=== PATIENT | male | born 1965 | race Caucasian/White ===

== ENCOUNTER 2016-06-08 19:25 | Emergency (ER) | payer OTHER ==
[~2016-06-08] VITALS: Ht 180.3 cm; Wt 75.0 kg
[~2016-06-08 19:25] MED LIST: AMIT1TAB79 PO; FOLI1TAB4 PO; PARO20TA2 PO; PRAZ1 PO; PROT40TA PO; QUET1TAB7 PO; SERO100T PO; TRAZ50TA12 PO
[2016-06-08 19:39] VITALS: BP 154/86; PULSE 88; RESP 22; TEMP 98.9; O2SAT 99
--- NOTE | 2016-06-08 19:42 | PD ---
HPI Chief Complaint: Psychiatric Symptoms Time Seen by Provider: 19:41 Travel History International Travel<30 days: No Contact w/Intl Traveler<30days: No History of Present Illness HPI 50 year old male with history of bipolar, depression, PTSD presents to the ED under Delgado act for psychiatric evaluation. Patient endorses suicidal ideation , states that he intends to stab himself with a knife. Endorses previous history of psychiatric hospitalization and previous suicide attempt. He endorses drinking heavily, states that he feels like "the world is unsafe." He wants to be admitted to the inpatient treatment center. Denies somatic complaints on presentation. PFSH Past Medical History Blood Disorders: No Bipolar Disorder: Yes Anxiety: Yes (PANIC DISORDERS) Depression: Yes Cancer: No Cardiovascular Problems: Yes (HTN) Chest Pain: Yes Cerebrovascular Accident: Yes Diabetes: No Diminished Hearing: No Endocrine: No Gastrointestinal Disorders: Yes (hep c) GERD: Yes Genitourinary: Yes Hepatitis: Yes (HEP C) Hypertension: Yes Immune Disorder: No Implanted Vascular Access Dvce: Yes Insomnia: Yes Kidney Stones: Yes Musculoskeletal: No Neurologic: No Psychiatric: Yes (bipolar disorder) Reproductive: No Respiratory: No Integumentary: Yes Immunizations Current: Yes Migraines: Yes Radiation Therapy: No Renal Failure: No Schizophrenia: Yes Seizures: No Ulcer: Yes Past Surgical History Abdominal Surgery: No AICD: No Body Medical Devices: TITANIUM PIECE LEFT CHEEK AREA. Cardiac Surgery: No Ear Surgery: No Endocrine Surgery: No Eye Surgery: No Genitourinary Surgery: No Joint Replacement: No Neurologic Surgery: No Oral Surgery: No Pacemaker: No Thoracic Surgery: No Other Surgery: Yes (FACIAL SURGERY) Social History Alcohol Use: Yes (PT ADMITS TO DRINKING A 24 PACK BEER DAILY. 1/5 + per day. ) Tobacco Use: Yes (5 cig per day) Substance Use: Yes (LONG H/O COCAINE, DAILY ALCOHOL ABUSE) Allergies-Medications (Allergen,Severity, Reaction): Coded Allergies: Penicillin (Verified Adverse Reaction, Severe, SYNCOPE, 06/08/16) PT DENIES ANY ALLERGY Reported Meds & Prescriptions Reported Meds & Active Scripts Active Trazodone (Trazodone HCl) 50 Mg Tab 100 Mg PO HS Quetiapine (Quetiapine Fumarate) 25 Mg Tab 50 Mg PO HS Minipress (Prazosin HCl) 1 Mg Cap 1 Mg PO Q12HR Paroxetine (Paroxetine HCl) 20 Mg Tab 20 Mg PO DAILY Protonix (Pantoprazole Sodium) 40 Mg Tab 40 Mg PO DAILY Folate (Folic Acid) 1 Mg Tab 1 Mg PO DAILY Elavil (Amitriptyline HCl) 25 Mg Tab 25 Mg PO HS 30 Days Paroxetine (Paroxetine HCl) 20 Mg Tab 20 Mg PO DAILY 30 Days Reported Seroquel (Quetiapine Fumarate) 100 Mg Tab 100 Mg PO DAILY Review of Systems ROS Limitations: Intoxication Except as stated in HPI: all other systems reviewed are Neg Physical Exam Exam Limitations: Intoxication Narrative GENERAL: Well-nourished, well-developed intoxicated white male in no acute distress. SKIN: Warm and dry. HEAD: Normocephalic. EYES: No scleral icterus. No injection or drainage. NECK: Supple, trachea midline. No JVD or lymphadenopathy. CARDIOVASCULAR: Regular rate and rhythm without murmurs, gallops, or rubs. 2+ DP and radial pulses bilaterally. RESPIRATORY: Breath sounds clear and equal bilaterally. No accessory muscle use. GASTROINTESTINAL: Abdomen soft, non-tender, nondistended. active bowel sounds. MUSCULOSKELETAL: No cyanosis, or edema. Patient is ambulatory and moves extremities spontaneously. BACK: Nontender without obvious deformity. No CVA tenderness. Data Data Last Documented VS Vital Signs Date Time Temp Pulse Resp B/P Pulse Ox O2 Delivery O2 Flow Rate FiO2 06/09/16 08:03 99 20 169/102 06/08/16 19:39 98.9 99 Orders Complete Blood Count With Diff (06/08/16 19:41) Comprehensive Metabolic Panel (06/08/16 19:41) Drug Screen, Random Urine (06/08/16 19:41) Alcohol (Ethanol) (06/08/16 19:41) Psych Screen (06/08/16 19:41) Thiamine Inj (Thiamine Inj) (06/08/16 22:00) Diet Regular Basic (06/09/16 Breakfast) Lorazepam (Ativan) (06/09/16 08:22) Labs Laboratory Tests Test 06/08/16 06/08/16 20:09 20:10 White Blood Count 9.7 TH/MM3 Red Blood Count 5.14 MIL/MM3 Hemoglobin 15.8 GM/DL Hematocrit 46.5 % Mean Corpuscular Volume 90.4 FL Mean Corpuscular Hemoglobin 30.8 PG Mean Corpuscular Hemoglobin 34.1 % Concent Red Cell Distribution Width 14.7 % Platelet Count 311 TH/MM3 Mean Platelet Volume 7.6 FL Neutrophils (%) (Auto) 54.1 % Lymphocytes (%) (Auto) 31.8 % Monocytes (%) (Auto) 9.8 % Eosinophils (%) (Auto) 3.2 % Basophils (%) (Auto) 1.1 % Neutrophils # (Auto) 5.3 TH/MM3 Lymphocytes # (Auto) 3.1 TH/MM3 Monocytes # (Auto) 1.0 TH/MM3 Eosinophils # (Auto) 0.3 TH/MM3 Basophils # (Auto) 0.1 TH/MM3 CBC Comment DIFF FINAL Differential Comment Sodium Level 140 MEQ/L Potassium Level 3.5 MEQ/L Chloride Level 104 MEQ/L Carbon Dioxide Level 26.4 MEQ/L Anion Gap 10 MEQ/L Blood Urea Nitrogen 8 MG/DL Creatinine 0.85 MG/DL Estimat Glomerular Filtration 96 ML/MIN Rate Random Glucose 94 MG/DL Calcium Level 8.6 MG/DL Total Bilirubin 0.2 MG/DL Aspartate Amino Transf 62 U/L (AST/SGOT) Alanine Aminotransferase 114 U/L (ALT/SGPT) Alkaline Phosphatase 85 U/L Total Protein 8.4 GM/DL Albumin 4.1 GM/DL Ethyl Alcohol Level 301 MG/DL Urine Opiates Screen NEG Urine Barbiturates Screen NEG Urine Amphetamines Screen NEG Urine Benzodiazepines Screen NEG Urine Cocaine Screen NEG Urine Cannabinoids Screen NEG MDM Medical Decision Making Medical Screen Exam Complete: Yes Emergency Medical Condition: Yes Differential Diagnosis Adjustment disorder versus anxiety versus bipolar versus depression versus dementia versus electrolyte disorder versus malingering versus mood disorder versus ODD versus psychosis versus PTSD versus schizophrenia versus schizoaffective disorder versus substance-induced mood disorder versus other Narrative Course 50-year-old male with history of alcohol dependence, depression, anxiety, bipolar presents to the ED under Delgado act for evaluation of SI. Patient states that he wants to stab himself with a knife. States that he feels the world is unsafe. He endorses history of previous suicide attempt and previous psychiatric hospitalization. Denies somatic complaints on presentation. Reviewed. Physical exam reveals an intoxicated white male in no acute distress. Chest is clear to auscultation bilaterally. Abdomen is soft and nontender. Otherwise unremarkable. Lab work pending. Patient signed out to Dr. Rogers. Anticipate medical clearance for psychiatric evaluation. Please see their notes for disposition. Diagnosis Primary Impression: Medical clearance for psychiatric admission Additional Impression: Alcohol dependence Qualified Code: F10.20 - Uncomplicated alcohol dependence Shari Mejia Jun 08, 2016 19:42
[2016-06-08 20:37] LABS: AUTOMATED NEUTROPHIL # 5.3 TH/MM3 (1.8-7.7); BASOPHIL # 0.1 TH/MM3 (0-0.2); BASOPHIL % 1.1 % (0.0-2.0); EOSINOPHIL # 0.3 TH/MM3 (0-0.4); EOSINOPHIL % 3.2 % (0.0-4.0); HEMATOCRIT 46.5 % (39.0-51.0); HEMO FLAGS DIFF FINAL; LYMPH % 31.8 % (9.0-44.0); LYMPHOCYTE # 3.1 TH/MM3 (1.0-4.8); MEAN CELL VOLUME 90.4 FL (80.0-100.0); MEAN CORPUSCULAR HEMOGLOBIN 30.8 PG (27.0-34.0); MEAN CORPUSCULAR HGB CONC 34.1 % (32.0-36.0); MONO % 9.8 % (0.0-8.0); NEUT % 54.1 % (16.0-70.0); PLATELET COUNT 311 TH/MM3 (150-450); RED BLOOD COUNT 5.14 MIL/MM3 (4.50-5.90); RED CELL DISTRIBUTION WIDTH 14.7 % (11.6-17.2); WHITE BLOOD COUNT 9.7 TH/MM3 (4.0-11.0)
[2016-06-08 20:38] LABS: AMPHETAMINE, URINE NEG (NEG); BARBITURATES, URINE NEG (NEG); COCAINE, URINE NEG (NEG)
[2016-06-08 20:53] LABS: ANION GAP 10 MEQ/L (5-15)
[2016-06-08 20:58] LABS: ALKALINE PHOSPHATASE 85 U/L (45-117); ALT (GPT) 114 U/L (12-78); AST (GOT) 62 U/L (15-37); BICARBONATE 26.4 MEQ/L (21.0-32.0); BLOOD UREA NITROGEN 8 MG/DL (7-18); CHLORIDE 104 MEQ/L (98-107); GLOMERULAR FILTRATION RATE 96 ML/MIN (>89); POTASSIUM 3.5 MEQ/L (3.5-5.1); SODIUM (NA) 140 MEQ/L (136-145); TOTAL BILIRUBIN ADULT 0.2 MG/DL (0.2-1.0)
--- NOTE | 2016-06-08 21:55 | PD ---
Physical Exam Narrative I, Dr. Rogers, have reviewed the advance practice practitioner's documentation and am in agreement, met with the patient face to face, made the diagnosis, and the medical decision making was done by me. *My assessment and Findings: Alcohol intoxication vs. suicidal ideation in pt with psych history. 50yo M with bipolar disorder here with suicidal ideation under hall act. Admits to drinking alcohol today as a mean of suicidal ideation. Denies any falls or complaints. Pt is AAOx3 and following commands. Initially seen by midlevel provider. I ordered thiamine 100mg IV. Labs reviewed, no leukocytosis. CMP showed elevated liver enzyme, no abdominal tenderness. Blood alcohol is 301. Utox negative. Pt is currently not in withdrawal. Pt is medically clear for psych evaluation. Data Data Last Documented VS Vital Signs Date Time Temp Pulse Resp B/P Pulse Ox O2 Delivery O2 Flow Rate FiO2 06/09/16 08:03 99 20 169/102 06/08/16 19:39 98.9 99 Orders Complete Blood Count With Diff (06/08/16 19:41) Comprehensive Metabolic Panel (06/08/16 19:41) Drug Screen, Random Urine (06/08/16 19:41) Alcohol (Ethanol) (06/08/16 19:41) Psych Screen (06/08/16 19:41) Thiamine Inj (Thiamine Inj) (06/08/16 22:00) Diet Regular Basic (06/09/16 Breakfast) Lorazepam (Ativan) (06/09/16 08:22) Labs Laboratory Tests Test 06/08/16 06/08/16 20:09 20:10 White Blood Count 9.7 TH/MM3 Red Blood Count 5.14 MIL/MM3 Hemoglobin 15.8 GM/DL Hematocrit 46.5 % Mean Corpuscular Volume 90.4 FL Mean Corpuscular Hemoglobin 30.8 PG Mean Corpuscular Hemoglobin 34.1 % Concent Red Cell Distribution Width 14.7 % Platelet Count 311 TH/MM3 Mean Platelet Volume 7.6 FL Neutrophils (%) (Auto) 54.1 % Lymphocytes (%) (Auto) 31.8 % Monocytes (%) (Auto) 9.8 % Eosinophils (%) (Auto) 3.2 % Basophils (%) (Auto) 1.1 % Neutrophils # (Auto) 5.3 TH/MM3 Lymphocytes # (Auto) 3.1 TH/MM3 Monocytes # (Auto) 1.0 TH/MM3 Eosinophils # (Auto) 0.3 TH/MM3 Basophils # (Auto) 0.1 TH/MM3 CBC Comment DIFF FINAL Differential Comment Sodium Level 140 MEQ/L Potassium Level 3.5 MEQ/L Chloride Level 104 MEQ/L Carbon Dioxide Level 26.4 MEQ/L Anion Gap 10 MEQ/L Blood Urea Nitrogen 8 MG/DL Creatinine 0.85 MG/DL Estimat Glomerular Filtration 96 ML/MIN Rate Random Glucose 94 MG/DL Calcium Level 8.6 MG/DL Total Bilirubin 0.2 MG/DL Aspartate Amino Transf 62 U/L (AST/SGOT) Alanine Aminotransferase 114 U/L (ALT/SGPT) Alkaline Phosphatase 85 U/L Total Protein 8.4 GM/DL Albumin 4.1 GM/DL Ethyl Alcohol Level 301 MG/DL Urine Opiates Screen NEG Urine Barbiturates Screen NEG Urine Amphetamines Screen NEG Urine Benzodiazepines Screen NEG Urine Cocaine Screen NEG Urine Cannabinoids Screen NEG MDM Supervised Visit with ELEONORA: Yes Diagnosis Primary Impression: Medical clearance for psychiatric admission Additional Impression: Alcohol dependence Qualified Code: F10.20 - Uncomplicated alcohol dependence Tasia Rogers DO Jun 08, 2016 21:55
[2016-06-08] MEDS ORDERED: THIAMINE INJ 100 MG in SODIUM CHLORIDE 0.9% INJ 100 ML IV ONE (22:00)
[2016-06-09 08:03] VITALS: BP 169/102; PULSE 99; RESP 20
[2016-06-09] MEDS ORDERED: LORazepam 2 MG TAB PO STA (08:22)
--- NOTE | 2016-06-09 12:23 | PD.CONS ---
Provisional Diagnosis Admission Date [place]. Alcohol-induced mood disorder, alcohol use disorder History of Present Illness Service Psychiatry Consult Requested By Primary Care Physician No Primary Care Physician HPI The patient is a 50 year old white man, homeless, , unemployed, with self reported psychiatric history of PTSD, bipolar disorder, multiple psychiatric hospitalizations, multiple suicidal attempts, self cutting behavior with suicidal and will suicidal intentions, several ER visits with a very similar presentation, almost always with alcohol related problems, history of noncompliance with medication and psychiatric recommendations, who presents to the ED under Delgado act for psychiatric evaluation. Patient endorsed suicidal ideation on arrival, stated that he intend to stab himself with a knife. On psychiatric evaluation today, patient is clinically sober, he says the last night he was drunk, he has been drinking alcohol every day for the last 2 years , but just today he was abandoned by his girlfriend, felt really sad,, drank more alcohol than usual, and felt suicidal. Today he feels much better, is his still sad, but he doesn't want to kill himself, he prefers to go to detox and fight with his alcoholism. Patient denies suicidal or homicidal ideation at this moment. He denies visual and auditory hallucinations. Patient is fully oriented 3, he denies the use of illicit drug. Past Family Social History Coded Allergies: Penicillin (Verified Adverse Reaction, Severe, SYNCOPE, 06/08/16) PT DENIES ANY ALLERGY Active Scripts Trazodone 50 Mg [id number] Mg PO HS #60 TAB Prov:Yolie Chamberlain MD 05/04/16 Quetiapine 25 Mg Tab50 Mg PO HS #60 TAB Prov:Yolie Chamberlain MD 05/04/16 Prazosin (Minipress)1 Mg Cap1 Mg PO Q12HR #60 CAP Prov:Yolie Chamberlain MD 05/04/16 Paroxetine 20 Mg Tab20 Mg PO DAILY #30 TAB Prov:Yolie Chamberlain MD 05/04/16 Pantoprazole (Protonix)40 Mg Tab40 Mg PO DAILY #30 TAB Ref 0 Prov:Yovani Rashid 04/21/16 Folic Acid (Folate)1 Mg Tab1 Mg PO DAILY #5 TAB Ref 0 Prov:Yovani Rashid 04/21/16 Amitriptyline HCl (Elavil)25 Mg Tab25 Mg PO HS 30 Days Prov:Yovani Rashid 04/21/16 Paroxetine 20 Mg Tab20 Mg PO DAILY 30 Days Prov:Yovani Rashid 04/21/16 Reported Medications Quetiapine (Seroquel)100 Mg Fig641 Mg PO DAILY #30 TAB Ref 0 04/20/16 Discontinued Scripts Thiamine (Vitamin B-1)100 Mg [id number] Mg PO DAILY 5 Days Prov:Yovani Rashid 04/21/16 Physical Exam Vital Signs Vital Signs Date Time Temp Pulse Resp B/P Pulse Ox O2 Delivery O2 Flow Rate FiO2 06/09/16 08:03 99 20 169/102 06/08/16 19:39 98.9 99 Mental Status Examination Appearance man, [facility], age appearing, good hygiene, calm and cooperative Speech: Unremarkable Orientation: x3 Memory: Unremarkable Thought Process: Logical Thought Content: Unremarkable Hallucination Type: None Suicidal Ideation: No Previous Suicide Attempts: Yes Homicidal Ideation: No Previous Homicide Attempts: No Judgement: WNL Affect: Good Mood: Appropriate Motor Activity: Normal gait Assessment & Plan Problem List: (1) Alcohol abuse with alcohol-induced mood disorder Assessment & Plan: At the moment of this evaluation the patient does not present any evidence of depression, anxiety, psychosis or faustina. Patient denies suicidal and homicidal ideation. Patient denies visual and auditory hallucinations. Yesterday's suicidal statement was secondary to poor judgment and disorganized thought related with acute alcohol intoxication. Patient does not meet criteria for psychiatric admission at this moment. Is important to clarify that due to robust history of noncompliant with medication, psychiatric recommendations, personality pathology and his sustained use of alcohol, the patient carries at chronic elevated risk for impulsive behavior and suicidality. Delgado act will be lifted. Support, motivation psychoeducation provided. Referral for detox in [facility] provided. ICD Code: F10.14 Assessment & Plan Estimated LOS: Duc Parham MD Jun 09, 2016 12:22
== END 2016-06-09 10:36 | disposition home or self-care (01) ==
LOC: NEPA 19:25
DX: F10.14 Alcohol abuse with alcohol-induced mood disorder (principal); F41.9 Anxiety disorder, unspecified; I10 Essential (primary) hypertension; B19.20 Unspecified viral hepatitis C without hepatic coma; K21.9 Gastro-esophageal reflux disease without esophagitis
CPT/HCPCS: 80053; 80307; 80320; 85025; 96365; 96366; 99284; J3411

== ENCOUNTER 2016-06-15 14:06 | Emergency (ER) | payer SELFPAY ==
[~2016-06-15] VITALS: Ht 180.3 cm; Wt 80.0 kg
[2016-06-15 14:26] VITALS: BP 138/94; PULSE 115; RESP 18; TEMP 97.3; O2SAT 97
[2016-06-15] MEDS ORDERED: SODIUM CHLOR 0.9% 1000 ML INJ 1,000 ML IV ONE ×2 (14:45→17:00)
--- NOTE | 2016-06-15 14:57 | PD ---
HPI Chief Complaint: Psychiatric Symptoms Time Seen by Provider: 14:53 Travel History International Travel<30 days: No Contact w/Intl Traveler<30days: No Traveled to known affect area: No History of Present Illness HPI Patient is a 50-year-old male who was seen in the ambulance call. Patient presented to the emergency department under a Delgado act for suicidal ideations. He states that he is tired of dealing with his life, his girlfriend left him a few weeks ago and he has not been able to deal with that. He states that he said something to her while he was heavily intoxicated which upset her and she left. He reports alcohol use, cocaine, marijuana, methamphetamine. He denies any physical complaints at this time. He denies any visual/auditory hallucinations. He reports he has been taking his Abilify for the last 2 days. He reports a history of suicide attempts, he states he attempted to overdose on pills, or cut his wrists. PFSH Past Medical History Blood Disorders: No Bipolar Disorder: Yes Anxiety: Yes (PANIC DISORDERS) Depression: Yes Cancer: No Cardiovascular Problems: Yes (HTN) Chest Pain: Yes Cerebrovascular Accident: Yes Diabetes: No Diminished Hearing: No Endocrine: No Gastrointestinal Disorders: Yes (hep c) GERD: Yes Genitourinary: Yes Hepatitis: Yes (HEP C) Hypertension: Yes Immune Disorder: No Implanted Vascular Access Dvce: No Insomnia: Yes Kidney Stones: Yes Musculoskeletal: No Neurologic: No Psychiatric: Yes (bipolar disorder) Reproductive: No Respiratory: No Integumentary: Yes Immunizations Current: Yes Migraines: Yes Radiation Therapy: No Renal Failure: No Schizophrenia: Yes Seizures: No Ulcer: Yes Past Surgical History Abdominal Surgery: No AICD: No Body Medical Devices: TITANIUM PIECE LEFT CHEEK AREA. Cardiac Surgery: No Ear Surgery: No Endocrine Surgery: No Eye Surgery: No Genitourinary Surgery: No Joint Replacement: No Neurologic Surgery: No Oral Surgery: No Pacemaker: No Thoracic Surgery: No Other Surgery: Yes (FACIAL SURGERY) Social History Alcohol Use: Yes (PT ADMITS TO DRINKING A 24 PACK BEER DAILY. 1/5 + per day. ) Tobacco Use: Yes (5 cig per day) Substance Use: Yes (LONG H/O COCAINE, DAILY ALCOHOL ABUSE) Allergies-Medications (Allergen,Severity, Reaction): Coded Allergies: Penicillin (Verified Adverse Reaction, Severe, SYNCOPE, 06/08/16) PT DENIES ANY ALLERGY Reported Meds & Prescriptions Reported Meds & Active Scripts Active Trazodone (Trazodone HCl) 50 Mg Tab 100 Mg PO HS Quetiapine (Quetiapine Fumarate) 25 Mg Tab 50 Mg PO HS Minipress (Prazosin HCl) 1 Mg Cap 1 Mg PO Q12HR Paroxetine (Paroxetine HCl) 20 Mg Tab 20 Mg PO DAILY Protonix (Pantoprazole Sodium) 40 Mg Tab 40 Mg PO DAILY Folate (Folic Acid) 1 Mg Tab 1 Mg PO DAILY Elavil (Amitriptyline HCl) 25 Mg Tab 25 Mg PO HS 30 Days Paroxetine (Paroxetine HCl) 20 Mg Tab 20 Mg PO DAILY 30 Days Reported Seroquel (Quetiapine Fumarate) 100 Mg Tab 100 Mg PO DAILY Review of Systems Except as stated in HPI: all other systems reviewed are Neg Psychiatric: Positive: Depression, Suicidal Ideations, Mood Disorder, Substance Abuse Physical Exam Narrative GENERAL: Well-developed, well-nourished, alert male. Smells of alcohol SKIN: Warm and dry. HEAD: Atraumatic. Normocephalic. EYES: Pupils equal and round. No scleral icterus. No injection or drainage. ENT: No nasal bleeding or discharge. Mucous membranes pink and moist. NECK: Trachea midline. No JVD. CARDIOVASCULAR: Tachycardic. No murmur appreciated. RESPIRATORY: No accessory muscle use. Clear to auscultation. Breath sounds equal bilaterally. GASTROINTESTINAL: Abdomen soft, non-tender, nondistended. Hepatic and splenic margins not palpable. MUSCULOSKELETAL: No obvious deformities. No clubbing. No cyanosis. No edema. NEUROLOGICAL: Awake and alert. No obvious cranial nerve deficits. Motor grossly within normal limits. Normal speech. PSYCHIATRIC: Depressed mood and flat affect; insight and judgment impaired. Data Data Last Documented VS Vital Signs Date Time Temp Pulse Resp B/P Pulse Ox O2 Delivery O2 Flow Rate FiO2 06/15/16 16:58 78 18 117/72 98 Room Air 06/15/16 14:26 97.3 Orders Comprehensive Metabolic Panel (06/15/16 14:39) Iv Access Insert/Monitor (06/15/16 14:39) Ecg Monitoring (06/15/16 14:39) Alcohol (Ethanol) (06/15/16 14:39) Psych Screen (06/15/16 14:39) Sodium Chlor 0.9% 1000 Ml Inj (Ns 1000 M (06/15/16 14:45) Sodium Chlor 0.9% 1000 Ml Inj (Ns 1000 M (06/15/16 17:00) Diet Heart Healthy (06/15/16 Dinner) Alcohol Withdrawal Asmt-Ciwa [id number] (06/15/16 17:40) Flumazenil Inj (Romazicon Inj) (06/15/16 17:45) Lorazepam (Ativan) (06/15/16 17:45) Lorazepam Inj (Ativan Inj) (06/15/16 17:45) Lorazepam (Ativan) (06/15/16 17:45) Lorazepam Inj (Ativan Inj) (06/15/16 17:45) Lorazepam Inj (Ativan Inj) (06/15/16 17:45) Lorazepam Inj (Ativan Inj) (06/15/16 17:45) Thiamine (Vit B1) (Vitamin B1) (06/16/16 09:00) Folic Acid (Folate) (06/16/16 09:00) ^ Seizure Precautions (06/15/16 17:40) ^ Other Nursing Orders (06/15/16 17:40) Labs Laboratory Tests Test 06/15/16 14:50 Sodium Level 139 MEQ/L Potassium Level 3.4 MEQ/L Chloride Level 103 MEQ/L Carbon Dioxide Level 24.1 MEQ/L Anion Gap 12 MEQ/L Blood Urea Nitrogen 8 MG/DL Creatinine 1.05 MG/DL Estimat Glomerular Filtration 75 ML/MIN Rate Random Glucose 57 MG/DL Calcium Level 9.1 MG/DL Total Bilirubin 0.4 MG/DL Aspartate Amino Transf 55 U/L (AST/SGOT) Alanine Aminotransferase 72 U/L (ALT/SGPT) Alkaline Phosphatase 97 U/L Total Protein 8.9 GM/DL Albumin 4.6 GM/DL Ethyl Alcohol Level 228 MG/DL MDM Medical Decision Making Medical Screen Exam Complete: Yes Emergency Medical Condition: Yes Medical Record Reviewed: Yes Interpretation(s) Vital Signs Date Time Temp Pulse Resp B/P Pulse Ox O2 Delivery O2 Flow Rate FiO2 06/15/16 14:26 97.3 115 18 138/94 97 Differential Diagnosis Suicidal ideations versus mood disorder versus substance abuse versus psychosis versus delirium versus intoxication versus other Narrative Course Patient is a 50-year-old male who is brought in under Delgado act for suicidal ideations. Patient has been here multiple times for suicidal ideations. He reports a history of suicide attempts. He endorses alcoholism, illicit drug use. Upon initial presentation patient was noted to be tachycardic with a rate of 115. He had labs drawn on 08 June 2016. Today we repeated chemistry was ordered as well as an alcohol level. Chemistry with a potassium of 3.4, this was replaced orally. Alcohol level was elevated, patient admits to drinking alcohol this morning. After 2 L of IV fluids patient's heart rate was assessed at 78. Patient ate, and feels well. Patient is medically cleared for psychiatric evaluation at this time. Diagnosis Primary Impression: Medical clearance for psychiatric admission Condition: Stable Renetta Graham Jun 15, 2016 14:57
[2016-06-15 15:49] LABS: ALT (GPT) 72 U/L (12-78); ANION GAP 12 MEQ/L (5-15); AST (GOT) 55 U/L (15-37); BICARBONATE 24.1 MEQ/L (21.0-32.0); BLOOD UREA NITROGEN 8 MG/DL (7-18); CHLORIDE 103 MEQ/L (98-107); GLOMERULAR FILTRATION RATE 75 ML/MIN (>89); POTASSIUM 3.4 MEQ/L (3.5-5.1); SODIUM (NA) 139 MEQ/L (136-145)
[2016-06-15 15:51] LABS: ALKALINE PHOSPHATASE 97 U/L (45-117); TOTAL BILIRUBIN ADULT 0.4 MG/DL (0.2-1.0)
[2016-06-15 16:58] VITALS: BP 117/72; PULSE 78; RESP 18; O2SAT 98
[2016-06-15] MEDS ORDERED: LORazepam 2 MG/ML VIAL IM PRN ×4 (17:45)
[2016-06-15] MEDS ORDERED: LORazepam 2 MG TAB PO PRN (17:45)
[2016-06-15] MEDS ORDERED: FLUMAZENIL 1 MG/10 ML VIAL IV PUSH PRN (18:00)
[2016-06-15] MEDS ORDERED: POTASSIUM CHLORIDE 10 MEQ CONTROLLED RELEASE TAB PO ONE (18:30)
[2016-06-15 22:25] VITALS: BP 161/95; PULSE 110; RESP 19; O2SAT 98
--- NOTE | 2016-06-15 23:35 | MB ---
cc: TRISHA FLORES MD DATE OF CONSULTATION: 06/15/2016 REASON FOR CONSULTATION: Delgado Act REFERRING PHYSICIAN: Emergency department. HISTORY OF PRESENT ILLNESS Mr. Riojas is a 50-year-old male with a reported history of PTSD and a chart history of depression, alcohol induced mood disorder, as well as bipolar illness, who presents under a Delgado Act from [facility] alleging that the patient said he wanted to harm himself by finding a way to kill himself. Reviewing the electronic medical record I note that the patient was seen about a week ago in consultation by Dr. Wilkerson and discharged from the ED at that time. His most recent psychiatric admission was in April of [address] Chamberlain. The patient was seen and examined. Chart reviewed. The case discussed with nurse. On my examination today, the patient appears to be clinically sober. There is no evidence of slurring of speech or ataxia. He says that he feels like his psychiatric issues are primary and if they can be tended to his alcohol use issues will subside. I do see from Dr. Pryor's note that there is a significant personality disorder component. The patient says that he feels acutely dysphoric because he has recently from his fiance, Tonie López. He endorses suicidal ideation. In addition to low mood and suicidal ideation, he says that he experiences audiovisual hallucinations "at times." He also says that he experiences a lot of "fear and regret." No specific suicidal plan or intent are articulated to me. The remainder of the ROS is negative. PAST PSYCHIATRIC HISTORY The patient reports a prior diagnosis of post-traumatic stress disorder as the chart diagnoses as noted above. He is not currently under the care of a psychiatrist but says that he has an appointment at [facility] on Wednesday. He denies any recent psychiatric admissions since the one under Dr. Chamberlain in April. He endorses a history of multiple prior suicide attempts. FAMILY HISTORY The patient reports that his maternal grandfather and cousin both completed suicide. Chemical dependency history: The patient reports that he relapsed to alcohol use fairly recently. The patient reports he had been sober for five days prior to relapsing to alcohol use. I do note that his alcohol level was elevated at this time at 228 and was elevated a week ago under Dr. Pryor at 301. Alcohol level has been persistently elevated the last several times it was checked except in March of last year. The patient endorses history of DTs and seizures. He complains of some sweatiness now. No other withdrawal symptoms. SOCIAL HISTORY: The patient reports that he is presently homeless. He has two years of college. 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 He recently split up with his fiance, Bella López. He has three children. No reported access to guns or firearms. PAST MEDICAL HISTORY See electronic medical record:. REVIEW OF SYSTEMS No reported physical symptoms except for the withdrawal symptoms noted above. PHYSICAL EXAMINATION Physical examination was completed in the emergency room by the ER staff. The patient is not yet medically cleared at the time of my evaluation. On my examination today, the patient is mildly diaphoretic without any hand tremor or mydriasis or other signs of withdrawal. No other abnormal motor movements noted. Labs and vital signs reviewed. MENTAL STATUS EXAMINATION: The patient is casually dressed. He is somewhat desheveled. He is awake, alert and oriented x3. No evidence of delirium. No abnormal motor movements noted. Mood is depressed. Affect is restricted. Speech is within normal limits for rate, tone and volume. Language and fund of knowledge seem at least average for age. Thought process linear. No loosening of association. No evident delusions. Denies audiovisual hallucinations presently. Endorses vague suicidal ideation without specific plan or intent, articulated at this time. No homicidal ideation. Insight and judgment are unclear. ASSESSMENT AND PLAN: 1. Alcohol dependence with alcohol induced mood disorder. F10.24. This is a 50 year-old male with psychiatric history as detailed above, who presents on [facility] I[facility], alleging suicidal ideation. At the time of my evaluation the patient is clinically sober and continues to endorse some vague suicidal ideation. Apparently the acute psychosocial stressor is splitting up with his fiance. The patient is requesting inpatient psychiatric services at this time. I will leave the [employer] Act in place. Once he is medically cleared the patient may be transferred to the [facility]. I will instruct the nursing staff there to place him on the ACT wait list. I will provide him in the meantime with medications for the management of any withdrawal and place him on seizure precautions. The case was discussed with the RN in the OD. Thank you for the consultation. Trisha RHODES /5:45 PM /11:12 PM TO
[2016-06-16 02:30] VITALS: BP 119/70; PULSE 81; RESP 18; O2SAT 96
[2016-06-16] MEDS: LORazepam 1 MG TAB PO PRN ×2 (05:35→11:43)
[2016-06-16 06:00] VITALS: BP 149/103; PULSE 96; RESP 18; O2SAT 97
[2016-06-16] MEDS ORDERED: FOLIC ACID 1 MG TAB PO SCH (09:00)
[2016-06-16] MEDS ORDERED: THIAMINE HCL 100 MG TAB PO SCH (09:00)
== END 2016-06-16 17:53 ==
LOC: NEDAMB 14:06 → NEPJ 06-16 17:53
DX: F10.20 Alcohol dependence, uncomplicated (principal); F39 Unspecified mood [affective] disorder; F31.9 Bipolar disorder, unspecified; F41.8 Other specified anxiety disorders; I10 Essential (primary) hypertension; B19.20 Unspecified viral hepatitis C without hepatic coma; F20.9 Schizophrenia, unspecified; F14.10 Cocaine abuse, uncomplicated; F43.10 Post-traumatic stress disorder, unspecified; Z59.0 Homelessness; Z72.0 Tobacco use; Y90.7 Blood alcohol level of 200-239 mg/100 ml
CPT/HCPCS: 80053; 80320; 96372; 99285; J2060; J7030

== ENCOUNTER 2016-07-11 20:28 | Emergency (ER) | payer OTHER ==
[~2016-07-11] VITALS: Ht 180.3 cm; Wt 80.0 kg
--- NOTE | 2016-07-11 20:51 | PD ---
HPI Chief Complaint: Psychiatric Symptoms Time Seen by Provider: 20:44 Travel History International Travel<30 days: No Contact w/Intl Traveler<30days: No History of Present Illness HPI 50-year-old male with reported history of PTSD, depression, alcohol abuse here with complaint of suicidal ideation. Patient states that his fianc recently left him and his children will talk to him. He is feeling increasingly depressed, suicidal. He is thought about jumping in front of traffic. Patient states he has not been taking his medications as prescribed. Patient was Delgado acted by police and brought here for further evaluation. PFSH Past Medical History Blood Disorders: No Bipolar Disorder: Yes Anxiety: Yes (PANIC DISORDERS) Depression: Yes Cancer: No Cardiovascular Problems: Yes (HTN) Chest Pain: Yes Cerebrovascular Accident: Yes Diabetes: No Diminished Hearing: No Endocrine: No Gastrointestinal Disorders: Yes (hep c) GERD: Yes Genitourinary: Yes Hepatitis: Yes (HEP C) Hypertension: Yes Immune Disorder: No Implanted Vascular Access Dvce: No Insomnia: Yes Kidney Stones: Yes Musculoskeletal: No Neurologic: No Psychiatric: Yes (bipolar disorder) Reproductive: No Respiratory: No Integumentary: Yes Immunizations Current: Yes Migraines: Yes Radiation Therapy: No Renal Failure: No Schizophrenia: Yes Seizures: No Ulcer: Yes Past Surgical History Abdominal Surgery: No AICD: No Body Medical Devices: TITANIUM PIECE LEFT CHEEK AREA. Cardiac Surgery: No Ear Surgery: No Endocrine Surgery: No Eye Surgery: No Genitourinary Surgery: No Joint Replacement: No Neurologic Surgery: No Oral Surgery: No Pacemaker: No Thoracic Surgery: No Other Surgery: Yes (FACIAL SURGERY) Social History Alcohol Use: Yes (PT ADMITS TO DRINKING A 24 PACK BEER DAILY. 1/5 + per day. ) Tobacco Use: Yes (5 cig per day) Substance Use: Yes (LONG H/O COCAINE, DAILY ALCOHOL ABUSE) Allergies-Medications (Allergen,Severity, Reaction): Coded Allergies: Penicillin (Verified Adverse Reaction, Severe, SYNCOPE, 06/08/16) PT DENIES ANY ALLERGY Reported Meds & Prescriptions Reported Meds & Active Scripts Active Quetiapine (Quetiapine Fumarate) 25 Mg Tab 50 Mg PO HS Folate (Folic Acid) 1 Mg Tab 1 Mg PO DAILY Reported Vistaril (Hydroxyzine Pamoate) 50 Mg Cap 50 Mg PO QID PRN Bupropion HCl 100 Mg Tab 150 Mg PO HS Seroquel (Quetiapine Fumarate) 100 Mg Tab 100 Mg PO DAILY Review of Systems Except as stated in HPI: all other systems reviewed are Neg Physical Exam Narrative GENERAL: Middle-aged male in no acute distress SKIN: Warm and dry. HEAD: Normocephalic. EYES: No scleral icterus. No injection or drainage. ENT: Mucous membranes pink and moist. NECK: Supple CARDIOVASCULAR: Regular rate and rhythm. No murmur appreciated. RESPIRATORY: No accessory muscle use. Clear to auscultation. Breath sounds equal bilaterally. GASTROINTESTINAL: Abdomen soft, non-tender, nondistended. MUSCULOSKELETAL: Normal gait NEUROLOGICAL: Awake and alert. No clonus or rigidity. Motor grossly within normal limits. Normal speech. PSYCHIATRIC: Depressed mood and affect, intermittently tearful. Poor eye contact. Depression with suicidal ideation with questionable plan. Denies delusions, hallucinations or homicidal ideation. Data Data Last Documented VS Vital Signs Date Time Temp Pulse Resp B/P Pulse Ox O2 Delivery O2 Flow Rate FiO2 07/11/16 20:55 98.6 119 18 154/92 95 Orders Complete Blood Count With Diff (07/11/16 20:31) Comprehensive Metabolic Panel (07/11/16 20:31) Drug Screen, Random Urine (07/11/16 20:31) Alcohol (Ethanol) (07/11/16 20:31) Psych Screen (07/11/16 20:31) Labs Laboratory Tests Test 07/11/16 07/11/16 20:53 21:35 Urine Opiates Screen NEG Urine Barbiturates Screen NEG Urine Amphetamines Screen NEG Urine Benzodiazepines Screen NEG Urine Cocaine Screen NEG Urine Cannabinoids Screen NEG White Blood Count 12.8 TH/MM3 Red Blood Count 5.63 MIL/MM3 Hemoglobin 17.0 GM/DL Hematocrit 49.7 % Mean Corpuscular Volume 88.2 FL Mean Corpuscular Hemoglobin 30.2 PG Mean Corpuscular Hemoglobin 34.2 % Concent Red Cell Distribution Width 14.2 % Platelet Count 302 TH/MM3 Mean Platelet Volume 7.4 FL Neutrophils (%) (Auto) 66.7 % Lymphocytes (%) (Auto) 18.1 % Monocytes (%) (Auto) 13.9 % Eosinophils (%) (Auto) 0.5 % Basophils (%) (Auto) 0.8 % Neutrophils # (Auto) 8.5 TH/MM3 Lymphocytes # (Auto) 2.3 TH/MM3 Monocytes # (Auto) 1.8 TH/MM3 Eosinophils # (Auto) 0.1 TH/MM3 Basophils # (Auto) 0.1 TH/MM3 CBC Comment DIFF FINAL Differential Comment Sodium Level 132 MEQ/L Potassium Level 4.3 MEQ/L Chloride Level 95 MEQ/L Carbon Dioxide Level 24.9 MEQ/L Anion Gap 12 MEQ/L Blood Urea Nitrogen 12 MG/DL Creatinine 0.99 MG/DL Estimat Glomerular Filtration 81 ML/MIN Rate Random Glucose 112 MG/DL Calcium Level 9.0 MG/DL Total Bilirubin 0.4 MG/DL Aspartate Amino Transf 45 U/L (AST/SGOT) Alanine Aminotransferase 46 U/L (ALT/SGPT) Alkaline Phosphatase 98 U/L Total Protein 8.5 GM/DL Albumin 4.0 GM/DL Ethyl Alcohol Level 169 MG/DL [facility] Medical Decision Making Medical Screen Exam Complete: Yes Emergency Medical Condition: Yes Medical Record Reviewed: Yes Differential Diagnosis 50-year-old male with history of PTSD, depression and alcoholism here with complaint of suicidal ideation, depression since his fianc recently left him. Differential includes depression, adjustment reaction, bipolar disorder, personality disorder, substance induced mood disorder. Narrative Course CBC, CMP, blood alcohol level, urine drug screen obtained and notable for blood alcohol level 169. Patient medically clear for psychiatric evaluation. Leyla Byers MD Jul 11, 2016 20:51
[2016-07-11 20:55] VITALS: BP 154/92; PULSE 119; RESP 18; TEMP 98.6; O2SAT 95
[2016-07-11] MEDS ORDERED: VIST50CA PO (21:13)
[2016-07-11] MEDS ORDERED: BUPR100T4 PO (21:13)
[2016-07-11 21:22] LABS: AMPHETAMINE, URINE NEG (NEG); BARBITURATES, URINE NEG (NEG); COCAINE, URINE NEG (NEG)
[2016-07-11 21:47] LABS: AUTOMATED NEUTROPHIL # 8.5 TH/MM3 (1.8-7.7); BASOPHIL # 0.1 TH/MM3 (0-0.2); BASOPHIL % 0.8 % (0.0-2.0); EOSINOPHIL # 0.1 TH/MM3 (0-0.4); EOSINOPHIL % 0.5 % (0.0-4.0); HEMATOCRIT 49.7 % (39.0-51.0); HEMO FLAGS DIFF FINAL; LYMPH % 18.1 % (9.0-44.0); LYMPHOCYTE # 2.3 TH/MM3 (1.0-4.8); MEAN CELL VOLUME 88.2 FL (80.0-100.0); MEAN CORPUSCULAR HEMOGLOBIN 30.2 PG (27.0-34.0); MEAN CORPUSCULAR HGB CONC 34.2 % (32.0-36.0); MONO % 13.9 % (0.0-8.0); NEUT % 66.7 % (16.0-70.0); PLATELET COUNT 302 TH/MM3 (150-450); RED BLOOD COUNT 5.63 MIL/MM3 (4.50-5.90); RED CELL DISTRIBUTION WIDTH 14.2 % (11.6-17.2); WHITE BLOOD COUNT 12.8 TH/MM3 (4.0-11.0)
[2016-07-11 22:54] LABS: ALKALINE PHOSPHATASE 98 U/L (45-117); ALT (GPT) 46 U/L (12-78); ANION GAP 12 MEQ/L (5-15); AST (GOT) 45 U/L (15-37); BICARBONATE 24.9 MEQ/L (21.0-32.0); BLOOD UREA NITROGEN 12 MG/DL (7-18); CHLORIDE 95 MEQ/L (98-107); GLOMERULAR FILTRATION RATE 81 ML/MIN (>89); POTASSIUM 4.3 MEQ/L (3.5-5.1); SODIUM (NA) 132 MEQ/L (136-145); TOTAL BILIRUBIN ADULT 0.4 MG/DL (0.2-1.0)
[2016-07-11] MEDS ORDERED: LORazepam 1 MG TAB PO PRN (23:00)
[2016-07-11] MEDS ORDERED: LORazepam 2 MG/ML VIAL IV PUSH PRN ×4 (23:00)
[2016-07-11] MEDS ORDERED: FLUMAZENIL 0.5 MG/5 ML VIAL IV PUSH PRN (23:00)
[2016-07-12 04:00] VITALS: BP 135/84; PULSE 97; RESP 18; O2SAT 97
[2016-07-12] MEDS: LORazepam 2 MG TAB PO PRN ×3 (04:02→09:24)
[2016-07-12 09:18] VITALS: BP 144/97; PULSE 104; PULSE 111; RESP 20; TEMP 97.7; O2SAT 96
[2016-07-12 16:40] VITALS: BP 144/103; PULSE 102; RESP 19; O2SAT 97
[2016-07-12 17:08] VITALS: BP 130/92; PULSE 105; RESP 16; TEMP 98.2; O2SAT 95
[2016-07-12] MEDS ORDERED: QUEtiapine FUMARATE 100 MG TAB PO ONE (21:00)
[2016-07-12 22:07] VITALS: BP 131/80; PULSE 89; RESP 18; O2SAT 99
[2016-07-13 02:00] VITALS: BP 139/90; PULSE 66; RESP 19; O2SAT 99
[2016-07-13 06:35] VITALS: BP 139/70; PULSE 79; RESP 19; O2SAT 98
--- NOTE | 2016-07-13 11:14 | MB ---
cc: CAS MCKENNA MD DATE OF CONSULTATION 07/13/2016 PHYSICIAN REQUESTING CONSULTATION Emergency Department. REASON FOR CONSULTATION As Delgado Act. HISTORY OF PRESENT ILLNESS Mr. Riojas is a 50-year-old male with a history of alcohol use disorder and associated mood disorder who presents under a Delgado Act from [facility] alleging that the patient made statements about wanting to give up on life. The patient's alcohol level on presentation here was 169. Reviewing the electronic medical record, I see that his most recent psychiatric contact within our system was my psychiatric consultation with him from June 15. The patient is seen and examined, chart reviewed, case discussed with nurse in the [facility]. There has been no evidence of any suicidal or homicidal behavior despite fairly extended observation in the psychiatric emergency room. On my examination this morning, the patient does not appear at all depressed. His affect is full and reactive and he laughs and jokes appropriately. He requests discharge from the psychiatric emergency room this morning saying he has to get to work. He says that he is looking forward to starting a new job. He says that the reason that he came in the first place was because he was discharged from the [facility] [place] [facility] because they thought that he had relapsed to drinking. The patient is somewhat variable on the history in this regard saying on the one hand that he had not resumed drinking and on the other hand admitting that he had. His alcohol level would suggest that he has consumed at least some alcohol. The patient notes that he is actively seeking counseling at [facility] and feels that he is safe for discharge from the emergency room today. He denies any suicidal or homicidal ideation. He denies any audiovisual hallucinations. I can elicit no ongoing depressive or hypomanic/manic symptoms. He notes, "I am homeless and I am not getting get any less homeless" by an admission to the inpatient psychiatric unit. He also notes, "I will come back if I am getting unwrapped", by which he means he will return to the psychiatric emergency room in the case of any psychiatric emergency. PAST HISTORY I did obtain patient's past psychiatric, family, chemical dependency, and social history during my consultation on June 15 under Visit #[id number]. I have discussed these findings with the patient and they are materially unchanged today. PAST MEDICAL HISTORY See electronic medical record. REVIEW OF SYSTEMS No reported somatic complaints at this time. PHYSICAL EXAMINATION Vital Signs: Temperature is 98.2, pulse is 79, respirations 19, blood pressure 139/70, pulse oximetry 98% on room air. Physical examination completed by the ED provider. On my examination today, the patient appears to be in no acute physical distress. He is well-nourished and well-developed. No hand tremor, no diaphoresis, no mydriasis or other signs indicative of withdrawal. No signs of intoxication. LABORATORIES REVIEWED CBC is significant for a mild leukocytosis at 12.8. CMP is significant for mild hyponatremia at 132 and mild AST elevation. Toxicology negative. Alcohol level 169. MENTAL STATUS EXAM The patient is in hospital gown. He is well-groomed. He is awake, alert and oriented x 3. No signs of delirium. No motoric abnormalities noted. Speech is within normal limits for rate, tone and volume. Language and fund of knowledge seem adequate and appropriate for age. Mood is fair and affect is full and reactive. Thought process linear. No loosening of associations. No evident delusional material. Denies audiovisual hallucinations. Denies suicidal or homicidal ideation. Insight and judgment are fair. ASSESSMENT AND PLAN Alcohol dependence with alcohol-induced mood disorder, mood disorder now resolved, F10.24. This is a 50-year-old male with psychiatric history as detailed above who presents on a Delgado Act alleging vague statements about not wanting to be around anymore. The patient said these in the context of intoxication. Now that he is clinically sober, he denies any suicidal or homicidal ideation. I can detect no unstable mood, anxiety or psychotic disorder in this patient at this time. The patient does not meet Delgado Act criteria after weighing the acute, chronic, and protective factors. I have encouraged the patient to pursue chemical dependency evaluation and treatment. I have encouraged him to follow up on an outpatient basis for counseling. I have lifted the Delgado Act. The patient is psychiatrically cleared for discharge from the ED. Thank you very much for this consultation. Cas Mckenna DC/TYRON /9:45 AM 10:55 AM TO
== END 2016-07-13 10:56 | disposition home or self-care (01) ==
LOC: NEPA 20:28 → NEPJ 07-13 10:56
DX: F10.24 Alcohol dependence with alcohol-induced mood disorder (principal); Y90.6 Blood alcohol level of 120-199 mg/100 ml; I10 Essential (primary) hypertension; B19.20 Unspecified viral hepatitis C without hepatic coma; Z87.442 Personal history of urinary calculi
CPT/HCPCS: 80053; 80307; 80320; 85025; 99285

== ENCOUNTER 2016-07-16 20:51 | Emergency (ER) | payer OTHER ==
[~2016-07-16] VITALS: Ht 180.3 cm; Wt 81.8 kg
[~2016-07-16 20:51] MED LIST changes: -AMIT1TAB79 PO; +BUPR100T4 PO; -PARO20TA2 PO; -PRAZ1 PO; -PROT40TA PO; -TRAZ50TA12 PO; +VIST50CA PO
[2016-07-16 21:00] VITALS: BP 144/110; PULSE 126; RESP 18; TEMP 98.7; O2SAT 97
[2016-07-16 21:07] VITALS: BP 144/110; PULSE 126; RESP 18; TEMP 98.7; O2SAT 97
[2016-07-16 22:00] LABS: AUTOMATED NEUTROPHIL # 8.3 TH/MM3 (1.8-7.7); BASOPHIL # 0.1 TH/MM3 (0-0.2); BASOPHIL % 0.7 % (0.0-2.0); EOSINOPHIL # 0.3 TH/MM3 (0-0.4); EOSINOPHIL % 2.7 % (0.0-4.0); HEMATOCRIT 53.6 % (39.0-51.0); HEMO FLAGS DIFF FINAL; LYMPH % 22.3 % (9.0-44.0); LYMPHOCYTE # 2.7 TH/MM3 (1.0-4.8); MEAN CELL VOLUME 86.5 FL (80.0-100.0); MEAN CORPUSCULAR HEMOGLOBIN 29.7 PG (27.0-34.0); MEAN CORPUSCULAR HGB CONC 34.4 % (32.0-36.0); MONO % 5.5 % (0.0-8.0); NEUT % 68.8 % (16.0-70.0); PLATELET COUNT 318 TH/MM3 (150-450); RED CELL DISTRIBUTION WIDTH 14.3 % (11.6-17.2)
[2016-07-16 22:09] LABS: ALT (GPT) 53 U/L (12-78); ANION GAP 15 MEQ/L (5-15); AST (GOT) 49 U/L (15-37); BICARBONATE 25.5 MEQ/L (21.0-32.0); BLOOD UREA NITROGEN 11 MG/DL (7-18); CHLORIDE 98 MEQ/L (98-107); GLOMERULAR FILTRATION RATE 95 ML/MIN (>89); POTASSIUM 3.9 MEQ/L (3.5-5.1); SODIUM (NA) 138 MEQ/L (136-145)
[2016-07-16 22:11] LABS: ALKALINE PHOSPHATASE 100 U/L (45-117); TOTAL BILIRUBIN ADULT 0.5 MG/DL (0.2-1.0)
[2016-07-16 22:19] LABS: ACETAMINOPHEN LESS THAN 2.0 MCG/ML (10.0-30.0)
--- NOTE | 2016-07-16 22:22 | PD ---
HPI Chief Complaint: Psychiatric Symptoms Time Seen by Provider: 22:18 Travel History International Travel<30 days: No Contact w/Intl Traveler<30days: No Traveled to known affect area: No History of Present Illness HPI Patient comes under a Delgado act by police for making suicidal statements and alcohol intoxication. Patient admits to having thoughts of harming himself but denies any plans. Patient states he is wanting to get detox and is concerned that he might have alcohol withdrawals. Denies any homicidal ideations. Denies any chest pain, shortness of breath, nausea, vomiting, or fevers. PFSH Past Medical History Blood Disorders: No Bipolar Disorder: Yes Anxiety: Yes (PANIC DISORDERS) Depression: Yes Cancer: No Cardiovascular Problems: Yes (HTN) Chest Pain: Yes Cerebrovascular Accident: Yes Diabetes: No Diminished Hearing: No Endocrine: No Gastrointestinal Disorders: Yes (hep c) GERD: Yes Genitourinary: Yes Hepatitis: Yes (HEP C) Hypertension: Yes Immune Disorder: No Implanted Vascular Access Dvce: No Insomnia: Yes Kidney Stones: Yes Musculoskeletal: No Neurologic: No Psychiatric: Yes (bipolar disorder) Reproductive: No Respiratory: No Integumentary: Yes Immunizations Current: Yes Migraines: Yes Radiation Therapy: No Renal Failure: No Schizophrenia: Yes Seizures: No Ulcer: Yes Past Surgical History Abdominal Surgery: No AICD: No Body Medical Devices: TITANIUM PIECE LEFT CHEEK AREA. Cardiac Surgery: No Ear Surgery: No Endocrine Surgery: No Eye Surgery: No Genitourinary Surgery: No Joint Replacement: No Neurologic Surgery: No Oral Surgery: No Pacemaker: No Thoracic Surgery: No Other Surgery: Yes (FACIAL SURGERY) Social History Alcohol Use: Yes Tobacco Use: No Substance Use: No Allergies-Medications (Allergen,Severity, Reaction): Coded Allergies: Penicillin (Verified Adverse Reaction, Severe, SYNCOPE, 07/16/16) PT DENIES ANY ALLERGY Reported Meds & Prescriptions Reported Meds & Active Scripts Active Quetiapine (Quetiapine Fumarate) 25 Mg Tab 50 Mg PO HS Folate (Folic Acid) 1 Mg Tab 1 Mg PO DAILY Reported Vistaril (Hydroxyzine Pamoate) 50 Mg Cap 50 Mg PO QID PRN Bupropion HCl 100 Mg Tab 150 Mg PO HS Seroquel (Quetiapine Fumarate) 100 Mg Tab 100 Mg PO DAILY Review of Systems ROS Limitations: Intoxication Except as stated in HPI: all other systems reviewed are Neg Physical Exam Exam Limitations: Intoxication Narrative GENERAL: Well-developed, well nourished, in no acute distress, and non-ill appearing. Alcohol noted on breath. SKIN: Warm and dry. HEAD: Atraumatic. Normocephalic. EYES: Pupils equal and round. EOMI. No scleral icterus. No injection or drainage. ENT: No nasal bleeding or discharge. Mucous membranes pink and moist. NECK: Trachea midline. Supple. No nuclear rigidity. CARDIOVASCULAR: Regular rate and rhythm. No murmur appreciated. RESPIRATORY: No accessory muscle use. No respiratory distress. Clear to auscultation. Breath sounds equal bilaterally. MUSCULOSKELETAL: No obvious deformities. No clubbing. No cyanosis. No edema. Full range of motion. NEUROLOGICAL: Awake and alert. No obvious cranial nerve deficits. Motor grossly within normal limits. Normal speech. PSYCHIATRIC: Appropriate mood and affect. Data Data Last Documented VS Vital Signs Date Time Temp Pulse Resp B/P Pulse Ox O2 Delivery O2 Flow Rate FiO2 07/16/16 21:07 98.7 126 18 144/110 97 Room Air Orders Complete Blood Count With Diff (07/16/16 21:27) Comprehensive Metabolic Panel (07/16/16 21:27) Psych Screen (07/16/16 21:27) Drug Screen, Random Urine (07/16/16 21:27) Alcohol (Ethanol) (07/16/16 21:27) Tylenol (Acetaminophen) (07/16/16 21:27) Salicylates (Aspirin) (07/16/16 21:27) Labs Laboratory Tests Test 07/16/16 21:43 White Blood Count 12.0 TH/MM3 Red Blood Count 6.20 MIL/MM3 Hemoglobin 18.4 GM/DL Hematocrit 53.6 % Mean Corpuscular Volume 86.5 FL Mean Corpuscular Hemoglobin 29.7 PG Mean Corpuscular Hemoglobin 34.4 % Concent Red Cell Distribution Width 14.3 % Platelet Count 318 TH/MM3 Mean Platelet Volume 7.3 FL Neutrophils (%) (Auto) 68.8 % Lymphocytes (%) (Auto) 22.3 % Monocytes (%) (Auto) 5.5 % Eosinophils (%) (Auto) 2.7 % Basophils (%) (Auto) 0.7 % Neutrophils # (Auto) 8.3 TH/MM3 Lymphocytes # (Auto) 2.7 TH/MM3 Monocytes # (Auto) 0.7 TH/MM3 Eosinophils # (Auto) 0.3 TH/MM3 Basophils # (Auto) 0.1 TH/MM3 CBC Comment DIFF FINAL Differential Comment Sodium Level 138 MEQ/L Potassium Level 3.9 MEQ/L Chloride Level 98 MEQ/L Carbon Dioxide Level 25.5 MEQ/L Anion Gap 15 MEQ/L Blood Urea Nitrogen 11 MG/DL Creatinine 0.86 MG/DL Estimat Glomerular Filtration 95 ML/MIN Rate Random Glucose 102 MG/DL Calcium Level 8.6 MG/DL Total Bilirubin 0.5 MG/DL Aspartate Amino Transf 49 U/L (AST/SGOT) Alanine Aminotransferase 53 U/L (ALT/SGPT) Alkaline Phosphatase 100 U/L Total Protein 8.9 GM/DL Albumin 4.3 GM/DL Salicylates Level LESS THAN 1.7 MG/DL MDM Medical Decision Making Medical Screen Exam Complete: Yes Emergency Medical Condition: Yes Differential Diagnosis Homicidal, suicidal, intoxication, alcohol dependence, drug-induced mood disorder, other Narrative Course Patient was seen and examined. Labs were obtained and reviewed. Patient medically cleared for further treatment and evaluation by psych. Final disposition per psych. Diagnosis Primary Impression: Alcohol dependence Qualified Code: F10.29 - Alcohol dependence with unspecified alcohol-induced disorder Additional Impression: Suicidal ideations Condition: Stable Leon Richmond Jul 16, 2016 22:22
[2016-07-16] MEDS ORDERED: LORazepam 2 MG/ML VIAL IV PUSH PRN ×4 (22:30)
[2016-07-16] MEDS ORDERED: FLUMAZENIL 0.5 MG/5 ML VIAL IV PUSH PRN (22:30)
[2016-07-16] MEDS ORDERED: LORazepam 1 MG TAB PO PRN (22:30)
[2016-07-16] MEDS ORDERED: LORazepam 2 MG TAB PO PRN (22:30)
[2016-07-16 22:40] LABS: AMPHETAMINE, URINE NEG (NEG); BARBITURATES, URINE NEG (NEG); COCAINE, URINE NEG (NEG)
[2016-07-16 23:39] VITALS: BP 132/87; PULSE 113; RESP 18; O2SAT 96
[2016-07-17 02:09] VITALS: BP 117/55; PULSE 64; RESP 18; O2SAT 97
== END 2016-07-17 03:36 ==
LOC: NEDAMB 20:51 → NEPJ 07-17 03:36
DX: F10.20 Alcohol dependence, uncomplicated (principal); R45.851 Suicidal ideations; I10 Essential (primary) hypertension; B19.20 Unspecified viral hepatitis C without hepatic coma; Z87.442 Personal history of urinary calculi; F31.9 Bipolar disorder, unspecified
CPT/HCPCS: 80053; 80307; 80320; 85025; 96374; 99285; J2060; 80329; G0480

== ENCOUNTER 2016-07-20 14:09 | Emergency (ER) | payer SELFPAY ==
[~2016-07-20] VITALS: Ht 180.3 cm; Wt 80.0 kg
[2016-07-20 14:10] VITALS: BP 170/111; PULSE 93; RESP 14; TEMP 98.2; O2SAT 96
[2016-07-20] MEDS ORDERED: PERM5CRE TOPICAL (14:58)
[2016-07-20] MEDS ORDERED: PRED20 PO (14:58)
[2016-07-20] MEDS ORDERED: predniSONE 20 MG TAB PO ONE (15:00)
[2016-07-20] MEDS ORDERED: diphenhydrAMINE HCL 25 MG CAP PO ONE (15:00)
--- NOTE | 2016-07-20 15:04 | PD ---
HPI Chief Complaint: Skin Problem Time Seen by Provider: 14:51 Travel History International Travel<30 days: No Contact w/Intl Traveler<30days: No Traveled to known affect area: No History of Present Illness HPI 50-year-old male presents to the emergency department for evaluation of a rash for 2 days. Patient states he was recently discharged from [facility]. [facility] [place] [facility] and is new to him. He is using new detergents or lotions. He states the rash is itchy. He did take Benadryl times one without improvement. He denies any fevers. No shortness of breath or wheezing. No angioedema or difficulty swallowing. Patient does report history scabies and states similar symptoms. He denies any other complaints at this time. PFSH Past Medical History Blood Disorders: No Bipolar Disorder: Yes Anxiety: Yes (PANIC DISORDERS) Depression: Yes Cancer: No Cardiovascular Problems: Yes (HTN) Chest Pain: Yes Cerebrovascular Accident: Yes Diabetes: No Diminished Hearing: No Endocrine: No Gastrointestinal Disorders: Yes (hep c) GERD: Yes Genitourinary: Yes Hepatitis: Yes (HEP C) Hypertension: Yes Immune Disorder: No Implanted Vascular Access Dvce: No Insomnia: Yes Kidney Stones: Yes Musculoskeletal: No Neurologic: No Psychiatric: Yes (bipolar disorder) Reproductive: No Respiratory: No Integumentary: Yes Immunizations Current: Yes Migraines: Yes Radiation Therapy: No Renal Failure: No Schizophrenia: Yes Seizures: No Ulcer: Yes Tetanus Vaccination: < 5 Years Past Surgical History Abdominal Surgery: No AICD: No Body Medical Devices: TITANIUM PIECE LEFT CHEEK AREA. Cardiac Surgery: No Ear Surgery: No Endocrine Surgery: No Eye Surgery: No Genitourinary Surgery: No Joint Replacement: No Neurologic Surgery: No Oral Surgery: No Pacemaker: No Thoracic Surgery: No Other Surgery: Yes (FACIAL SURGERY) Social History Alcohol Use: Yes Tobacco Use: No Substance Use: No Allergies-Medications (Allergen,Severity, Reaction): Coded Allergies: Penicillin (Verified Adverse Reaction, Severe, SYNCOPE, 07/20/16) PT DENIES ANY ALLERGY Reported Meds & Prescriptions Reported Meds & Active Scripts Active Quetiapine (Quetiapine Fumarate) 25 Mg Tab 50 Mg PO HS Folate (Folic Acid) 1 Mg Tab 1 Mg PO DAILY Reported Vistaril (Hydroxyzine Pamoate) 50 Mg Cap 50 Mg PO QID PRN Bupropion HCl 100 Mg Tab 150 Mg PO HS Seroquel (Quetiapine Fumarate) 100 Mg Tab 100 Mg PO DAILY Review of Systems Except as stated in HPI: all other systems reviewed are Neg Physical Exam Narrative GENERAL: Well-developed well-nourished male patient, ambulatory. Afebrile. SKIN: Warm and dry. Patient has erythematous papules to the bilateral upper extremities and back. He does have some small papules between the digits of the left hand. This is consistent with either contact dermatitis or possible scabies. HEAD: Normocephalic. Atraumatic. EYES: No scleral icterus. No injection or drainage. NECK: Supple, trachea midline. No JVD or lymphadenopathy. CARDIOVASCULAR: Regular rate and rhythm without murmurs, gallops, or rubs. RESPIRATORY: Breath sounds equal bilaterally. No accessory muscle use. Lungs sounds are clear to auscultation. GASTROINTESTINAL: Abdomen soft, non-tender, nondistended. MUSCULOSKELETAL: No cyanosis, or edema. BACK: Nontender without obvious deformity. No CVA tenderness. Data Data Last Documented VS Vital Signs Date Time Temp Pulse Resp B/P Pulse Ox O2 Delivery O2 Flow Rate FiO2 07/20/16 14:10 98.2 93 14 170/111 96 Room Air Orders Diphenhydramine (Benadryl) (07/20/16 15:00) Prednisone (Deltasone) (07/20/16 15:00) MDM Medical Decision Making Medical Screen Exam Complete: Yes Emergency Medical Condition: Yes Medical Record Reviewed: Yes Differential Diagnosis Contact dermatitis versus scabies versus allergic reaction Narrative Course 50-year-old male presents to the emergency department for evaluation of an itchy rash that started 2 days ago. Physical exam is consistent with a contact dermatitis or scabies. Patient is given prednisone 40 mg by mouth and Benadryl 25 mg by mouth in the emergency department. He'll be discharged with a short- term prescription for prednisone and permethrin cream. He is instructed to follow-up with primary care physician. He is to return for any acute worsening of symptoms. Patient is agreeable. Diagnosis Primary Impression: Rash Referrals: Primary Care Physician call for appointment Patient Instructions: Acute Rash (ED), General Instructions Additional Instructions: Take prednisone as directed. Start this tomorrow. Take [id number] Benadryl 25-50 mg every 6-8 hours as needed for itching. Use permethrin cream as directed. Use permethrin cream as instructed. Thoroughly massage cream (30 g for average adult) from head to soles of feet; leave on for 8 to 14 hours before removing (shower or bath) Follow-up with your primary care physician. Return to the emergency department for any acute worsening of symptoms. Med/Other Pt SpecificInfo: Prescription(s) given Scripts Permethrin Topical 5% Cream1 Applic TOPICAL ONCE #1 TUBE Ref 0 Prov:Laura Pineda 07/20/16 Prednisone 20 Mg Tab40 Mg PO DAILY 4 Days Ref 0 Prov:Laura Pineda 07/20/16 Disposition: 01 DISCHARGE HOME Condition: Stable Laura Pineda Jul 20, 2016 15:04
== END 2016-07-20 15:15 | disposition home or self-care (01) ==
LOC: NEPB 14:09
DX: R21 Rash and other nonspecific skin eruption (principal); I10 Essential (primary) hypertension
CPT/HCPCS: 99282; J7512

== ENCOUNTER 2016-07-23 18:44 | Emergency (ER) | payer SELFPAY ==
[~2016-07-23] VITALS: Ht 180.3 cm; Wt 80.0 kg
[~2016-07-23 18:44] MED LIST changes: +PERM5CRE TOPICAL; +PRED20 PO
[2016-07-23] MEDS ORDERED: hydrOXYzine HCL 50 MG TAB PO ONE (21:15)
--- NOTE | 2016-07-23 22:41 | PD ---
HPI . Rash Chief Complaint: Delgado Act Time Seen by Provider: 20:35 Travel History International Travel<30 days: No Contact w/Intl Traveler<30days: No History of Present Illness HPI Patient is brought in under the Delgado Act for suicidal ideation. The patient's only complaint to me was that he had appeared rash. However, he has papers from the patrol police sergeant that he has suicidal thoughts. He would swim out into the ocean and drown or step in front of traffic. PFSH Past Medical History Blood Disorders: No Bipolar Disorder: Yes Anxiety: Yes (PANIC DISORDERS) Depression: Yes Cancer: No Cardiovascular Problems: Yes (HTN) Chest Pain: Yes Cerebrovascular Accident: Yes Diabetes: No Diminished Hearing: No Endocrine: No Gastrointestinal Disorders: Yes (hep c) GERD: Yes Genitourinary: Yes Hepatitis: Yes (HEP C) Hypertension: Yes Immune Disorder: No Implanted Vascular Access Dvce: No Insomnia: Yes Kidney Stones: Yes Musculoskeletal: No Neurologic: No Psychiatric: Yes (bipolar disorder) Reproductive: No Respiratory: No Integumentary: Yes Immunizations Current: Yes Migraines: Yes Radiation Therapy: No Renal Failure: No Schizophrenia: Yes Seizures: No Ulcer: Yes Past Surgical History Abdominal Surgery: No AICD: No Body Medical Devices: TITANIUM PIECE LEFT CHEEK AREA. Cardiac Surgery: No Ear Surgery: No Endocrine Surgery: No Eye Surgery: No Genitourinary Surgery: No Joint Replacement: No Neurologic Surgery: No Oral Surgery: No Pacemaker: No Thoracic Surgery: No Other Surgery: Yes (FACIAL SURGERY) Social History Alcohol Use: Yes Tobacco Use: No Substance Use: No Allergies-Medications (Allergen,Severity, Reaction): Coded Allergies: Penicillin (Verified Adverse Reaction, Severe, SYNCOPE, 07/20/16) PT DENIES ANY ALLERGY Reported Meds & Prescriptions Reported Meds & Active Scripts Active Permethrin Topical (Permethrin) 5% Cream 1 Applic TOPICAL ONCE Prednisone 20 Mg Tab 40 Mg PO DAILY 4 Days Quetiapine (Quetiapine Fumarate) 25 Mg Tab 50 Mg PO HS Folate (Folic Acid) 1 Mg Tab 1 Mg PO DAILY Reported Vistaril (Hydroxyzine Pamoate) 50 Mg Cap 50 Mg PO QID PRN Bupropion HCl 100 Mg Tab 150 Mg PO HS Seroquel (Quetiapine Fumarate) 100 Mg Tab 100 Mg PO DAILY Review of Systems Except as stated in HPI: all other systems reviewed are Neg Skin: Positive Rash, Positive Itching Psychiatric: Positive: Suicidal Ideations Physical Exam Narrative GENERAL: Disheveled man who is in no acute distress. SKIN: Warm and dry. He has a diffuse, urticarial appearing rash. HEAD: Atraumatic. Normocephalic. EYES: Pupils equal and round. ENT: No nasal bleeding or discharge. Mucous membranes pink and moist. NECK: Trachea midline. CARDIOVASCULAR: Regular rate and rhythm. RESPIRATORY: No accessory muscle use. GASTROINTESTINAL: Abdomen soft, non-tender, nondistended. MUSCULOSKELETAL: No obvious deformities. No edema. NEUROLOGICAL: Awake and alert. No obvious cranial nerve deficits. Motor grossly within normal limits. Normal speech. PSYCHIATRIC: Patient reported suicidal ideation to the patrol police sergeant. Data Data Orders Complete Blood Count With Diff (07/23/16 21:09) Comprehensive Metabolic Panel (07/23/16 21:09) Psych Screen (07/23/16 21:09) Drug Screen, Random Urine (07/23/16 21:09) Alcohol (Ethanol) (07/23/16 21:09) Hydroxyzine Hcl (Atarax) (07/23/16 21:15) MDM Medical Decision Making Medical Screen Exam Complete: Yes Emergency Medical Condition: Yes Differential Diagnosis The differential diagnosis of the skin rash includes but is not limited to allergic urticaria, scabies, insect bites, contact dermatitis Narrative Course Patient presents under the Delgado Act with a chief complaint to me of a pruritic rash. I have given him Vistaril for the rash. He is medically clear for psychiatric evaluation. Diagnosis Primary Impression: Suicidal ideations Additional Impression: Rash Condition: Stable Carol Ann Muñiz MD Jul 23, 2016 22:41
[2016-07-23 22:56] VITALS: BP 120/70; PULSE 82; RESP 18; TEMP 98.1; O2SAT 99
[2016-07-23] MEDS ORDERED: hydrOXYzine HCL 25 MG TAB PO ONE (23:00)
[2016-07-24 04:59] LABS: BASOPHIL # 0.1 TH/MM3 (0-0.2); BASOPHIL % 0.9 % (0.0-2.0); EOSINOPHIL # 1.1 TH/MM3 (0-0.4); EOSINOPHIL % 9.8 % (0.0-4.0); HEMATOCRIT 41.9 % (39.0-51.0); HEMO FLAGS DIFF FINAL; LYMPHOCYTE # 2.5 TH/MM3 (1.0-4.8); MEAN CELL VOLUME 88.7 FL (80.0-100.0); MEAN CORPUSCULAR HGB CONC 33.9 % (32.0-36.0); NEUT % 59.3 % (16.0-70.0); PLATELET COUNT 251 TH/MM3 (150-450); RED BLOOD COUNT 4.73 MIL/MM3 (4.50-5.90); RED CELL DISTRIBUTION WIDTH 14.4 % (11.6-17.2); WHITE BLOOD COUNT 11.8 TH/MM3 (4.0-11.0)
[2016-07-24 05:11] LABS: ANION GAP 13 MEQ/L (5-15)
[2016-07-24 05:14] LABS: ALKALINE PHOSPHATASE 73 U/L (45-117); ALT (GPT) 56 U/L (12-78); AST (GOT) 48 U/L (15-37); BICARBONATE 27.9 MEQ/L (21.0-32.0); BLOOD UREA NITROGEN 9 MG/DL (7-18); CHLORIDE 97 MEQ/L (98-107); GLOMERULAR FILTRATION RATE 96 ML/MIN (>89); SODIUM (NA) 138 MEQ/L (136-145); TOTAL BILIRUBIN ADULT 0.5 MG/DL (0.2-1.0)
[2016-07-24 05:17] VITALS: BP 138/81; PULSE 85; RESP 18; TEMP 98.3; O2SAT 97
[2016-07-24] MEDS ORDERED: POTASSIUM CHLORIDE 10 MEQ CONTROLLED RELEASE TAB PO ONE (06:00)
[2016-07-24] MEDS: hydrOXYzine HCL 50 MG TAB PO PRN ×2 (08:52→18:36)
[2016-07-24] MEDS ORDERED: chlordiazePOXIDE 25 MG CAP PO PRN (09:00)
[2016-07-24 11:35] VITALS: BP 138/87; PULSE 86; RESP 18
[2016-07-24 14:20] VITALS: BP 134/95; PULSE 98; RESP 20; O2SAT 98
[2016-07-24] MEDS ORDERED: PERMETHRIN 5% CREAM 60 GM TOPICAL ONE (18:30)
[2016-07-24 22:27] VITALS: BP 128/74; PULSE 78; RESP 18; O2SAT 97
[2016-07-25 02:17] VITALS: BP 134/74; PULSE 67; RESP 18; TEMP 97.7; O2SAT 98
[2016-07-25 04:43] LABS: AMPHETAMINE, URINE NEG (NEG); BARBITURATES, URINE NEG (NEG); COCAINE, URINE POS (NEG)
[2016-07-25 06:06] VITALS: BP 134/76; PULSE 77; RESP 18; TEMP 97.5; O2SAT 97
[2016-07-25] MEDS: hydrOXYzine HCL 50 MG TAB PO PRN ×2 (06:20→14:12)
[2016-07-25 10:25] VITALS: BP 121/74; PULSE 79; RESP 18; O2SAT 96
[2016-07-25] MEDS ORDERED: PILL SPLITTER OTHER PRN (14:00)
[2016-07-25 14:05] VITALS: BP 128/67; PULSE 89; RESP 18
--- NOTE | 2016-07-25 15:59 | PD ---
History of Present Illness Chief Complaint: Psychiatric Symptoms Time Seen by Provider: 15:45 Travel History International Travel<30 Days: No Contact w/Intl Traveler<30days: No Known affected area: No Legal Status Legal Status: Delgado Act Delgado Act Signed By: Audrey Alanis History of Present Illness: History of Present Illness HPI Patient is a 50 year old male with history of alcohol and other substance abuse who is brought in under the Delgado Act for suicidal ideation. As per records the patient presents and reports he has thoughts of wanting to jump in front of traffic or he would swim in the ocean. Patient presents with BAL of 92 as well as positive screen for cocaine and benzos.He was monitored in [facility] and he presented no behavioral concerns and no suicidality. He was placed on [facility] list as well. He was previously seen on Jul 16 and was sent to [facility] for detox. he is not happy with the treatment he received as well as not being happy with his sober living house, [facility] by the [facility]. It seem he had a relapse and is here awaiting to be able to go back there but needs to produce a " clean urine". Patient is alert, oriented, calm and cooperative. He is clinically sober with no tremors, no impairment in his gait. There is no indication that he is experiencing any psychosis. No significant depressive or anxious symptom. There is no suicidal or homicidal ideation, intent or plan . He is requesting discharge at this time as he is ready to go back to [facility] by the [facility]. PFSH Past Medical History Blood Disorders: No Bipolar Disorder: Yes Anxiety: Yes (PANIC DISORDERS) Depression: Yes Cancer: No Cardiovascular Problems: Yes (HTN) Chest Pain: Yes Cerebrovascular Accident: Yes Diabetes: No Diminished Hearing: No Endocrine: No Gastrointestinal Disorders: Yes (hep c) GERD: Yes Genitourinary: Yes Hepatitis: Yes (HEP C) Hypertension: Yes Immune Disorder: No Implanted Vascular Access Dvce: No Insomnia: Yes Kidney Stones: Yes Musculoskeletal: No Neurologic: No Psychiatric: Yes (bipolar disorder) Reproductive: No Respiratory: No Integumentary: Yes Immunizations Current: Yes Migraines: Yes Radiation Therapy: No Renal Failure: No Schizophrenia: Yes Seizures: No Ulcer: Yes ?: Not Past Surgical History Abdominal Surgery: No AICD: No Body Medical Devices: TITANIUM PIECE LEFT CHEEK AREA. Cardiac Surgery: No Ear Surgery: No Endocrine Surgery: No Eye Surgery: No Genitourinary Surgery: No Joint Replacement: No Neurologic Surgery: No Oral Surgery: No Pacemaker: No Thoracic Surgery: No Other Surgery: Yes (FACIAL SURGERY) Psychiatric History Psychiatric History Hx Psychiatric Treatment: Patient has an extensive history with [facility] for substance use. History of Inpatient Treatment: Yes Guns or firearms in home: No Social History Single male. [facility] [place] Hx Alcohol Use: Yes (daily) Hx Tobacco Use: No Hx Substance Use: Yes (ALCOHOL ABUSE (CHRONIC)) Substance Use Type: Alcohol, Crack, Cocaine Other Substances Used: ADMITS TO DRINKING BEER DAILY AND USING COCAINE Hx of Substance Use Treatment: Yes Family Psychiatric History unknown Allergies-Medications (Allergen,Severity, Reaction): Coded Allergies: Penicillin (Verified Adverse Reaction, Severe, SYNCOPE, 07/20/16) PT DENIES ANY ALLERGY Reported Meds & Prescriptions Reported Meds & Active Scripts Active Permethrin Topical (Permethrin) 5% Cream 1 Applic TOPICAL ONCE Folate (Folic Acid) 1 Mg Tab 1 Mg PO DAILY Reported Vistaril (Hydroxyzine Pamoate) 50 Mg Cap 50 Mg PO QID PRN Bupropion HCl 100 Mg Tab 150 Mg PO HS Seroquel (Quetiapine Fumarate) 100 Mg Tab 100 Mg PO DAILY Review of Systems Constitutional: DENIES: Diaphoretic episodes, Fatigue, Fever, Weight gain, Weight loss, Chills, Dizziness, Change in appetite, Night Sweats Integumentary: COMPLAINS OF: Rash (on back ), DENIES: Abnormal pigmentation, Nail changes, Pruritus Exam Alert: Yes Kirvin: Person (ox4) Mood: Calm Affect: Euthymic Speech: Clear, Logical Eye Contact: Normal Memory Intact: Comment (no impairment) Hallucinations: Other (negative) Delusions: No Suicidal: Ideation (deneis any) Homicidal: Ideation (deneis any) Insight/Judgement poor. poor MDM Medical Decision Making Medical Record Reviewed: Yes Assessment/Plan 50 year old male w hx of alcohol and substance use who presents under a BA. Patient after he jessie up denies any suicidal or homicidal ideation and is requesting discharge as he does not feel that [facility] will be of help to him. Appears to be malingering for usp when he presented a dirty urine at [facility] [place] [facility] and discharge at this time as he does not meet criteria. Orders Permethrin 5% Cream (Elimite 5% Cream) (07/24/16 18:30) Diet Regular Basic (07/25/16 Breakfast) Diet Regular Basic (07/25/16 Lunch) Diet Regular Basic (07/25/16 Dinner) Pill Splitter (Pill Splitter) (07/25/16 14:00) Results Vital Signs Date Time Temp Pulse Resp B/P Pulse Ox O2 Delivery O2 Flow Rate FiO2 07/25/16 14:05 89 18 128/67 Room Air 07/25/16 10:25 79 18 121/74 96 Room Air 07/25/16 06:06 97.5 77 18 134/76 97 Room Air 07/25/16 02:17 97.7 67 18 134/74 98 Room Air 07/24/16 22:27 78 18 128/74 97 Laboratory Tests Test 07/25/16 04:15 Urine Opiates Screen NEG Urine Barbiturates Screen NEG Urine Amphetamines Screen NEG Urine Benzodiazepines Screen POS Urine Cocaine Screen POS Urine Cannabinoids Screen NEG Diagnosis Primary Impression: Rash Additional Impressions: Alcohol abuse with alcohol-induced mood disorder Drug-induced mood disorder Antisocial personality disorder in adult Ruled Out: Suicidal ideations Psychiatrically Cleared: Yes Referrals: [facility] (Out patient) call for appointment Departure Forms: Tests/Procedures Patient Instructions: General Instructions, Abuse of Alcohol (ED) Med/ Other Pt Specific Info: No Change to Meds Disposition: 01 DISCHARGE HOME Condition: Stable Problem Qualifiers Venita Fowler Jul 25, 2016 15:59
== END 2016-07-25 16:56 | disposition home or self-care (01) ==
LOC: NEPC 18:44 → NEPJ 07-25 16:56
DX: R21 Rash and other nonspecific skin eruption (principal); F10.14 Alcohol abuse with alcohol-induced mood disorder; F19.94 Other psychoactive substance use, unspecified with psychoactive substance-induced mood disorder; F60.2 Antisocial personality disorder; I10 Essential (primary) hypertension; Z86.59 Personal history of other mental and behavioral disorders; Z86.79 Personal history of other diseases of the circulatory system; Z86.73 Personal history of transient ischemic attack (TIA), and cerebral infarction without residual deficits; Z87.19 Personal history of other diseases of the digestive system; Z86.19 Personal history of other infectious and parasitic diseases; Z87.448 Personal history of other diseases of urinary system; Z87.2 Personal history of diseases of the skin and subcutaneous tissue; Z86.69 Personal history of other diseases of the nervous system and sense organs
CPT/HCPCS: 80053; 80307; 80320; 85025; 99285

== ENCOUNTER 2016-07-28 16:17 | Emergency (ER) | payer SELFPAY ==
[~2016-07-28] VITALS: Ht 180.3 cm; Wt 75.0 kg
[~2016-07-28 16:17] MED LIST changes: -PRED20 PO; -QUET1TAB7 PO
[2016-07-28 16:28] VITALS: BP 145/62; PULSE 82; RESP 20; TEMP 98.6; O2SAT 99
[2016-07-28 16:43] VITALS: BP 120/80; PULSE 94; RESP 18; TEMP 98.4; O2SAT 97
[2016-07-28 16:59] LABS: AUTOMATED NEUTROPHIL # 4.4 TH/MM3 (1.8-7.7); BASOPHIL # 0.1 TH/MM3 (0-0.2); BASOPHIL % 0.9 % (0.0-2.0); EOSINOPHIL # 0.5 TH/MM3 (0-0.4); EOSINOPHIL % 6.4 % (0.0-4.0); HEMATOCRIT 39.8 % (39.0-51.0); HEMO FLAGS DIFF FINAL; LYMPH % 24.9 % (9.0-44.0); LYMPHOCYTE # 1.9 TH/MM3 (1.0-4.8); MEAN CELL VOLUME 87.6 FL (80.0-100.0); MEAN CORPUSCULAR HEMOGLOBIN 30.9 PG (27.0-34.0); MEAN CORPUSCULAR HGB CONC 35.2 % (32.0-36.0); MONO % 9.9 % (0.0-8.0); NEUT % 57.9 % (16.0-70.0); PLATELET COUNT 234 TH/MM3 (150-450); RED BLOOD COUNT 4.54 MIL/MM3 (4.50-5.90); RED CELL DISTRIBUTION WIDTH 14.5 % (11.6-17.2); WHITE BLOOD COUNT 7.6 TH/MM3 (4.0-11.0)
[2016-07-28 17:10] LABS: AMPHETAMINE, URINE NEG (NEG); BARBITURATES, URINE NEG (NEG); COCAINE, URINE NEG (NEG)
[2016-07-28 17:19] LABS: BICARBONATE 26.8 MEQ/L (21.0-32.0); POTASSIUM 3.3 MEQ/L (3.5-5.1)
[2016-07-28] MEDS ORDERED: LORazepam 0.5 MG TAB PO ONE (17:45)
--- NOTE | 2016-07-28 17:51 | PD ---
HPI Chief Complaint: Psychiatric Symptoms Time Seen by Provider: 16:19 Travel History International Travel<30 days: No Contact w/Intl Traveler<30days: No Traveled to known affect area: No History of Present Illness HPI 50 y/o male presents with wanting to talk with our psychiatry team as he is depressed and has thoughts intermittently of hurting himself. He denies other specific complaints other than feeling like he's gonna withdrawal off alcohol. He is been here multiple times for similar visits. He presents by ambulance. PFSH Past Medical History Blood Disorders: No Bipolar Disorder: Yes Anxiety: Yes (PANIC DISORDERS) Depression: Yes Cancer: No Cardiovascular Problems: Yes (HTN) Chest Pain: Yes Cerebrovascular Accident: Yes Diabetes: No Diminished Hearing: No Endocrine: No Gastrointestinal Disorders: Yes (hep c) GERD: Yes Genitourinary: Yes Hepatitis: Yes (HEP C) Hypertension: Yes Immune Disorder: No Implanted Vascular Access Dvce: No Insomnia: Yes Kidney Stones: Yes Musculoskeletal: No Neurologic: No Psychiatric: Yes (bipolar disorder) Reproductive: No Respiratory: No Integumentary: Yes Immunizations Current: Yes Migraines: Yes Radiation Therapy: No Renal Failure: No Schizophrenia: Yes Seizures: No Ulcer: Yes Tetanus Vaccination: < 5 Years Past Surgical History Abdominal Surgery: No AICD: No Body Medical Devices: TITANIUM PIECE LEFT CHEEK AREA. Cardiac Surgery: No Ear Surgery: No Endocrine Surgery: No Eye Surgery: No Genitourinary Surgery: No Joint Replacement: No Neurologic Surgery: No Oral Surgery: No Pacemaker: No Thoracic Surgery: No Other Surgery: Yes (FACIAL SURGERY) Social History Alcohol Use: Yes (daily) Tobacco Use: No Substance Use: Yes (ALCOHOL ABUSE (CHRONIC)) Allergies-Medications (Allergen,Severity, Reaction): Coded Allergies: Penicillin (Verified Adverse Reaction, Severe, SYNCOPE, 07/28/16) PT DENIES ANY ALLERGY Reported Meds & Prescriptions Reported Meds & Active Scripts Active Permethrin Topical (Permethrin) 5% Cream 1 Applic TOPICAL ONCE Reported Bupropion HCl 100 Mg Tab 150 Mg PO HS Seroquel (Quetiapine Fumarate) 100 Mg Tab 100 Mg PO DAILY Review of Systems Except as stated in HPI: all other systems reviewed are Neg Physical Exam Narrative GENERAL: Well-nourished, well-developed patient. SKIN: Warm and dry. HEAD: Normocephalic and atraumatic. EYES: No injection or drainage. ENT: No nasal drainage noted. NECK: Supple, trachea midline. CARDIOVASCULAR: Regular rate and rhythm RESPIRATORY: No increased effort. No accessory muscle use. NEUROLOGICAL: Awake and alert. Motor and sensory grossly within normal limits. Normal speech. Data Data Last Documented VS Vital Signs Date Time Temp Pulse Resp B/P Pulse Ox O2 Delivery O2 Flow Rate FiO2 07/28/16 16:43 98.4 94 18 120/80 97 Orders Complete Blood Count With Diff (07/28/16 16:38) Basic Metabolic Panel (Bmp) (07/28/16 16:38) Psych Screen (07/28/16 16:38) Drug Screen, Random Urine (07/28/16 16:38) Alcohol (Ethanol) (07/28/16 16:38) Lorazepam (Ativan) (07/28/16 17:45) Labs Laboratory Tests Test 07/28/16 07/28/16 16:07 16:47 White Blood Count 7.6 TH/MM3 Red Blood Count 4.54 MIL/MM3 Hemoglobin 14.0 GM/DL Hematocrit 39.8 % Mean Corpuscular Volume 87.6 FL Mean Corpuscular Hemoglobin 30.9 PG Mean Corpuscular Hemoglobin 35.2 % Concent Red Cell Distribution Width 14.5 % Platelet Count 234 TH/MM3 Mean Platelet Volume 7.0 FL Neutrophils (%) (Auto) 57.9 % Lymphocytes (%) (Auto) 24.9 % Monocytes (%) (Auto) 9.9 % Eosinophils (%) (Auto) 6.4 % Basophils (%) (Auto) 0.9 % Neutrophils # (Auto) 4.4 TH/MM3 Lymphocytes # (Auto) 1.9 TH/MM3 Monocytes # (Auto) 0.8 TH/MM3 Eosinophils # (Auto) 0.5 TH/MM3 Basophils # (Auto) 0.1 TH/MM3 CBC Comment DIFF FINAL Differential Comment Sodium Level 136 MEQ/L Potassium Level 3.3 MEQ/L Chloride Level 99 MEQ/L Carbon Dioxide Level 26.8 MEQ/L Anion Gap 10 MEQ/L Blood Urea Nitrogen 6 MG/DL Creatinine 0.78 MG/DL Estimat Glomerular Filtration 106 ML/MIN Rate Random Glucose 99 MG/DL Calcium Level 8.2 MG/DL Ethyl Alcohol Level 65 MG/DL Urine Opiates Screen NEG Urine Barbiturates Screen NEG Urine Amphetamines Screen NEG Urine Benzodiazepines Screen NEG Urine Cocaine Screen NEG Urine Cannabinoids Screen NEG MDM Medical Decision Making Medical Screen Exam Complete: Yes Emergency Medical Condition: Yes Medical Record Reviewed: Yes (past history confirm, multiple visits for similar ) Interpretation(s) CBC & BMP Diagram 07/28/16 16:07 Differential Diagnosis Alcohol withdrawal, depression, malingering Narrative Course Will check blood work for medical clearance and dose with Ativan to prevent withdrawal 1750 medically cleared for psychiatric disposition,Mental health screening discussed with the patient. Psychiatric screen ordered. Aisha Hawk MD Jul 28, 2016 17:51
[2016-07-28 22:09] VITALS: BP 106/68; PULSE 94; RESP 18; O2SAT 97
[2016-07-29 02:07] VITALS: BP 153/90; PULSE 85; RESP 16; O2SAT 97
[2016-07-29 06:00] VITALS: BP 135/86; PULSE 87; RESP 18; O2SAT 96
[2016-07-29 10:18] VITALS: BP 139/90; PULSE 84; RESP 18; O2SAT 95
[2016-07-29 11:21] VITALS: BP 139/90; PULSE 84; RESP 18; O2SAT 95
--- NOTE | 2016-07-29 22:16 | EKG ---
Date Performed: 07/28/2016 Time Performed: 20:50:51 PTAGE: 50 years EKG: Sinus rhythm NORMAL ECG NO PREVIOUS TRACING Compared to prior tracing no significant change DOCTOR: Whitley Cifuentes Interpretating Date/Time 07/29/2016 22:15:06
== END 2016-07-29 13:21 | disposition home or self-care (01) ==
LOC: NEPC 16:17 → NEPJ 07-29 13:21
DX: R45.851 Suicidal ideations (principal); F10.239 Alcohol dependence with withdrawal, unspecified; I10 Essential (primary) hypertension; B19.20 Unspecified viral hepatitis C without hepatic coma; K21.9 Gastro-esophageal reflux disease without esophagitis; Z86.73 Personal history of transient ischemic attack (TIA), and cerebral infarction without residual deficits; Z87.442 Personal history of urinary calculi
CPT/HCPCS: 80048; 80307; 80320; 85025; 93005; 99285

== ENCOUNTER 2016-08-23 23:23 | Emergency (ER) | payer SELFPAY ==
[~2016-08-23] VITALS: Ht 182.9 cm; Wt 75.0 kg
[~2016-08-23 23:23] MED LIST changes: -FOLI1TAB4 PO; -VIST50CA PO
[2016-08-23 23:35] VITALS: BP 141/110; PULSE 112; RESP 18; TEMP 98.8; O2SAT 96
--- NOTE | 2016-08-23 23:48 | PD ---
HPI Chief Complaint: Psychiatric Symptoms Time Seen by Provider: 23:43 Travel History International Travel<30 days: No Contact w/Intl Traveler<30days: No Traveled to known affect area: No History of Present Illness HPI 50-year-old male presents to the emergency department by police transport for evaluation of Delgado act. Patient reportedly has a Delgado act indicating he is suicidal with plan to cut his wrists that his kids will let him. Patient admits to being alcoholic and states he drinks a gallon of alcohol daily and drank several alcoholic beverages 30 minutes prior to arrival to the emergency department and reports if he stays here very long he will go through alcohol withdrawal. Patient has not been taking his blood pressure medication which she reports is clonidine. Patient has no new complaints. Patient has history of hepatitis C hypertension alcoholism and previous suicidal ideation. PFSH Past Medical History Narrative Medical Bipolar disorder hypertension CVA hepatitis C alcoholism kidney stones migraines facial surgery; nursing notes reviewed Blood Disorders: No Bipolar Disorder: Yes Anxiety: Yes (PANIC DISORDERS) Depression: Yes Cancer: No Cardiovascular Problems: Yes (HTN) Chest Pain: Yes Cerebrovascular Accident: Yes Diabetes: No Diminished Hearing: No Endocrine: No Gastrointestinal Disorders: Yes (hep c) GERD: Yes Genitourinary: Yes Hepatitis: Yes (HEP C) Hypertension: Yes Immune Disorder: No Implanted Vascular Access Dvce: No Insomnia: Yes Kidney Stones: Yes Musculoskeletal: No Neurologic: No Psychiatric: Yes (bipolar disorder) Reproductive: No Respiratory: No Integumentary: Yes Immunizations Current: Yes Migraines: Yes Radiation Therapy: No Renal Failure: No Schizophrenia: Yes Seizures: No Ulcer: Yes Past Surgical History Abdominal Surgery: No AICD: No Body Medical Devices: TITANIUM PIECE LEFT CHEEK AREA. Cardiac Surgery: No Ear Surgery: No Endocrine Surgery: No Eye Surgery: No Genitourinary Surgery: No Joint Replacement: No Neurologic Surgery: No Oral Surgery: No Pacemaker: No Thoracic Surgery: No Other Surgery: Yes (FACIAL SURGERY) Social History Alcohol Use: Yes (daily) Tobacco Use: No Substance Use: Yes (ALCOHOL ABUSE (CHRONIC)) Allergies-Medications (Allergen,Severity, Reaction): Coded Allergies: Penicillin (Verified Adverse Reaction, Severe, SYNCOPE, 08/23/16) PT DENIES ANY ALLERGY Reported Meds & Prescriptions Reported Meds & Active Scripts Active Permethrin Topical (Permethrin) 5% Cream 1 Applic TOPICAL ONCE Reported Bupropion HCl 100 Mg Tab 150 Mg PO HS Seroquel (Quetiapine Fumarate) 100 Mg Tab 100 Mg PO DAILY Review of Systems Except as stated in HPI: all other systems reviewed are Neg Physical Exam Narrative GENERAL: Well-developed well-nourished male in no acute distress no respiratory distress GCS 15; intermittently cooperative and belligerent. SKIN: Warm and dry. HEAD: Normocephalic. EYES: No scleral icterus. No injection or drainage. NECK: Supple, trachea midline. No JVD or lymphadenopathy. CARDIOVASCULAR: Regular rate and rhythm without murmurs, gallops, or rubs. RESPIRATORY: Breath sounds equal bilaterally. No accessory muscle use. GASTROINTESTINAL: Abdomen soft, non-tender, nondistended. MUSCULOSKELETAL: No cyanosis, or edema. BACK: Nontender without obvious deformity. No CVA tenderness. Data Data Last Documented VS Vital Signs Date Time Temp Pulse Resp B/P Pulse Ox O2 Delivery O2 Flow Rate FiO2 08/23/16 23:41 112 18 08/23/16 23:35 98.8 141/110 96 Orders Complete Blood Count With Diff (08/23/16 23:43) Comprehensive Metabolic Panel (08/23/16 23:43) Psych Screen (08/23/16 23:43) Drug Screen, Random Urine (08/23/16 23:43) Alcohol (Ethanol) (08/23/16 23:43) Potassium Chloride (Kcl) (08/24/16 00:30) Lorazepam Inj (Ativan Inj) (08/24/16 00:30) Lorazepam Inj (Ativan Inj) (08/24/16 03:15) Labs Laboratory Tests Test 08/23/16 08/24/16 23:45 00:00 White Blood Count 9.9 TH/MM3 Red Blood Count 5.25 MIL/MM3 Hemoglobin 16.0 GM/DL Hematocrit 46.0 % Mean Corpuscular Volume 87.7 FL Mean Corpuscular Hemoglobin 30.5 PG Mean Corpuscular Hemoglobin 34.8 % Concent Red Cell Distribution Width 14.9 % Platelet Count 245 TH/MM3 Mean Platelet Volume 7.5 FL Neutrophils (%) (Auto) 57.8 % Lymphocytes (%) (Auto) 27.1 % Monocytes (%) (Auto) 9.6 % Eosinophils (%) (Auto) 4.4 % Basophils (%) (Auto) 1.1 % Neutrophils # (Auto) 5.7 TH/MM3 Lymphocytes # (Auto) 2.7 TH/MM3 Monocytes # (Auto) 0.9 TH/MM3 Eosinophils # (Auto) 0.4 TH/MM3 Basophils # (Auto) 0.1 TH/MM3 CBC Comment DIFF FINAL Differential Comment Sodium Level 142 MEQ/L Potassium Level 3.1 MEQ/L Chloride Level 106 MEQ/L Carbon Dioxide Level 24.7 MEQ/L Anion Gap 11 MEQ/L Blood Urea Nitrogen 7 MG/DL Creatinine 1.13 MG/DL Estimat Glomerular Filtration 69 ML/MIN Rate Random Glucose 113 MG/DL Calcium Level 8.7 MG/DL Total Bilirubin 0.3 MG/DL Aspartate Amino Transf 52 U/L (AST/SGOT) Alanine Aminotransferase 72 U/L (ALT/SGPT) Alkaline Phosphatase 78 U/L Total Protein 8.3 GM/DL Albumin 4.3 GM/DL Ethyl Alcohol Level 288 MG/DL Urine Opiates Screen NEG Urine Barbiturates Screen NEG Urine Amphetamines Screen NEG Urine Benzodiazepines Screen NEG Urine Cocaine Screen NEG Urine Cannabinoids Screen NEG MDM Medical Decision Making Medical Screen Exam Complete: Yes Emergency Medical Condition: Yes Medical Record Reviewed: Yes Interpretation(s) CBC & BMP Diagram 08/23/16 23:45 Vital Signs Date Time Temp Pulse Resp B/P Pulse Ox O2 Delivery O2 Flow Rate FiO2 08/23/16 23:41 112 18 08/23/16 23:35 98.8 112 18 141/110 96 Differential Diagnosis Suicidal ideation, depression, mood disorder, alcohol intoxication, medication noncompliance, hypertension, malingering; no evidence at this time of acute withdrawal Narrative Course Patient presents with [place] [employer] officer with Delgado act; basic labs collected and psych screen ordered At 12 AM patient attempted to elope and then when confronted became combative and had to be restrained with leather restraints then when confronted and prevented from leaving became combative requiring placement of leather restraints Labs resulted and grossly wnl except hypokalemia 3.1 --replace with oral potassium and serum alcohol of 288; patient daily alcohol consumption. Patient is otherwise medically cleared fro psych screener evaluation. Diagnosis Primary Impression: Alcohol abuse with alcohol-induced mood disorder Tanya Merrill MD Aug 23, 2016 23:48
[2016-08-23 23:54] LABS: AUTOMATED NEUTROPHIL # 5.7 TH/MM3 (1.8-7.7); BASOPHIL # 0.1 TH/MM3 (0-0.2); BASOPHIL % 1.1 % (0.0-2.0); EOSINOPHIL # 0.4 TH/MM3 (0-0.4); EOSINOPHIL % 4.4 % (0.0-4.0); HEMO FLAGS DIFF FINAL; LYMPH % 27.1 % (9.0-44.0); LYMPHOCYTE # 2.7 TH/MM3 (1.0-4.8); MEAN CELL VOLUME 87.7 FL (80.0-100.0); MEAN CORPUSCULAR HEMOGLOBIN 30.5 PG (27.0-34.0); MEAN CORPUSCULAR HGB CONC 34.8 % (32.0-36.0); MONO % 9.6 % (0.0-8.0); NEUT % 57.8 % (16.0-70.0); PLATELET COUNT 245 TH/MM3 (150-450); RED BLOOD COUNT 5.25 MIL/MM3 (4.50-5.90); RED CELL DISTRIBUTION WIDTH 14.9 % (11.6-17.2); WHITE BLOOD COUNT 9.9 TH/MM3 (4.0-11.0)
[2016-08-24 00:07] LABS: ANION GAP 11 MEQ/L (5-15)
[2016-08-24 00:11] LABS: ALKALINE PHOSPHATASE 78 U/L (45-117); ALT (GPT) 72 U/L (12-78); AST (GOT) 52 U/L (15-37); BICARBONATE 24.7 MEQ/L (21.0-32.0); BLOOD UREA NITROGEN 7 MG/DL (7-18); CHLORIDE 106 MEQ/L (98-107); GLOMERULAR FILTRATION RATE 69 ML/MIN (>89); POTASSIUM 3.1 MEQ/L (3.5-5.1); SODIUM (NA) 142 MEQ/L (136-145); TOTAL BILIRUBIN ADULT 0.3 MG/DL (0.2-1.0)
[2016-08-24] MEDS ORDERED: LORazepam 2 MG/ML VIAL IM ONE ×2 (00:30→03:15)
[2016-08-24] MEDS ORDERED: POTASSIUM CHLORIDE 20 MEQ CONTROLLED RELEASE TAB PO ONE (00:30)
[2016-08-24 00:32] LABS: AMPHETAMINE, URINE NEG (NEG); BARBITURATES, URINE NEG (NEG); COCAINE, URINE NEG (NEG)
[2016-08-24 08:12] VITALS: BP 135/88; PULSE 80; RESP 18; TEMP 98.2; O2SAT 98
--- NOTE | 2016-08-24 12:14 | PD ---
History of Present Illness Chief Complaint: Psychiatric Symptoms Time Seen by Provider: 12:00 Travel History International Travel<30 Days: No Contact w/Intl Traveler<30days: No Known affected area: No Legal Status Legal Status: Delgado Act Delgado Act Signed By: Kirstie Garcia History of Present Illness: 50-year-old male with a long history of alcoholism. Patient admits that he is an alcoholic. Apparently he came into the emergency department last evening under a Delgado act for making suicidal threats. He had been consuming large quantities of alcohol last evening as well. According to patient's report, he may consume up to a gallon of alcohol per day. He complained that his children don't care if he cuts his wrists or kills himself. At this point the patient is no longer intoxicated and is not expressing any suicidal or homicidal ideation, plan or intention. He is calm and cooperative. He states he would like to return to the [facility] where he resides. He is not interested in [facility] for detox and rehabilitation at this time. This physician notes after reviewing his records that he has been to this facility on multiple occasions this year and last year with the same presentation, including alcohol abuse. Patient denies symptoms of depression or other major mental illness. Patient does not meet criteria for Delgado acted does not meet criteria for inpatient psychiatric hospitalization. PFSH Past Medical History Blood Disorders: No Bipolar Disorder: Yes Anxiety: Yes (PANIC DISORDERS) Depression: Yes Cancer: No Cardiovascular Problems: Yes (HTN) Chest Pain: Yes Cerebrovascular Accident: Yes Diabetes: No Diminished Hearing: No Endocrine: No Gastrointestinal Disorders: Yes (hep c) GERD: Yes Genitourinary: Yes Hepatitis: Yes (HEP C) Hypertension: Yes Immune Disorder: No Implanted Vascular Access Dvce: No Insomnia: Yes Kidney Stones: Yes Musculoskeletal: No Neurologic: No Psychiatric: Yes (bipolar disorder) Reproductive: No Respiratory: No Integumentary: Yes Immunizations Current: Yes Migraines: Yes Radiation Therapy: No Renal Failure: No Schizophrenia: Yes Seizures: No Ulcer: Yes Past Surgical History Abdominal Surgery: No AICD: No Body Medical Devices: TITANIUM PIECE LEFT CHEEK AREA. Cardiac Surgery: No Ear Surgery: No Endocrine Surgery: No Eye Surgery: No Genitourinary Surgery: No Joint Replacement: No Neurologic Surgery: No Oral Surgery: No Pacemaker: No Thoracic Surgery: No Other Surgery: Yes (FACIAL SURGERY) Psychiatric History Psychiatric History Hx Psychiatric Treatment: Patient has an extensive history with [facility] for substance use. History of Inpatient Treatment: Yes Guns or firearms in home: No Social History Hx Alcohol Use: Yes (daily) Hx Tobacco Use: No Hx Substance Use: Yes (ALCOHOL ABUSE (CHRONIC)) Substance Use Type: Alcohol, Crack, Cocaine Other Substances Used: ADMITS TO DRINKING BEER DAILY AND USING COCAINE Hx of Substance Use Treatment: Yes Allergies-Medications (Allergen,Severity, Reaction): Coded Allergies: Penicillin (Verified Adverse Reaction, Severe, SYNCOPE, 08/23/16) PT DENIES ANY ALLERGY Reported Meds & Prescriptions Reported Meds & Active Scripts Active Permethrin Topical (Permethrin) 5% Cream 1 Applic TOPICAL ONCE Reported Bupropion HCl 100 Mg Tab 150 Mg PO HS Seroquel (Quetiapine Fumarate) 100 Mg Tab 100 Mg PO DAILY Review of Systems ROS Limitations: Clinical Condition Except as stated in HPI: all other systems reviewed are Neg Exam Exam Limitations: Clinical Condition Alert: Yes [place]: Person, Place, Date, Situation Mood: Calm Affect: Euthymic Speech: Clear, Logical Eye Contact: Normal Memory Intact: Immediate, Recent, Remote Insight/Judgement Adequate insight and judgment except where alcohol is concerned. MDM Medical Decision Making Medical Record Reviewed: Yes Assessment/Plan 50-year-old male with long history of alcoholism. Does not want treatment for alcoholism at this point. It is no longer intoxicated and no longer making suicidal threats. Calm and cooperative. No psychosis. Cognition is intact. Patient is competent to leave the hospital and return to the [facility] per his request. Does not meet criteria for psychiatric hospitalization or Delgado act. Orders Complete Blood Count With Diff (08/23/16 23:43) Comprehensive Metabolic Panel (08/23/16 23:43) Psych Screen (08/23/16 23:43) Drug Screen, Random Urine (08/23/16 23:43) Alcohol (Ethanol) (08/23/16 23:43) Potassium Chloride (Kcl) (08/24/16 00:30) Lorazepam Inj (Ativan Inj) (08/24/16 00:30) Lorazepam Inj (Ativan Inj) (08/24/16 03:15) Diet Regular Basic (08/24/16 Lunch) Results Vital Signs Date Time Temp Pulse Resp B/P Pulse Ox O2 Delivery O2 Flow Rate FiO2 08/24/16 08:12 98.2 80 18 135/88 98 Room Air 08/23/16 23:41 112 18 08/23/16 23:35 98.8 112 18 141/110 96 Laboratory Tests Test 08/23/16 08/24/16 23:45 00:00 White Blood Count 9.9 Red Blood Count 5.25 Hemoglobin 16.0 Hematocrit 46.0 Mean Corpuscular Volume 87.7 Mean Corpuscular Hemoglobin 30.5 Mean Corpuscular Hemoglobin 34.8 Concent Red Cell Distribution Width 14.9 Platelet Count 245 Mean Platelet Volume 7.5 Neutrophils (%) (Auto) 57.8 Lymphocytes (%) (Auto) 27.1 Monocytes (%) (Auto) 9.6 Eosinophils (%) (Auto) 4.4 Basophils (%) (Auto) 1.1 Neutrophils # (Auto) 5.7 Lymphocytes # (Auto) 2.7 Monocytes # (Auto) 0.9 Eosinophils # (Auto) 0.4 Basophils # (Auto) 0.1 CBC Comment DIFF FINAL Differential Comment Sodium Level 142 Potassium Level 3.1 Chloride Level 106 Carbon Dioxide Level 24.7 Anion Gap 11 Blood Urea Nitrogen 7 Creatinine 1.13 Estimat Glomerular Filtration 69 Rate Random Glucose 113 Calcium Level 8.7 Total Bilirubin 0.3 Aspartate Amino Transf 52 (AST/SGOT) Alanine Aminotransferase 72 (ALT/SGPT) Alkaline Phosphatase 78 Total Protein 8.3 Albumin 4.3 Ethyl Alcohol Level 288 Urine Opiates Screen NEG Urine Barbiturates Screen NEG Urine Amphetamines Screen NEG Urine Benzodiazepines Screen NEG Urine Cocaine Screen NEG Urine Cannabinoids Screen NEG Diagnosis Primary Impression: Alcohol abuse with alcohol-induced mood disorder Ritchie Cruz MD Aug 24, 2016 12:14
== END 2016-08-24 14:17 | disposition home or self-care (01) ==
LOC: NEPC 23:23
DX: F10.24 Alcohol dependence with alcohol-induced mood disorder (principal); Y90.8 Blood alcohol level of 240 mg/100 ml or more
CPT/HCPCS: 80053; 80307; 85025; 96372; 99285; J2060

== ENCOUNTER 2016-12-01 00:16 | Emergency (ER) | payer OTHER ==
[~2016-12-01] VITALS: Ht 180.3 cm; Wt 60.0 kg
[2016-12-01 00:28] VITALS: BP 139/104; PULSE 93; RESP 20; TEMP 98.7; O2SAT 94
[2016-12-01 00:55] LABS: AUTOMATED NEUTROPHIL # 6.7 TH/MM3 (1.8-7.7); BASOPHIL # 0.1 TH/MM3 (0-0.2); BASOPHIL % 1.3 % (0.0-2.0); EOSINOPHIL # 0.6 TH/MM3 (0-0.4); EOSINOPHIL % 5.6 % (0.0-4.0); HEMATOCRIT 49.3 % (39.0-51.0); HEMO FLAGS DIFF FINAL; LYMPH % 29.1 % (9.0-44.0); LYMPHOCYTE # 3.4 TH/MM3 (1.0-4.8); MEAN CELL VOLUME 85.5 FL (80.0-100.0); MEAN CORPUSCULAR HEMOGLOBIN 29.8 PG (27.0-34.0); MEAN CORPUSCULAR HGB CONC 34.9 % (32.0-36.0); MONO % 6.7 % (0.0-8.0); NEUT % 57.3 % (16.0-70.0); PLATELET COUNT 279 TH/MM3 (150-450); RED BLOOD COUNT 5.76 MIL/MM3 (4.50-5.90); RED CELL DISTRIBUTION WIDTH 13.5 % (11.6-17.2); WHITE BLOOD COUNT 11.6 TH/MM3 (4.0-11.0)
[2016-12-01] MEDS ORDERED: FLUMAZENIL 0.5 MG/5 ML VIAL IV PUSH PRN (01:00)
[2016-12-01] MEDS ORDERED: LORazepam 2 MG/ML VIAL IV PUSH PRN ×4 (01:00)
[2016-12-01] MEDS: LORazepam 1 MG TAB PO PRN ×2 (01:00→11:07)
[2016-12-01] MEDS ORDERED: LORazepam 2 MG TAB PO PRN (01:00)
[2016-12-01 01:15] LABS: ALT (GPT) 89 U/L (12-78); ANION GAP 10 MEQ/L (5-15); AST (GOT) 61 U/L (15-37); BICARBONATE 26.7 MEQ/L (21.0-32.0); BLOOD UREA NITROGEN 10 MG/DL (7-18); CHLORIDE 105 MEQ/L (98-107); GLOMERULAR FILTRATION RATE 75 ML/MIN (>89); POTASSIUM 3.5 MEQ/L (3.5-5.1); SODIUM (NA) 142 MEQ/L (136-145)
[2016-12-01 01:17] LABS: ALKALINE PHOSPHATASE 88 U/L (45-117); TOTAL BILIRUBIN ADULT 0.4 MG/DL (0.2-1.0)
[2016-12-01 01:19] LABS: ACETAMINOPHEN LESS THAN 2.0 MCG/ML (10.0-30.0)
--- NOTE | 2016-12-01 02:02 | PD ---
HPI Chief Complaint: Psychiatric Symptoms Time Seen by Provider: 01:00 Travel History International Travel<30 days: No Contact w/Intl Traveler<30days: No Traveled to known affect area: No History of Present Illness HPI Patient is a 51-year-old male presenting to emergency under Delgado act to suicidal ideations. Patient states he just did not trust himself to not harm himself. Patient endorses daily alcohol use, he states he uses this as a "medicinal Band-Aid". He reports that he is very lonely, he has had several family members . He is and estranged from his children. He stated that he attempted to commit suicide in the past by overdosing on cocaine and alcohol. He denies any physical complaints at this time. Denies any auditory or visual hallucinations. PFSH Past Medical History Blood Disorders: No Bipolar Disorder: Yes Anxiety: Yes (PANIC DISORDERS) Depression: Yes Cancer: No Chest Pain: Yes Cerebrovascular Accident: Yes Diabetes: No Diminished Hearing: No Endocrine: No GERD: Yes Genitourinary: Yes Hepatitis: Yes (HEP C) Hypertension: Yes Immune Disorder: No Implanted Vascular Access Dvce: No Insomnia: Yes Kidney Stones: Yes Musculoskeletal: No Neurologic: No Psychiatric: Yes (bipolar disorder) Reproductive: No Respiratory: No Integumentary: Yes Immunizations Current: Yes Migraines: Yes Radiation Therapy: No Renal Failure: No Schizophrenia: Yes Seizures: No Ulcer: Yes Past Surgical History Abdominal Surgery: No AICD: No Body Medical Devices: TITANIUM PIECE LEFT CHEEK AREA. Cardiac Surgery: No Ear Surgery: No Endocrine Surgery: No Eye Surgery: No Genitourinary Surgery: No Joint Replacement: No Neurologic Surgery: No Oral Surgery: No Pacemaker: No Thoracic Surgery: No Other Surgery: Yes (FACIAL SURGERY) Social History Alcohol Use: Yes (daily) Tobacco Use: No Substance Use: Yes (ALCOHOL ABUSE (CHRONIC)) Allergies-Medications (Allergen,Severity, Reaction): Coded Allergies: Penicillin (Verified Adverse Reaction, Severe, SYNCOPE, 12/01/16) PT DENIES ANY ALLERGY Reported Meds & Prescriptions Reported Meds & Active Scripts Active Permethrin Topical (Permethrin) 5% Cream 1 Applic TOPICAL ONCE Reported Bupropion HCl 100 Mg Tab 150 Mg PO HS Seroquel (Quetiapine Fumarate) 100 Mg Tab 100 Mg PO DAILY Review of Systems ROS Limitations: Intoxication Except as stated in HPI: all other systems reviewed are Neg Psychiatric: Positive: Depression, Suicidal Ideations, Substance Abuse Physical Exam Narrative GENERAL: Well developed, well-nourished, alert male. Resting comfortably in no acute distress. SKIN: Focused skin assessment warm/dry. HEAD: Atraumatic. Normocephalic. EYES: Pupils equal and round. No scleral icterus. No injection or drainage. ENT: No nasal bleeding or discharge. Mucous membranes pink and moist. NECK: Trachea midline. No JVD. CARDIOVASCULAR: Regular rate and rhythm. No murmur appreciated. RESPIRATORY: No accessory muscle use. Clear to auscultation. Breath sounds equal bilaterally. GASTROINTESTINAL: Abdomen soft, non-tender, nondistended. Hepatic and splenic margins not palpable. MUSCULOSKELETAL: No obvious deformities. No clubbing. No cyanosis. No edema. NEUROLOGICAL: Awake and alert. No obvious cranial nerve deficits. Motor grossly within normal limits. Normal speech. PSYCHIATRIC: Depressed mood and affect; insight and judgment normal. Data Data Last Documented VS Vital Signs Date Time Temp Pulse Resp B/P Pulse Ox O2 Delivery O2 Flow Rate FiO2 12/01/16 02:17 90 17 140/82 95 Room Air 12/01/16 00:28 98.7 Orders Complete Blood Count With Diff (12/01/16 00:23) Comprehensive Metabolic Panel (12/01/16 00:23) Psych Screen (12/01/16 00:23) Drug Screen, Random Urine (12/01/16 00:23) Alcohol (Ethanol) (12/01/16 00:23) Salicylates (Aspirin) (12/01/16 00:23) Tylenol (Acetaminophen) (12/01/16 00:23) Alcohol Withdrawal Asmt-Ciwa ONCE (12/01/16 00:51) Flumazenil Inj (Romazicon Inj) (12/01/16 01:00) Lorazepam (Ativan) (12/01/16 01:00) Lorazepam Inj (Ativan Inj) (12/01/16 01:00) Lorazepam (Ativan) (12/01/16 01:00) Lorazepam Inj (Ativan Inj) (12/01/16 01:00) Lorazepam Inj (Ativan Inj) (12/01/16 01:00) Lorazepam Inj (Ativan Inj) (12/01/16 01:00) Labs Laboratory Tests Test 12/01/16 00:41 White Blood Count 11.6 TH/MM3 Red Blood Count 5.76 MIL/MM3 Hemoglobin 17.2 GM/DL Hematocrit 49.3 % Mean Corpuscular Volume 85.5 FL Mean Corpuscular Hemoglobin 29.8 PG Mean Corpuscular Hemoglobin 34.9 % Concent Red Cell Distribution Width 13.5 % Platelet Count 279 TH/MM3 Mean Platelet Volume 7.5 FL Neutrophils (%) (Auto) 57.3 % Lymphocytes (%) (Auto) 29.1 % Monocytes (%) (Auto) 6.7 % Eosinophils (%) (Auto) 5.6 % Basophils (%) (Auto) 1.3 % Neutrophils # (Auto) 6.7 TH/MM3 Lymphocytes # (Auto) 3.4 TH/MM3 Monocytes # (Auto) 0.8 TH/MM3 Eosinophils # (Auto) 0.6 TH/MM3 Basophils # (Auto) 0.1 TH/MM3 CBC Comment DIFF FINAL Differential Comment Sodium Level 142 MEQ/L Potassium Level 3.5 MEQ/L Chloride Level 105 MEQ/L Carbon Dioxide Level 26.7 MEQ/L Anion Gap 10 MEQ/L Blood Urea Nitrogen 10 MG/DL Creatinine 1.05 MG/DL Estimat Glomerular Filtration 75 ML/MIN Rate Random Glucose 106 MG/DL Calcium Level 8.9 MG/DL Total Bilirubin 0.4 MG/DL Aspartate Amino Transf 61 U/L (AST/SGOT) Alanine Aminotransferase 89 U/L (ALT/SGPT) Alkaline Phosphatase 88 U/L Total Protein 8.9 GM/DL Albumin 4.6 GM/DL Salicylates Level LESS THAN 1.7 MG/DL Acetaminophen Level LESS THAN 2.0 MCG/ML Ethyl Alcohol Level 296 MG/DL [facility] Medical Decision Making Medical Screen Exam Complete: Yes Emergency Medical Condition: Yes Medical Record Reviewed: Yes Interpretation(s) Laboratory Tests Test 12/01/16 00:41 White Blood Count 11.6 TH/MM3 Red Blood Count 5.76 MIL/MM3 Hemoglobin 17.2 GM/DL Hematocrit 49.3 % Mean Corpuscular Volume 85.5 FL Mean Corpuscular Hemoglobin 29.8 PG Mean Corpuscular Hemoglobin 34.9 % Concent Red Cell Distribution Width 13.5 % Platelet Count 279 TH/MM3 Mean Platelet Volume 7.5 FL Neutrophils (%) (Auto) 57.3 % Lymphocytes (%) (Auto) 29.1 % Monocytes (%) (Auto) 6.7 % Eosinophils (%) (Auto) 5.6 % Basophils (%) (Auto) 1.3 % Neutrophils # (Auto) 6.7 TH/MM3 Lymphocytes # (Auto) 3.4 TH/MM3 Monocytes # (Auto) 0.8 TH/MM3 Eosinophils # (Auto) 0.6 TH/MM3 Basophils # (Auto) 0.1 TH/MM3 CBC Comment DIFF FINAL Differential Comment Sodium Level 142 MEQ/L Potassium Level 3.5 MEQ/L Chloride Level 105 MEQ/L Carbon Dioxide Level 26.7 MEQ/L Anion Gap 10 MEQ/L Blood Urea Nitrogen 10 MG/DL Creatinine 1.05 MG/DL Estimat Glomerular Filtration 75 ML/MIN Rate Random Glucose 106 MG/DL Calcium Level 8.9 MG/DL Total Bilirubin 0.4 MG/DL Aspartate Amino Transf 61 U/L (AST/SGOT) Alanine Aminotransferase 89 U/L (ALT/SGPT) Alkaline Phosphatase 88 U/L Total Protein 8.9 GM/DL Albumin 4.6 GM/DL Salicylates Level LESS THAN 1.7 MG/DL Acetaminophen Level LESS THAN 2.0 MCG/ML Ethyl Alcohol Level 296 MG/DL Vital Signs Date Time Temp Pulse Resp B/P Pulse Ox O2 Delivery O2 Flow Rate FiO2 12/01/16 00:28 98.7 93 20 139/104 94 Differential Diagnosis Mood disorder versus substance abuse versus acute intoxication versus malingering versus psychosis versus electrolyte abnormality versus other Narrative Course Patient is a 51-year-old male presenting to the emergency department under Delgado act to suicidal ideations. He has a history of drug and alcohol abuse, he reports increasing depression due to relationship issues and several deaths in his family. Labs reviewed, no acute issues identified. Alcohol level is 296. Patient is medically clear for psychiatric evaluation at this time. Diagnosis Primary Impression: Medical clearance for psychiatric admission Additional Impressions: Depression Qualified Code: F32.9 - Depression, unspecified depression type Alcohol intoxication Qualified Code: F10.920 - Alcohol intoxication, uncomplicated Condition: Stable Renetta Graham Dec 01, 2016 02:02
[2016-12-01 02:17] VITALS: BP 140/82; PULSE 90; RESP 17; O2SAT 95
[2016-12-01 05:30] VITALS: PULSE 94
[2016-12-01 06:21] VITALS: BP 137/101; PULSE 91; RESP 18; TEMP 97.5; O2SAT 98
[2016-12-01 07:57] LABS: AMPHETAMINE, URINE NEG (NEG); BARBITURATES, URINE NEG (NEG); COCAINE, URINE NEG (NEG)
[2016-12-01] MEDS ORDERED: LORA-474 PO (11:39)
--- NOTE | 2016-12-01 11:46 | PD ---
History of Present Illness Chief Complaint: Psychiatric Symptoms Time Seen by Provider: 11:30 Travel History International Travel<30 Days: No Contact w/Intl Traveler<30days: No Known affected area: No Legal Status Legal Status: Delgado Act Delgado Act Signed By: Kirstie Garcia Delgado Act Comment: 2016 @ 0000 History of Present Illness: 51-year-old male, well known to the staff in the [facility] emergency department, presents under a Delgado act for making suicidal threats. Patient has a long history of alcohol abuse. The patient himself feels his alcohol use is not a problem and that he suffers from posttraumatic stress disorder. He also indicates he has been grieving the loss of his for the past 10 years, even though she him. He is currently receiving housing through [facility] He believes he is self-medicating his anxiety with alcohol. This physician confronted him regarding that idea but the patient states "will have to agree to disagree". He is still a patient at [facility] and is able to go to their detox program if he so desires. This physician is willing to provide him with 7 pills of Ativan, 1 mg each. However, this physician does not feel the patient should be admitted to a psychiatry bed and thereby enabling him to continue with this behavior. Patient is highly manipulative and needs to attend AA meetings, obtain a sponsor, etc. The patient's Delgado act was therefore lifted and he is being discharged home with outpatient follow up. PFSH Past Medical History Blood Disorders: No Bipolar Disorder: Yes Anxiety: Yes (PANIC DISORDERS) Depression: Yes Cancer: No Chest Pain: Yes Cerebrovascular Accident: Yes Diabetes: No Diminished Hearing: No Endocrine: No GERD: Yes Genitourinary: Yes Hepatitis: Yes (HEP C) Hypertension: Yes Immune Disorder: No Implanted Vascular Access Dvce: No Insomnia: Yes Kidney Stones: Yes Musculoskeletal: No Neurologic: No Psychiatric: Yes (bipolar disorder) Reproductive: No Respiratory: No Integumentary: Yes Immunizations Current: Yes Migraines: Yes Radiation Therapy: No Renal Failure: No Schizophrenia: Yes Seizures: No Ulcer: Yes Past Surgical History Abdominal Surgery: No AICD: No Body Medical Devices: TITANIUM PIECE LEFT CHEEK AREA. Cardiac Surgery: No Ear Surgery: No Endocrine Surgery: No Eye Surgery: No Genitourinary Surgery: No Joint Replacement: No Neurologic Surgery: No Oral Surgery: No Pacemaker: No Thoracic Surgery: No Other Surgery: Yes (FACIAL SURGERY) Psychiatric History Psychiatric History Hx Psychiatric Treatment: Patient has an extensive history with [facility] for substance use. Patient reports a documented history of PTSD. However, he shows no significant clinical signs of that disorder at this time. History of Inpatient Treatment: Yes Guns or firearms in home: No Social History Hx Alcohol Use: Yes (daily) Hx Tobacco Use: No Hx Substance Use: Yes (ALCOHOL ABUSE (CHRONIC)) Substance Use Type: Alcohol, Crack, Cocaine Other Substances Used: ADMITS TO DRINKING BEER DAILY AND USING COCAINE Hx of Substance Use Treatment: Yes Allergies-Medications (Allergen,Severity, Reaction): Coded Allergies: Penicillin (Verified Adverse Reaction, Severe, SYNCOPE, 12/01/16) PT DENIES ANY ALLERGY Reported Meds & Prescriptions Reported Meds & Active Scripts Active Ativan (Lorazepam) 1 Mg Tab 1 Mg PO DAILY PRN Permethrin Topical 5% (Permethrin) 5% Cream 1 Applic TOPICAL ONCE Reported Bupropion HCl 100 Mg Tab 150 Mg PO HS Seroquel (Quetiapine Fumarate) 100 Mg Tab 100 Mg PO DAILY Review of Systems Except as stated in HPI: all other systems reviewed are Neg Exam Alert: Yes [place]: Person, Place, Date, Situation Mood: Calm Affect: Appropriate Speech: Clear, Logical Eye Contact: Normal Memory Intact: Immediate, Recent, Remote Suicidal: Ideation Insight/Judgement Adequate [facility] Medical Decision Making Medical Record Reviewed: Yes Assessment/Plan Although the patient continues to report suicidal ideation, he has no current plan. This physician believes he has no true intent. He would like to continue drinking and receive Ativan and housing assistance, etc. This physician did confront him with his long-standing history of alcohol abuse but the patient continues to report he is simply self-medicating. This physician feels it is counter therapeutic and inappropriate to give into the patient's manipulations and admit him to psychiatry. Therefore the patient's Delgado act is being lifted despite the risk that he may harm himself. He is being referred back to [facility] for treatment. Orders Complete Blood Count With Diff (12/01/16 00:23) Comprehensive Metabolic Panel (12/01/16 00:23) Psych Screen (12/01/16 00:23) Drug Screen, Random Urine (12/01/16 00:23) Alcohol (Ethanol) (12/01/16 00:23) Salicylates (Aspirin) (12/01/16 00:23) Tylenol (Acetaminophen) (12/01/16 00:23) Alcohol Withdrawal Asmt-Ciwa ONCE (12/01/16 00:51) Flumazenil Inj (Romazicon Inj) (12/01/16 01:00) Lorazepam (Ativan) (12/01/16 01:00) Lorazepam Inj (Ativan Inj) (12/01/16 01:00) Lorazepam (Ativan) (12/01/16 01:00) Lorazepam Inj (Ativan Inj) (12/01/16 01:00) Lorazepam Inj (Ativan Inj) (12/01/16 01:00) Lorazepam Inj (Ativan Inj) (12/01/16 01:00) Diet Regular Basic (12/01/16 Breakfast) Diet Regular Basic (12/01/16 Lunch) Results Vital Signs Date Time Temp Pulse Resp B/P Pulse Ox O2 Delivery O2 Flow Rate FiO2 12/01/16 06:21 97.5 91 18 137/101 98 Room Air 12/01/16 05:30 94 12/01/16 02:17 90 17 140/82 95 Room Air 12/01/16 00:28 98.7 93 20 139/104 94 Laboratory Tests Test 12/01/16 12/01/16 00:41 07:40 White Blood Count 11.6 Red Blood Count 5.76 Hemoglobin 17.2 Hematocrit 49.3 Mean Corpuscular Volume 85.5 Mean Corpuscular Hemoglobin 29.8 Mean Corpuscular Hemoglobin 34.9 Concent Red Cell Distribution Width 13.5 Platelet Count 279 Mean Platelet Volume 7.5 Neutrophils (%) (Auto) 57.3 Lymphocytes (%) (Auto) 29.1 Monocytes (%) (Auto) 6.7 Eosinophils (%) (Auto) 5.6 Basophils (%) (Auto) 1.3 Neutrophils # (Auto) 6.7 Lymphocytes # (Auto) 3.4 Monocytes # (Auto) 0.8 Eosinophils # (Auto) 0.6 Basophils # (Auto) 0.1 CBC Comment DIFF FINAL Differential Comment Sodium Level 142 Potassium Level 3.5 Chloride Level 105 Carbon Dioxide Level 26.7 Anion Gap 10 Blood Urea Nitrogen 10 Creatinine 1.05 Estimat Glomerular Filtration 75 Rate Random Glucose 106 Calcium Level 8.9 Total Bilirubin 0.4 Aspartate Amino Transf 61 (AST/SGOT) Alanine Aminotransferase 89 (ALT/SGPT) Alkaline Phosphatase 88 Total Protein 8.9 Albumin 4.6 Salicylates Level LESS THAN 1.7 Acetaminophen Level LESS THAN 2.0 Ethyl Alcohol Level 296 Urine Opiates Screen NEG Urine Barbiturates Screen NEG Urine Amphetamines Screen NEG Urine Benzodiazepines Screen NEG Urine Cocaine Screen NEG Urine Cannabinoids Screen NEG Diagnosis Primary Impression: Adjustment disorder with mixed disturbance of emotions and conduct Additional Impression: Alcohol abuse Prescriptions Lorazepam (Ativan)1 Mg Tab1 Mg PO DAILY PRN (ANXIETY AND/OR AGITATION) #7 TAB Ref 0 Prov:Ritchie Cruz MD 12/01/16 Condition: Stable Problem Qualifiers Ritchie Cruz MD Dec 01, 2016 11:46
[2016-12-01 12:47] VITALS: BP 148/108; PULSE 96; RESP 18; O2SAT 96
[2016-12-02] MEDS ORDERED: VIST50CA PO (22:49)
== END 2016-12-01 14:17 | disposition home or self-care (01) ==
LOC: NEPD 00:16 → NEPJ 14:17
DX: F43.25 Adjustment disorder with mixed disturbance of emotions and conduct (principal); F10.229 Alcohol dependence with intoxication, unspecified; Y90.8 Blood alcohol level of 240 mg/100 ml or more; I10 Essential (primary) hypertension; Z79.899 Other long term (current) drug therapy
CPT/HCPCS: 80053; 80307; 85025; 99284

== ENCOUNTER 2016-12-02 22:35 | Emergency (ER) | payer OTHER ==
[~2016-12-02] VITALS: Ht 182.9 cm; Wt 80.0 kg
[~2016-12-02 22:35] MED LIST changes: +LORA-474 PO
[2016-12-02] MEDS ORDERED: VIST50CA PO (22:49)
[2016-12-02 22:51] VITALS: BP 170/105; PULSE 102; RESP 18; TEMP 99; O2SAT 99
--- NOTE | 2016-12-02 23:02 | PD ---
HPI Chief Complaint: Psychiatric Symptoms Time Seen by Provider: 22:53 Travel History International Travel<30 days: No Contact w/Intl Traveler<30days: No Traveled to known affect area: No History of Present Illness HPI This patient presents under police Delgado act. Reportedly was making suicidal statements in the parking lot of a [employer]. Patient is frequent visitor for psychiatric and alcohol related problems. He was here yesterday and had psychiatric evaluation. I asked him if he filled the prescription from the psychiatrist yesterday for Ativan and he refuses to answer. He admits to drinking today. He denies any drug use. Symptoms severity is moderate. Duration is chronic over months to years of time. No alleviating factors. PFSH Past Medical History Blood Disorders: No Bipolar Disorder: Yes Anxiety: Yes (PANIC DISORDERS) Depression: Yes Cancer: No Chest Pain: Yes Cerebrovascular Accident: Yes Diabetes: No Diminished Hearing: No Endocrine: No Gastrointestinal Disorders: Yes (hep c) GERD: Yes Genitourinary: Yes Hepatitis: Yes (HEP C) Hypertension: Yes Immune Disorder: No Implanted Vascular Access Dvce: No Insomnia: Yes Kidney Stones: Yes Musculoskeletal: No Neurologic: No Psychiatric: Yes (bipolar disorder) Reproductive: No Respiratory: No Integumentary: Yes Immunizations Current: Yes Migraines: Yes Radiation Therapy: No Renal Failure: No Schizophrenia: Yes Seizures: No Ulcer: Yes Past Surgical History Abdominal Surgery: No AICD: No Body Medical Devices: TITANIUM PIECE LEFT CHEEK AREA. Cardiac Surgery: No Ear Surgery: No Endocrine Surgery: No Eye Surgery: No Genitourinary Surgery: No Joint Replacement: No Neurologic Surgery: No Oral Surgery: No Pacemaker: No Thoracic Surgery: No Other Surgery: Yes (FACIAL SURGERY) Social History Alcohol Use: Yes (daily) Tobacco Use: No Substance Use: Yes (ALCOHOL ABUSE (CHRONIC) COCAINE ONCE IN AWHILE) Allergies-Medications (Allergen,Severity, Reaction): Coded Allergies: Penicillin (Verified Adverse Reaction, Severe, SYNCOPE, 12/02/16) PT DENIES ANY ALLERGY Reported Meds & Prescriptions Reported Meds & Active Scripts Active Ativan (Lorazepam) 1 Mg Tab 1 Mg PO DAILY PRN Reported Vistaril (Hydroxyzine Pamoate) 50 Mg Cap 50 Mg PO TID Seroquel (Quetiapine Fumarate) 100 Mg Tab 100 Mg PO DAILY Review of Systems General / Constitutional: No: Fever Eyes: No: Visual changes HENT: No: Headaches Cardiovascular: No: Chest Pain or Discomfort Respiratory: No: Shortness of Breath Gastrointestinal: No: Abdominal Pain Genitourinary: No: Dysuria Musculoskeletal: No: Pain Skin: No Rash Neurologic: No: Weakness Psychiatric: Positive: Depression, Suicidal Ideations, Substance Abuse Endocrine: No: Polydipsia Hematologic/Lymphatic: No: Easy Bruising Physical Exam Narrative GENERAL: Well-nourished, well-developed patient in no apparent distress. SKIN: Focused skin assessment reveals no rash and nodules. Skin is Warm and dry. HEAD: Atraumatic. Normocephalic. EYES: Pupils equal and round. No scleral icterus. No injection or drainage. ENT: No nasal bleeding or discharge. Mucous membranes pink and moist. NECK: Trachea midline. No JVD. CARDIOVASCULAR: Regular rate and rhythm. No murmur appreciated. RESPIRATORY: No accessory muscle use. Clear to auscultation. Breath sounds equal bilaterally. GASTROINTESTINAL: Abdomen soft, non-tender, nondistended. Hepatic and splenic margins not palpable. MUSCULOSKELETAL: No obvious deformities. No clubbing. No cyanosis. No edema. NEUROLOGICAL: Awake and alert. No obvious cranial nerve deficits. Motor grossly within normal limits. Normal speech. PSYCHIATRIC: Depressed mood and affect; insight and judgment poor. Data Data Last Documented VS Vital Signs Date Time Temp Pulse Resp B/P Pulse Ox O2 Delivery O2 Flow Rate FiO2 12/02/16 22:51 99.0 102 18 170/105 99 Room Air Orders Complete Blood Count With Diff (12/02/16 22:57) Basic Metabolic Panel (Bmp) (12/02/16 22:57) Alcohol (Ethanol) (12/02/16 22:57) Psych Screen (12/02/16 22:57) Haloperidol Inj (Haldol Inj) (12/02/16 23:30) Lorazepam Inj (Ativan Inj) (12/02/16 23:30) Labs Laboratory Tests Test 12/02/16 23:00 White Blood Count 10.8 TH/MM3 Red Blood Count 5.82 MIL/MM3 Hemoglobin 17.6 GM/DL Hematocrit 50.0 % Mean Corpuscular Volume 85.8 FL Mean Corpuscular Hemoglobin 30.3 PG Mean Corpuscular Hemoglobin 35.3 % Concent Red Cell Distribution Width 13.6 % Platelet Count 321 TH/MM3 Mean Platelet Volume 7.7 FL Neutrophils (%) (Auto) 60.3 % Lymphocytes (%) (Auto) 27.7 % Monocytes (%) (Auto) 5.9 % Eosinophils (%) (Auto) 3.7 % Basophils (%) (Auto) 2.4 % Neutrophils # (Auto) 6.5 TH/MM3 Lymphocytes # (Auto) 3.0 TH/MM3 Monocytes # (Auto) 0.6 TH/MM3 Eosinophils # (Auto) 0.4 TH/MM3 Basophils # (Auto) 0.3 TH/MM3 CBC Comment DIFF FINAL Differential Comment Sodium Level 136 MEQ/L Potassium Level 3.6 MEQ/L Chloride Level 101 MEQ/L Carbon Dioxide Level 25.0 MEQ/L Anion Gap 10 MEQ/L Blood Urea Nitrogen 10 MG/DL Creatinine 1.18 MG/DL Estimat Glomerular Filtration 66 ML/MIN Rate Random Glucose 104 MG/DL Calcium Level 9.1 MG/DL Ethyl Alcohol Level 335 MG/DL MDM Medical Decision Making Medical Screen Exam Complete: Yes Emergency Medical Condition: Yes Medical Record Reviewed: Yes Differential Diagnosis Alcohol intoxication, depression, malingering Narrative Course I have reviewed the patient's electronic medical record. 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 Patient will be given time to sober up while awaiting psychiatric screening. Disposition will be per psychiatry Diagnosis Primary Impression: Alcohol intoxication Qualified Code: F10.920 - Alcohol intoxication, uncomplicated Additional Impressions: Alcohol abuse with alcohol-induced mood disorder Suicidal ideations Depression Qualified Code: F32.9 - Depression, unspecified depression type Matthew Gallagher MD Dec 02, 2016 23:01
[2016-12-02 23:19] LABS: AUTOMATED NEUTROPHIL # 6.5 TH/MM3 (1.8-7.7); BASOPHIL # 0.3 TH/MM3 (0-0.2); BASOPHIL % 2.4 % (0.0-2.0); EOSINOPHIL # 0.4 TH/MM3 (0-0.4); EOSINOPHIL % 3.7 % (0.0-4.0); HEMO FLAGS DIFF FINAL; LYMPH % 27.7 % (9.0-44.0); MEAN CELL VOLUME 85.8 FL (80.0-100.0); MEAN CORPUSCULAR HEMOGLOBIN 30.3 PG (27.0-34.0); MEAN CORPUSCULAR HGB CONC 35.3 % (32.0-36.0); MONO % 5.9 % (0.0-8.0); NEUT % 60.3 % (16.0-70.0); PLATELET COUNT 321 TH/MM3 (150-450); RED BLOOD COUNT 5.82 MIL/MM3 (4.50-5.90); RED CELL DISTRIBUTION WIDTH 13.6 % (11.6-17.2); WHITE BLOOD COUNT 10.8 TH/MM3 (4.0-11.0)
[2016-12-02] MEDS ORDERED: LORazepam 2 MG/ML VIAL IM ONE (23:30)
[2016-12-02] MEDS ORDERED: HALOPERIDOL LACTATE 5 MG/ML AMP IM ONE (23:30)
[2016-12-02 23:32] LABS: POTASSIUM 3.6 MEQ/L (3.5-5.1)
[2016-12-03 00:54] VITALS: BP 107/70; PULSE 97; RESP 18; O2SAT 97
[2016-12-03 02:11] VITALS: BP 98/63; PULSE 87; RESP 18; TEMP 98.8; O2SAT 97
== END 2016-12-03 04:30 ==
LOC: NEPD 22:35 → NEPJ 12-03 04:30
DX: F10.120 Alcohol abuse with intoxication, uncomplicated (principal); F10.14 Alcohol abuse with alcohol-induced mood disorder; F20.9 Schizophrenia, unspecified; F41.8 Other specified anxiety disorders; I10 Essential (primary) hypertension; Y90.8 Blood alcohol level of 240 mg/100 ml or more
CPT/HCPCS: 80048; 80307; 85025; 96372; 99285; J1630; J2060

== ENCOUNTER 2016-12-19 15:56 | Emergency (ER) | payer SELFPAY ==
[~2016-12-19] VITALS: Ht 182.9 cm; Wt 75.0 kg
[~2016-12-19 15:56] MED LIST changes: -BUPR100T4 PO; -PERM5CRE TOPICAL; +VIST50CA PO
[2016-12-19 15:59] VITALS: BP 137/98; PULSE 120; RESP 20; TEMP 97.8; O2SAT 96
--- NOTE | 2016-12-19 16:19 | PD ---
Physical Exam Date Seen by Provider: Dec 19, 2016 Time Seen by Provider: 16:18 Narrative 51 yr old male here with alcohol intoxication stating he does not want to live anymore and wants to kill himself. He is awaiting bed placement. Data Data Last Documented VS Vital Signs Date Time Temp Pulse Resp B/P Pulse Ox O2 Delivery O2 Flow Rate FiO2 12/19/16 15:59 97.8 120 20 137/98 96 Room Air [facility] Medical Record Reviewed: Yes Supervised Visit with ELEONORA: No Condition: Stable Whit Owens Dec 19, 2016 16:19
--- NOTE | 2016-12-19 16:42 | PD ---
HPI Chief Complaint: Psychiatric Symptoms Time Seen by Provider: 16:42 Travel History International Travel<30 days: No Contact w/Intl Traveler<30days: No Traveled to known affect area: No History of Present Illness HPI 51-year-old male presents to the emergency Department voluntarily for psychiatric evaluation. Patient is intoxicated. He states that he has suicidal ideation and wants to kill himself. When asked if he has a plan, he states "I want to blow my brains out". Patient states he has access to a gun. The patient denies attempting to hurt himself in any way at this time. Patient reports no chronic medical problems and takes no prescribed medications. He has no other complaints at this time. PFSH Past Medical History Blood Disorders: No Bipolar Disorder: Yes Anxiety: Yes (PANIC DISORDERS) Depression: Yes Cancer: No Chest Pain: Yes Cerebrovascular Accident: Yes Diabetes: No Diminished Hearing: No Endocrine: No Gastrointestinal Disorders: Yes (hep c) GERD: Yes Genitourinary: Yes Hepatitis: Yes (HEP C) Hypertension: Yes Immune Disorder: No Implanted Vascular Access Dvce: No Insomnia: Yes Kidney Stones: Yes Musculoskeletal: No Neurologic: No Psychiatric: Yes (bipolar disorder) Reproductive: No Respiratory: No Integumentary: Yes Immunizations Current: Yes Migraines: Yes Radiation Therapy: No Renal Failure: No Schizophrenia: Yes Seizures: No Ulcer: Yes Influenza Vaccination: Yes Past Surgical History Abdominal Surgery: No AICD: No Body Medical Devices: TITANIUM PIECE LEFT CHEEK AREA. Cardiac Surgery: No Ear Surgery: No Endocrine Surgery: No Eye Surgery: No Genitourinary Surgery: No Joint Replacement: No Neurologic Surgery: No Oral Surgery: No Pacemaker: No Thoracic Surgery: No Other Surgery: Yes (FACIAL SURGERY) Social History Alcohol Use: Yes (daily) Tobacco Use: No Substance Use: Yes (ALCOHOL ABUSE (CHRONIC) COCAINE ONCE IN AWHILE) Allergies-Medications (Allergen,Severity, Reaction): Coded Allergies: Penicillin (Verified Adverse Reaction, Severe, SYNCOPE, 12/19/16) PT DENIES ANY ALLERGY Reported Meds & Prescriptions Reported Meds & Active Scripts Active Ativan (Lorazepam) 1 Mg Tab 1 Mg PO DAILY PRN Reported Vistaril (Hydroxyzine Pamoate) 50 Mg Cap 50 Mg PO TID Seroquel (Quetiapine Fumarate) 100 Mg Tab 100 Mg PO DAILY Review of Systems Except as stated in HPI: all other systems reviewed are Neg Physical Exam Narrative GENERAL: Well-nourished, well-developed male patient, afebrile. Patient is alert and oriented to person, place, time. Patient has strong smell of alcohol on his breath. SKIN: Focused skin assessment warm/dry. HEAD: Normocephalic. Atraumatic. EYES: No scleral icterus. No injection or drainage. NECK: Supple, trachea midline. No JVD or lymphadenopathy. CARDIOVASCULAR: Regular rate and rhythm without murmurs, gallops, or rubs. RESPIRATORY: Breath sounds equal bilaterally. No accessory muscle use. Lungs sounds are clear to auscultation. GASTROINTESTINAL: Abdomen soft, non-tender, nondistended. MUSCULOSKELETAL: No cyanosis, or edema. PSYCHIATRIC: No delusional thought processes. No hallucinations. Data Data Last Documented VS Vital Signs Date Time Temp Pulse Resp B/P Pulse Ox O2 Delivery O2 Flow Rate FiO2 12/19/16 17:56 100 12/19/16 15:59 97.8 20 137/98 96 Room Air Orders Complete Blood Count With Diff (12/19/16 16:35) Comprehensive Metabolic Panel (12/19/16 16:35) Psych Screen (12/19/16 16:35) Drug Screen, Random Urine (12/19/16 16:35) Alcohol (Ethanol) (12/19/16 16:35) Salicylates (Aspirin) (12/19/16 16:35) Tylenol (Acetaminophen) (12/19/16 16:35) Potassium Chloride (Kcl) (12/19/16 18:00) Labs Laboratory Tests Test 12/19/16 16:42 White Blood Count 13.4 TH/MM3 Red Blood Count 5.80 MIL/MM3 Hemoglobin 17.2 GM/DL Hematocrit 51.0 % Mean Corpuscular Volume 88.0 FL Mean Corpuscular Hemoglobin 29.7 PG Mean Corpuscular Hemoglobin 33.8 % Concent Red Cell Distribution Width 13.9 % Platelet Count 297 TH/MM3 Mean Platelet Volume 6.8 FL Neutrophils (%) (Auto) 72.8 % Lymphocytes (%) (Auto) 18.6 % Monocytes (%) (Auto) 3.9 % Eosinophils (%) (Auto) 3.7 % Basophils (%) (Auto) 1.0 % Neutrophils # (Auto) 9.7 TH/MM3 Lymphocytes # (Auto) 2.5 TH/MM3 Monocytes # (Auto) 0.5 TH/MM3 Eosinophils # (Auto) 0.5 TH/MM3 Basophils # (Auto) 0.1 TH/MM3 CBC Comment DIFF FINAL Differential Comment Sodium Level 138 MEQ/L Potassium Level 3.3 MEQ/L Chloride Level 98 MEQ/L Carbon Dioxide Level 25.0 MEQ/L Anion Gap 15 MEQ/L Blood Urea Nitrogen 9 MG/DL Creatinine 1.03 MG/DL Estimat Glomerular Filtration 77 ML/MIN Rate Random Glucose 104 MG/DL Calcium Level 9.1 MG/DL Total Bilirubin 0.5 MG/DL Aspartate Amino Transf 67 U/L (AST/SGOT) Alanine Aminotransferase 87 U/L (ALT/SGPT) Alkaline Phosphatase 99 U/L Total Protein 8.7 GM/DL Albumin 4.6 GM/DL Salicylates Level LESS THAN 1.7 MG/DL Acetaminophen Level LESS THAN 2.0 MCG/ML Ethyl Alcohol Level 459 MG/DL MDM Medical Decision Making Medical Screen Exam Complete: Yes Emergency Medical Condition: Yes Medical Record Reviewed: Yes Differential Diagnosis Suicidal ideation versus depression versus anxiety versus alcohol abuse versus bipolar disorder versus alcohol-induced mood disorder Narrative Course 51-year-old male presents to the emergency department for psychiatric evaluation. Patient reports suicidal ideation with a plan to "blow my brains out". Patient is intoxicated on exam. Patient is placed under Delgado act due to suicidal ideation. CBC, CMP, alcohol level, urine drug screen, Tylenol level , salicylate level are ordered and pending. CBC shows leukocytosis 13.4. CMP shows hypokalemia of 3.3. Alcohol level is 459. Salicylate level is less than 1.7. Tylenol level is less than 2.0. UDS is pending. Patient is medically cleared for psychiatric screening and disposition. Mental health screening discussed with the patient. Psychiatric screen ordered. Diagnosis Primary Impression: Alcohol abuse with alcohol-induced mood disorder Additional Instructions: Patient is medically cleared for psychiatric screening and disposition. Condition: Stable Laura Pineda SONU Dec 19, 2016 16:42
[2016-12-19 17:06] LABS: AUTOMATED NEUTROPHIL # 9.7 TH/MM3 (1.8-7.7); BASOPHIL # 0.1 TH/MM3 (0-0.2); EOSINOPHIL # 0.5 TH/MM3 (0-0.4); EOSINOPHIL % 3.7 % (0.0-4.0); HEMO FLAGS DIFF FINAL; LYMPH % 18.6 % (9.0-44.0); LYMPHOCYTE # 2.5 TH/MM3 (1.0-4.8); MEAN CORPUSCULAR HEMOGLOBIN 29.7 PG (27.0-34.0); MEAN CORPUSCULAR HGB CONC 33.8 % (32.0-36.0); MONO % 3.9 % (0.0-8.0); NEUT % 72.8 % (16.0-70.0); PLATELET COUNT 297 TH/MM3 (150-450); RED CELL DISTRIBUTION WIDTH 13.9 % (11.6-17.2); WHITE BLOOD COUNT 13.4 TH/MM3 (4.0-11.0)
[2016-12-19 17:20] LABS: ALT (GPT) 87 U/L (12-78); ANION GAP 15 MEQ/L (5-15); AST (GOT) 67 U/L (15-37); BLOOD UREA NITROGEN 9 MG/DL (7-18); CHLORIDE 98 MEQ/L (98-107); GLOMERULAR FILTRATION RATE 77 ML/MIN (>89); POTASSIUM 3.3 MEQ/L (3.5-5.1); SODIUM (NA) 138 MEQ/L (136-145)
[2016-12-19 17:22] LABS: ALKALINE PHOSPHATASE 99 U/L (45-117); TOTAL BILIRUBIN ADULT 0.5 MG/DL (0.2-1.0)
[2016-12-19 17:37] LABS: ACETAMINOPHEN LESS THAN 2.0 MCG/ML (10.0-30.0)
[2016-12-19 17:56] VITALS: PULSE 100
[2016-12-19] MEDS ORDERED: POTASSIUM CHLORIDE 20 MEQ CONTROLLED RELEASE TAB PO ONE (18:00)
[2016-12-19] MEDS ORDERED: LORazepam 1 MG TAB PO PRN (20:00)
[2016-12-19] MEDS ORDERED: LORazepam 2 MG/ML VIAL IV PUSH PRN ×4 (20:00)
[2016-12-19] MEDS ORDERED: FLUMAZENIL 0.5 MG/5 ML VIAL IV PUSH PRN (20:00)
[2016-12-19] MEDS ORDERED: LORazepam 2 MG TAB PO PRN (20:00)
[2016-12-19 20:45] VITALS: BP 132/86; PULSE 92; RESP 18; TEMP 97.7; O2SAT 98
[2016-12-19 22:00] VITALS: BP 110/70; PULSE 99; RESP 18
[2016-12-20 02:37] VITALS: BP 152/88; PULSE 111; RESP 18; O2SAT 96
== END 2016-12-20 05:39 ==
LOC: NEPC 15:56 → NEPJ 12-20 05:39
DX: F10.14 Alcohol abuse with alcohol-induced mood disorder (principal); D72.829 Elevated white blood cell count, unspecified; E87.6 Hypokalemia; Z79.899 Other long term (current) drug therapy; Z86.59 Personal history of other mental and behavioral disorders; Z86.79 Personal history of other diseases of the circulatory system; Z87.19 Personal history of other diseases of the digestive system; Z87.448 Personal history of other diseases of urinary system; Z87.2 Personal history of diseases of the skin and subcutaneous tissue; Z86.69 Personal history of other diseases of the nervous system and sense organs
CPT/HCPCS: 80053; 80307; 85025; 99284

== ENCOUNTER 2017-06-06 18:04 | Emergency (ER) | payer OTHER ==
[~2017-06-06] VITALS: Ht 182.9 cm; Wt 75.0 kg
[2017-06-06 18:32] VITALS: BP 122/87; PULSE 100; RESP 20; TEMP 98.7; O2SAT 95
[2017-06-06] MEDS ORDERED: BUPR100CR PO (18:36)
[2017-06-06] MEDS ORDERED: ARIP2 PO (18:36)
[2017-06-06 19:05] LABS: AUTOMATED NEUTROPHIL # 5.4 TH/MM3 (1.8-7.7); BASOPHIL # 0.1 TH/MM3 (0-0.2); EOSINOPHIL # 0.3 TH/MM3 (0-0.4); EOSINOPHIL % 3.2 % (0.0-4.0); HEMATOCRIT 48.2 % (39.0-51.0); HEMOGLOBIN 16.9 GM/DL (13.0-17.0); LYMPH % 29.1 % (9.0-44.0); LYMPHOCYTE # 2.8 TH/MM3 (1.0-4.8); MEAN CELL VOLUME 86.6 FL (80.0-100.0); MEAN CORPUSCULAR HEMOGLOBIN 30.3 PG (27.0-34.0); MONO % 10.2 % (0.0-8.0); NEUT % 56.5 % (16.0-70.0); PLATELET COUNT 318 TH/MM3 (150-450); RED BLOOD COUNT 5.57 MIL/MM3 (4.50-5.90); RED CELL DISTRIBUTION WIDTH 13.4 % (11.6-17.2); WHITE BLOOD COUNT 9.6 TH/MM3 (4.0-11.0)
--- NOTE | 2017-06-06 19:09 | PD ---
HPI Chief Complaint: Psychiatric Symptoms Time Seen by Provider: 18:33 Travel History International Travel<30 days: No Contact w/Intl Traveler<30days: No Traveled to known affect area: No History of Present Illness HPI Patient is a 51-year-old male with history of bipolar disorder; was brought to the emergency room under Delgado act for evaluation of suicidal thoughts. Patient reports that he did have a few drinks tonight, reports that he got into a verbal argument with someone and felt suicidal afterward. Patient did tell police officers that he had thoughts of using a razor blade to hurt himself. Patient currently contracts for safety. Denies homicidal ideations PFSH Past Medical History Blood Disorders: No Bipolar Disorder: Yes Anxiety: Yes (PANIC DISORDERS) Depression: Yes Cancer: No Cardiovascular Problems: Yes (HTN) Chest Pain: Yes Cerebrovascular Accident: Yes Diabetes: No Diminished Hearing: No Endocrine: No Gastrointestinal Disorders: Yes (hep c) GERD: Yes Genitourinary: Yes Hepatitis: Yes (HEP C) Hypertension: Yes Immune Disorder: No Implanted Vascular Access Dvce: No Insomnia: Yes Kidney Stones: Yes Musculoskeletal: No Neurologic: No Psychiatric: Yes (bipolar disorder) Reproductive: No Respiratory: No Integumentary: Yes Immunizations Current: Yes Migraines: Yes Radiation Therapy: No Renal Failure: No Schizophrenia: Yes Seizures: No Ulcer: Yes Past Surgical History Abdominal Surgery: No AICD: No Body Medical Devices: TITANIUM PIECE LEFT CHEEK AREA. Cardiac Surgery: No Ear Surgery: No Endocrine Surgery: No Eye Surgery: No Genitourinary Surgery: No Joint Replacement: No Neurologic Surgery: No Oral Surgery: No Pacemaker: No Thoracic Surgery: No Other Surgery: Yes (FACIAL SURGERY) Social History Alcohol Use: Yes Tobacco Use: No Substance Use: Yes (ALCOHOL ABUSE (CHRONIC) COCAINE ONCE IN AWHILE) Allergies-Medications (Allergen,Severity, Reaction): Coded Allergies: penicillin G (Unverified Adverse Reaction, Severe, SYNCOPE, 01/19/17) PT DENIES ANY ALLERGY Reported Meds & Prescriptions Reported Meds & Active Scripts Active Reported Abilify (Aripiprazole) 2 Mg Tab Unknown Dose PO DAILY Wellbutrin SR 12 HR (Bupropion HCl) 100 Mg Tab Unknown Dose PO Q12HR Review of Systems General / Constitutional: No: Fever Eyes: No: Visual changes HENT: No: Headaches Cardiovascular: No: Chest Pain or Discomfort Respiratory: No: Shortness of Breath Gastrointestinal: No: Abdominal Pain Genitourinary: No: Dysuria Musculoskeletal: No: Pain Skin: No Rash Neurologic: No: Weakness Psychiatric: Positive: Depression, Suicidal Ideations, Substance Abuse, No: Homicidal Ideation Endocrine: No: Polydipsia Hematologic/Lymphatic: No: Easy Bruising Physical Exam Narrative GENERAL: Mild distress SKIN: Focused skin assessment warm/dry. HEAD: Atraumatic. Normocephalic. EYES: Pupils equal and round. No scleral icterus. No injection or drainage. ENT: No nasal bleeding or discharge. Mucous membranes pink and moist. NECK: Trachea midline. No JVD. CARDIOVASCULAR: Regular rate and rhythm. No murmur appreciated. RESPIRATORY: No accessory muscle use. Clear to auscultation. Breath sounds equal bilaterally. GASTROINTESTINAL: Abdomen soft, non-tender, nondistended. Hepatic and splenic margins not palpable. MUSCULOSKELETAL: No obvious deformities. No clubbing. No cyanosis. No edema. NEUROLOGICAL: Awake and alert. No obvious cranial nerve deficits. Motor grossly within normal limits. Normal speech. PSYCHIATRIC: Flat mood and affect; +SI, -HI Data Data Last Documented VS Vital Signs Date Time Temp Pulse Resp B/P (MAP) Pulse Ox O2 Delivery O2 Flow Rate FiO2 06/06/17 18:32 98.7 100 20 122/87 (99) 95 Orders Orders Complete Blood Count With Diff (06/06/17 18:33) Comprehensive Metabolic Panel (06/06/17 18:33) Psych Screen (06/06/17 18:33) Drug Screen, Random Urine (06/06/17 18:33) Alcohol (Ethanol) (06/06/17 18:33) Salicylates (Aspirin) (06/06/17 18:33) Tylenol (Acetaminophen) (06/06/17 18:33) Labs Laboratory Tests Test 06/06/17 18:45 [facility] Medical Decision Making Medical Screen Exam Complete: Yes Emergency Medical Condition: Yes Medical Record Reviewed: Yes Interpretation(s) Vital Signs Date Time Temp Pulse Resp B/P (MAP) Pulse Ox O2 Delivery O2 Flow Rate FiO2 06/06/17 18:32 98.7 100 20 122/87 (99) 95 Differential Diagnosis Alcohol abuse, adjustment disorder, depression Narrative Course 51 year old male who presents to ER with police officers under a Delgado act as he made suicidal comments to police officers today after he got into an argument with someone. Psychiatric screening labs were ordered. Patient contracts for safety at this time Brigitte Linn DO Jun 06, 2017 19:09
[2017-06-06 19:36] LABS: ACETAMINOPHEN LESS THAN 2.0 MCG/ML (10.0-30.0); ALBUMIN 4.2 GM/DL (3.4-5.0); ALKALINE PHOSPHATASE 75 U/L (45-117); ALT (GPT) 46 U/L (12-78); AST (GOT) 26 U/L (15-37); BICARBONATE 31.9 MEQ/L (21.0-32.0); BLOOD UREA NITROGEN 7 MG/DL (7-18); CALCIUM 8.2 MG/DL (8.5-10.1); CHLORIDE 105 MEQ/L (98-107); CREATININE 1.11 MG/DL (0.60-1.30); GLOMERULAR FILTRATION RATE 70 ML/MIN (>89); GLUCOSE,RANDOM 98 MG/DL (74-106); SODIUM (NA) 145 MEQ/L (136-145); TOTAL BILIRUBIN ADULT 0.3 MG/DL (0.2-1.0); TOTAL PROTEIN 7.9 GM/DL (6.4-8.2)
[2017-06-06] MEDS ORDERED: POTASSIUM CHLORIDE 10 MEQ CONTROLLED RELEASE TAB PO ONE (19:45)
[2017-06-06] MEDS ORDERED: LORazepam 1 MG TAB PO ONE (20:15)
[2017-06-06 23:34] VITALS: BP 110/63; PULSE 95; RESP 17; TEMP 95.8; O2SAT 98
[2017-06-07 03:41] VITALS: BP 126/74; PULSE 89; RESP 17; TEMP 97.6; O2SAT 98
[2017-06-07 08:56] VITALS: BP 169/99; PULSE 107; RESP 22; O2SAT 98
[2017-06-07] MEDS ORDERED: LORazepam 2 MG/ML VIAL IV PUSH PRN ×4 (09:00)
[2017-06-07] MEDS ORDERED: ACETAMINOPHEN 325 MG TAB PO PRN (09:00)
[2017-06-07] MEDS ORDERED: LORazepam 1 MG TAB PO PRN (09:00)
[2017-06-07] MEDS ORDERED: FLUMAZENIL 0.5 MG/5 ML VIAL IV PUSH PRN (09:00)
[2017-06-07] MEDS ORDERED: ONDANSETRON HCL 4 MG/2 ML VIAL IV PUSH PRN (09:00)
[2017-06-07] MEDS ORDERED: LORazepam 2 MG TAB PO PRN (09:00)
--- NOTE | 2017-06-07 12:34 | PD ---
History of Present Illness Chief Complaint: Psychiatric Symptoms Time Seen by Provider: 12:00 Travel History International Travel<30 Days: No Contact w/Intl Traveler<30days: No Known affected area: No Legal Status Legal Status: Delgado Act Delgado Act Signed By: Kirstie Garcia History of Present Illness: 51-year-old male brought in under a Delgado act for alleged suicidal threats. Patient was noted to be highly intoxicated last night. He is no longer intoxicated and denies any suicidal or homicidal ideation, plan or intent. He has no psychotic symptoms and his cognition is intact. He is verbally priya for safety and he is competent to do so. He does state that his PTSD gets worse when he drinks alcohol but does not take responsibility for his significant intoxication last night. He did request and receive Seroquel 50 mg by mouth 1 after informed consent was given. He wants to spend the night here in the emergency department but was told this would be up to nursing staff. PFSH Past Medical History Blood Disorders: No Bipolar Disorder: Yes Anxiety: Yes (PANIC DISORDERS) Depression: Yes Cancer: No Cardiovascular Problems: Yes (HTN) Chest Pain: Yes Cerebrovascular Accident: Yes Diabetes: No Diminished Hearing: No Endocrine: No Gastrointestinal Disorders: Yes (hep c) GERD: Yes Genitourinary: Yes Hepatitis: Yes (HEP C) Hypertension: Yes Immune Disorder: No Implanted Vascular Access Dvce: No Insomnia: Yes Kidney Stones: Yes Musculoskeletal: No Neurologic: No Psychiatric: Yes (bipolar disorder) Reproductive: No Respiratory: No Integumentary: Yes Immunizations Current: Yes Migraines: Yes Radiation Therapy: No Renal Failure: No Schizophrenia: Yes Seizures: No Ulcer: Yes Past Surgical History Abdominal Surgery: No AICD: No Body Medical Devices: TITANIUM PIECE LEFT CHEEK AREA. Cardiac Surgery: No Ear Surgery: No Endocrine Surgery: No Eye Surgery: No Genitourinary Surgery: No Joint Replacement: No Neurologic Surgery: No Oral Surgery: No Pacemaker: No Thoracic Surgery: No Other Surgery: Yes (FACIAL SURGERY) Psychiatric History Psychiatric History Hx Psychiatric Treatment: Patient has an extensive history with [facility] for substance use. Patient reports a documented history of PTSD. However, he shows no significant clinical signs of that disorder at this time. Patient demonstrating no current significant objective clinical evidence of any disorder other than alcohol abuse. History of Inpatient Treatment: Yes Guns or firearms in home: No Social History Hx Alcohol Use: Yes Hx Tobacco Use: No Hx Substance Use: Yes (ALCOHOL ABUSE (CHRONIC) COCAINE ONCE IN AWHILE) Substance Use Type: Alcohol, Crack, Cocaine Other Substances Used: ADMITS TO DRINKING BEER DAILY AND USING COCAINE Hx of Substance Use Treatment: Yes Allergies-Medications (Allergen,Severity, Reaction): Coded Allergies: penicillin G (Unverified Adverse Reaction, Severe, SYNCOPE, 01/19/17) PT DENIES ANY ALLERGY Reported Meds & Prescriptions Reported Meds & Active Scripts Active Reported Abilify (Aripiprazole) 2 Mg Tab Unknown Dose PO DAILY Wellbutrin SR 12 HR (Bupropion HCl) 100 Mg Tab Unknown Dose PO Q12HR Review of Systems Psychiatric: COMPLAINS OF: Anxiety Except as stated in HPI: all other systems reviewed are Neg Mental Status Examination Appearance: Appropriate Consciousness: Alert Orientation: x4 Motor Activity: Normal gait Speech: Unremarkable Language: Adequate Fund of Knowledge: Adequate Attention and Concentration: Adequate Memory: Unremarkable Mood: Appropriate Affect: Appropriate Thought Process & Associations: Intact Thought Content: Appropriate Hallucination Type: None Delusion Type: None Suicidal Ideation: No Suicidal Plan: No Suicidal Intention: No Homicidal Ideation: No Homicidal Plan: No Homicidal Intention: No Insight: Adequate Judgment: Adequate MDM Medical Decision Making Medical Record Reviewed: Yes Assessment/Plan Patient interviewed at bedside. Electronic medical record reviewed. Case discussed with nurse Angelica. Patient does not meet criteria for Delgado act or involuntary psychiatric hospitalization. He was given 1 time dose of by mouth Seroquel per his request. Follow up recommended at [facility] for alcohol abuse. Orders Orders Complete Blood Count With Diff (06/06/17 18:33) Comprehensive Metabolic Panel (06/06/17 18:33) Psych Screen (06/06/17 18:33) Drug Screen, Random Urine (06/06/17 18:33) Alcohol (Ethanol) (06/06/17 18:33) Salicylates (Aspirin) (06/06/17 18:33) Tylenol (Acetaminophen) (06/06/17 18:33) Potassium Chloride (Kcl) (06/06/17 19:45) Lorazepam (Ativan) (06/06/17 20:15) Diet Regular Basic (06/07/17 Breakfast) Alcohol Withdrawal Asmt-Ciwa ONCE (06/07/17 08:53) Ondansetron Inj (Zofran Inj) (06/07/17 09:00) Acetaminophen (Tylenol) (06/07/17 09:00) Flumazenil Inj (Romazicon Inj) (06/07/17 09:00) Lorazepam (Ativan) (06/07/17 09:00) Lorazepam Inj (Ativan Inj) (06/07/17 09:00) Lorazepam (Ativan) (06/07/17 09:00) Lorazepam Inj (Ativan Inj) (06/07/17 09:00) Lorazepam Inj (Ativan Inj) (06/07/17 09:00) Lorazepam Inj (Ativan Inj) (06/07/17 09:00) Results Vital Signs Date Time Temp Pulse Resp B/P (MAP) Pulse Ox O2 Delivery O2 Flow Rate FiO2 06/07/17 08:56 107 22 169/99 (122) 98 06/07/17 03:41 97.6 89 17 126/74 (91) 98 06/06/17 23:34 95.8 95 17 110/63 (79) 98 Room Air 06/06/17 18:32 98.7 100 20 122/87 (99) 95 Laboratory Tests Test 06/06/17 18:45 White Blood Count 9.6 Red Blood Count 5.57 Hemoglobin 16.9 Hematocrit 48.2 Mean Corpuscular Volume 86.6 Mean Corpuscular Hemoglobin 30.3 Mean Corpuscular Hemoglobin Concent 35.0 Red Cell Distribution Width 13.4 Platelet Count 318 Mean Platelet Volume 7.0 Neutrophils (%) (Auto) 56.5 Lymphocytes (%) (Auto) 29.1 Monocytes (%) (Auto) 10.2 Eosinophils (%) (Auto) 3.2 Basophils (%) (Auto) 1.0 Neutrophils # (Auto) 5.4 Lymphocytes # (Auto) 2.8 Monocytes # (Auto) 1.0 Eosinophils # (Auto) 0.3 Basophils # (Auto) 0.1 CBC Comment DIFF FINAL Differential Comment Blood Urea Nitrogen 7 Creatinine 1.11 Random Glucose 98 Total Protein 7.9 Albumin 4.2 Calcium Level 8.2 Alkaline Phosphatase 75 Aspartate Amino Transf (AST/SGOT) 26 Alanine Aminotransferase (ALT/SGPT) 46 Total Bilirubin 0.3 Sodium Level 145 Potassium Level 3.4 Chloride Level 105 Carbon Dioxide Level 31.9 Anion Gap 8 Estimat Glomerular Filtration Rate 70 Salicylates Level LESS THAN 1.7 Urine Opiates Screen NEG Acetaminophen Level LESS THAN 2.0 Urine Barbiturates Screen NEG Urine Amphetamines Screen NEG Urine Benzodiazepines Screen NEG Urine Cocaine Screen NEG Urine Cannabinoids Screen NEG Ethyl Alcohol Level 336 Diagnosis Primary Impression: Alcohol abuse Ritchie Cruz MD Jun 07, 2017 12:34
[2017-06-07] MEDS ORDERED: QUEtiapine FUMARATE 25 MG TAB PO ONE (12:45)
--- NOTE | 2017-06-07 13:48 | PD ---
Physical Exam Date Seen by Provider: Jun 07, 2017 Time Seen by Provider: 13:46 Narrative For full history and physical examination please see previous notes. Data Data Last Documented VS Vital Signs Date Time Temp Pulse Resp B/P (MAP) Pulse Ox O2 Delivery O2 Flow Rate FiO2 06/07/17 08:56 107 22 169/99 (122) 98 06/07/17 03:41 97.6 06/06/17 23:34 Room Air Orders Orders Complete Blood Count With Diff (06/06/17 18:33) Comprehensive Metabolic Panel (06/06/17 18:33) Psych Screen (06/06/17 18:33) Drug Screen, Random Urine (06/06/17 18:33) Alcohol (Ethanol) (06/06/17 18:33) Salicylates (Aspirin) (06/06/17 18:33) Tylenol (Acetaminophen) (06/06/17 18:33) Potassium Chloride (Kcl) (06/06/17 19:45) Lorazepam (Ativan) (06/06/17 20:15) Diet Regular Basic (06/07/17 Breakfast) Alcohol Withdrawal Asmt-Ciwa ONCE (06/07/17 08:53) Ondansetron Inj (Zofran Inj) (06/07/17 09:00) Acetaminophen (Tylenol) (06/07/17 09:00) Flumazenil Inj (Romazicon Inj) (06/07/17 09:00) Lorazepam (Ativan) (06/07/17 09:00) Lorazepam Inj (Ativan Inj) (06/07/17 09:00) Lorazepam (Ativan) (06/07/17 09:00) Lorazepam Inj (Ativan Inj) (06/07/17 09:00) Lorazepam Inj (Ativan Inj) (06/07/17 09:00) Lorazepam Inj (Ativan Inj) (06/07/17 09:00) Quetiapine (Seroquel) (06/07/17 12:45) Diet Regular Basic (06/07/17 Lunch) Ed Discharge Order (06/07/17 13:45) Labs Laboratory Tests Test 06/06/17 18:45 White Blood Count 9.6 TH/MM3 Red Blood Count 5.57 MIL/MM3 Hemoglobin 16.9 GM/DL Hematocrit 48.2 % Mean Corpuscular Volume 86.6 FL Mean Corpuscular Hemoglobin 30.3 PG Mean Corpuscular Hemoglobin Concent 35.0 % Red Cell Distribution Width 13.4 % Platelet Count 318 TH/MM3 Mean Platelet Volume 7.0 FL Neutrophils (%) (Auto) 56.5 % Lymphocytes (%) (Auto) 29.1 % Monocytes (%) (Auto) 10.2 % Eosinophils (%) (Auto) 3.2 % Basophils (%) (Auto) 1.0 % Neutrophils # (Auto) 5.4 TH/MM3 Lymphocytes # (Auto) 2.8 TH/MM3 Monocytes # (Auto) 1.0 TH/MM3 Eosinophils # (Auto) 0.3 TH/MM3 Basophils # (Auto) 0.1 TH/MM3 CBC Comment DIFF FINAL Differential Comment Blood Urea Nitrogen 7 MG/DL Creatinine 1.11 MG/DL Random Glucose 98 MG/DL Total Protein 7.9 GM/DL Albumin 4.2 GM/DL Calcium Level 8.2 MG/DL Alkaline Phosphatase 75 U/L Aspartate Amino Transf (AST/SGOT) 26 U/L Alanine Aminotransferase (ALT/SGPT) 46 U/L Total Bilirubin 0.3 MG/DL Sodium Level 145 MEQ/L Potassium Level 3.4 MEQ/L Chloride Level 105 MEQ/L Carbon Dioxide Level 31.9 MEQ/L Anion Gap 8 MEQ/L Estimat Glomerular Filtration Rate 70 ML/MIN Salicylates Level LESS THAN 1.7 MG/DL Urine Opiates Screen NEG Acetaminophen Level LESS THAN 2.0 MCG/ML Urine Barbiturates Screen NEG Urine Amphetamines Screen NEG Urine Benzodiazepines Screen NEG Urine Cocaine Screen NEG Urine Cannabinoids Screen NEG Ethyl Alcohol Level 336 MG/DL [facility] Medical Record Reviewed: Yes Supervised Visit with ELEONORA: No Narrative Course Patient is a 51-year-old male brought in under a [place] act for alleged suicidal threats. Per psychiatry notes "Patient was noted to be highly intoxicated last night. He is no longer intoxicated and denies any suicidal or homicidal ideation, plan or intent. He has no psychotic symptoms and his cognition is intact. He is verbally priya for safety and he is competent to do so. He does state that his PTSD gets worse when he drinks alcohol but does not take responsibility for his significant intoxication last night". Patient is medically cleared for discharge. Delgado act was lifted. Diagnosis Primary Impression: Alcohol abuse Referrals: [facility] Patient Instructions: Abuse of Alcohol (ED), General Instructions Additional Instruction: Follow-up at [facility] Avoid excessive intake of alcohol Return to emergency department for any new or worsening symptoms Med/Other Pt SpecificInfo: No Change to Meds Disposition: 01 DISCHARGE HOME Condition: Stable Renetta Graham Jun 07, 2017 13:48
== END 2017-06-07 15:19 | disposition home or self-care (01) ==
LOC: NEPD 18:04 → NEPJ 06-07 15:19
DX: F10.10 Alcohol abuse, uncomplicated (principal); R45.851 Suicidal ideations; F43.10 Post-traumatic stress disorder, unspecified; F31.9 Bipolar disorder, unspecified; I10 Essential (primary) hypertension; K21.9 Gastro-esophageal reflux disease without esophagitis; F20.9 Schizophrenia, unspecified; Z86.73 Personal history of transient ischemic attack (TIA), and cerebral infarction without residual deficits; Z86.19 Personal history of other infectious and parasitic diseases
CPT/HCPCS: 80053; 80307; 85025; 99284

== ENCOUNTER 2017-08-08 01:46 | Emergency (ER) | payer SELFPAY ==
[~2017-08-08] VITALS: Ht 182.9 cm; Wt 79.5 kg
[~2017-08-08 01:46] MED LIST changes: +ARIP2 PO; +BUPR100CR PO; -LORA-474 PO; -SERO100T PO; -VIST50CA PO
[2017-08-08 01:57] VITALS: BP 141/94; PULSE 98; RESP 16; TEMP 97.8; O2SAT 97
--- NOTE | 2017-08-08 03:03 | PD ---
HPI Chief Complaint: Anxiety Time Seen by Provider: 02:26 Travel History International Travel<30 days: No Contact w/Intl Traveler<30days: No Traveled to known affect area: No History of Present Illness HPI 51-year-old white male presents emergency department stating that he has not slept in 15 days. He states that he does drink alcohol, smoke crack cocaine on occasion. He states that he is concerned that he will become homeless in the next 2 weeks when he cannot pay his rent. 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 He is attempting to buy a boat for $400 to stay on. He denies any suicidal or homicidal ideation. He states that he has nowhere to go and would like to get help. History Past Medical Histgory Narrative Medical Substance abuse, homelessness, depression Tetanus Vaccination: > 5 Years Hx Cancer: No Hx Radiation Therapy: No Past Surgical History Surgical History: No Previous Surgery Social History Alcohol Use: Yes Tobacco Use: No Allergies-Medications (Allergen,Severity, Reaction): Coded Allergies: penicillin G (Unverified Adverse Reaction, Severe, SYNCOPE, 08/08/17) PT DENIES ANY ALLERGY Reported Meds & Prescriptions Reported Meds & Active Scripts Active Reported Abilify (Aripiprazole) 2 Mg Tab Unknown Dose PO DAILY Wellbutrin SR 12 HR (Bupropion HCl) 100 Mg Tab Unknown Dose PO Q12HR Review of Systems Except as stated in HPI: all other systems reviewed are Neg Physical Exam Narrative GENERAL: Well-nourished, well-developed patient. SKIN: Warm and dry. HEAD: Normocephalic and atraumatic. EYES: No scleral icterus. No injection or drainage. ENT: No nasal drainage noted. Mucous membranes pink. Airway patent. NECK: Supple, trachea midline. Moves head freely without obvious discomfort. CARDIOVASCULAR: Regular rate and rhythm without murmurs, gallops, or rubs. RESPIRATORY: Breath sounds equal bilaterally. No accessory muscle use. GASTROINTESTINAL: Abdomen soft, non-tender, nondistended. EXTREMITIES: No cyanosis or edema. BACK: Nontender without obvious deformity. No CVA tenderness. NEURO: Patient is alert and oriented. no sensorimotor deficits. Nonfocal. Normal speech. PSYCH: No delusions. No auditory or visual hallucinations. Data Data Last Documented VS Vital Signs Date Time Temp Pulse Resp B/P (MAP) Pulse Ox O2 Delivery O2 Flow Rate FiO2 08/08/17 01:57 97.8 98 16 141/94 (110) 97 MDM Medical Screen Exam Complete: Yes Emergency Medical Condition: No Differential Diagnosis MDM: High Differential diagnoses: Schizophrenia, schizoaffective disorder, bipolar, anxiety, depression, adjustment reaction, mood disorder NOS, ODD, depressive disorder NOS, dementia, dementia with agitation, psychosis NOS, substance induced mood disorder, DMDD, Asperger syndrome, infection,electrolyte abnormality, malingering. Narrative Course A medical screening exam was performed: At the time of evaluation the presenting medical condition was determined not to be of an emergent nature. The patient was given the option of receiving additional care, but declined. Patient was given options for additional community resources from which to obtain care. The Patient Has Been advised to seek medical attention for their presenting complaint. The patient has been advised to return to the ER at any time if an emergent condition develops. Primary Impression: Encounter for medical screening examination Condition: Yosef Carlisle Aug 08, 2017 03:02
== END 2017-08-08 03:03 | disposition left against medical advice (07) ==
LOC: NEPD 01:46
DX: F41.9 Anxiety disorder, unspecified (principal)
CPT/HCPCS: 99281

== ENCOUNTER 2017-08-31 20:43 | Emergency (ER) | payer OTHER ==
[~2017-08-31] VITALS: Ht 167.6 cm; Wt 70.0 kg
[2017-08-31 21:12] VITALS: BP 173/118; PULSE 116; RESP 16; TEMP 98.7; O2SAT 98
--- NOTE | 2017-08-31 21:12 | PD ---
HPI Chief Complaint: Psychiatric Time Seen by Provider: 21:06 Travel History International Travel<30 days: No Contact w/Intl Traveler<30days: No Traveled to known affect area: No History of Present Illness HPI 51-year-old male was Delgado acted and brought in for evaluation. Patient was feeling suicidal today. Patient has history of schizophrenia, bipolar disorder and depression. Patient also has history hypertension. Patient states that he has not taken his medications recently. Patient states that he has been abusing cocaine and alcohol recently. Patient denies any headache. Patient denies any chest pain or shortness of breath. Patient denies abdominal pain. Patient denies any focal weakness or numbness of the extremity. PFSH Past Medical History Blood Disorders: No Bipolar Disorder: Yes Anxiety: Yes (PANIC DISORDERS) Depression: Yes Cancer: No Cardiovascular Problems: Yes (HTN) Chest Pain: Yes Cerebrovascular Accident: Yes Diabetes: No Diminished Hearing: No Endocrine: No Gastrointestinal Disorders: Yes (hep c) GERD: Yes Genitourinary: Yes Hepatitis: Yes (HEP C) Hypertension: Yes Immune Disorder: No Implanted Vascular Access Dvce: No Insomnia: Yes Kidney Stones: Yes Musculoskeletal: No Neurologic: No Psychiatric: Yes (bipolar disorder) Reproductive: No Respiratory: No Integumentary: Yes Immunizations Current: Yes Migraines: Yes Radiation Therapy: No Renal Failure: No Schizophrenia: Yes Seizures: No Ulcer: Yes Past Surgical History Abdominal Surgery: No AICD: No Body Medical Devices: TITANIUM PIECE LEFT CHEEK AREA. Cardiac Surgery: No Ear Surgery: No Endocrine Surgery: No Eye Surgery: No Genitourinary Surgery: No Joint Replacement: No Neurologic Surgery: No Oral Surgery: No Pacemaker: No Thoracic Surgery: No Other Surgery: Yes (FACIAL SURGERY) Social History Alcohol Use: Yes Tobacco Use: No Substance Use: Yes (ALCOHOL ABUSE (CHRONIC) COCAINE ONCE IN AWHILE) Allergies-Medications (Allergen,Severity, Reaction): Coded Allergies: penicillin G (Unverified Adverse Reaction, Severe, SYNCOPE, 08/08/17) PT DENIES ANY ALLERGY Reported Meds & Prescriptions Reported Meds & Active Scripts Active Reported Abilify (Aripiprazole) 2 Mg Tab Unknown Dose PO DAILY Wellbutrin SR 12 HR (Bupropion HCl) 100 Mg Tab Unknown Dose PO Q12HR Review of Systems General / Constitutional: No: Fever Eyes: No: Visual changes HENT: No: Headaches Cardiovascular: No: Chest Pain or Discomfort Respiratory: No: Shortness of Breath Gastrointestinal: No: Abdominal Pain Genitourinary: No: Dysuria Musculoskeletal: No: Pain Skin: No Rash Neurologic: No: Weakness Psychiatric: No: Depression Endocrine: No: Polydipsia Hematologic/Lymphatic: No: Easy Bruising Physical Exam Narrative GENERAL: Well-nourished, well-developed patient. SKIN: Focused skin assessment warm/dry. HEAD: Normocephalic. EYES: No scleral icterus. No injection or drainage. NECK: Supple, trachea midline. No JVD or lymphadenopathy. CARDIOVASCULAR: Regular rate and rhythm without murmurs, gallops, or rubs. RESPIRATORY: Breath sounds equal bilaterally. No accessory muscle use. GASTROINTESTINAL: Abdomen soft, non-tender, nondistended. MUSCULOSKELETAL: No cyanosis, or edema. BACK: Nontender without obvious deformity. No CVA tenderness. Neurologic exam normal. Data Data Last Documented VS Vital Signs Date Time Temp Pulse Resp B/P (MAP) Pulse Ox O2 Delivery O2 Flow Rate FiO2 08/31/17 21:12 98.7 116 16 173/118 (136) 98 Orders Orders Complete Blood Count With Diff (08/31/17 21:06) Comprehensive Metabolic Panel (08/31/17 21:06) Thyroid Stimulating Hormone (08/31/17 21:06) Psych Screen (08/31/17 21:06) Drug Screen, Random Urine (08/31/17 21:06) Alcohol (Ethanol) (08/31/17 21:06) Lorazepam Inj (Ativan Inj) (08/31/17 21:30) Ondansetron Inj (Zofran Inj) (08/31/17 21:30) Promethazine Inj (Phenergan Inj) (08/31/17 21:30) Ondansetron Odt (Zofran Odt) (08/31/17 22:00) Lorazepam Inj (Ativan Inj) (08/31/17 22:15) Labs Laboratory Tests Test 08/31/17 21:15 08/31/17 22:00 White Blood Count 19.5 TH/MM3 Red Blood Count 5.52 MIL/MM3 Hemoglobin 17.3 GM/DL Hematocrit 49.6 % Mean Corpuscular Volume 90.0 FL Mean Corpuscular Hemoglobin 31.4 PG Mean Corpuscular Hemoglobin Concent 34.9 % Red Cell Distribution Width 15.3 % Platelet Count 318 TH/MM3 Mean Platelet Volume 7.4 FL Neutrophils (%) (Auto) 82.7 % Lymphocytes (%) (Auto) 9.4 % Monocytes (%) (Auto) 6.2 % Eosinophils (%) (Auto) 0.9 % Basophils (%) (Auto) 0.8 % Neutrophils # (Auto) 16.1 TH/MM3 Lymphocytes # (Auto) 1.8 TH/MM3 Monocytes # (Auto) 1.2 TH/MM3 Eosinophils # (Auto) 0.2 TH/MM3 Basophils # (Auto) 0.2 TH/MM3 CBC Comment DIFF FINAL Differential Comment Blood Urea Nitrogen 10 MG/DL Creatinine 1.18 MG/DL Random Glucose 108 MG/DL Total Protein 8.9 GM/DL Albumin 4.5 GM/DL Calcium Level 9.2 MG/DL Alkaline Phosphatase 98 U/L Aspartate Amino Transf (AST/SGOT) 48 U/L Alanine Aminotransferase (ALT/SGPT) 65 U/L Total Bilirubin 0.8 MG/DL Sodium Level 132 MEQ/L Potassium Level 3.6 MEQ/L Chloride Level 95 MEQ/L Carbon Dioxide Level 25.6 MEQ/L Anion Gap 11 MEQ/L Estimat Glomerular Filtration Rate 66 ML/MIN Thyroid Stimulating Hormone 3rd Gen 1.030 uIU/ML Ethyl Alcohol Level 15 MG/DL Urine Opiates Screen NEG Urine Barbiturates Screen NEG Urine Amphetamines Screen NEG Urine Benzodiazepines Screen NEG Urine Cocaine Screen POS Urine Cannabinoids Screen NEG MDM Medical Decision Making Medical Screen Exam Complete: Yes Emergency Medical Condition: Yes Interpretation(s) 23:04 PM. CBC WBC 19.5. 82 neutrophil. Sodium 132. GFR 66. AST 48. Alcohol 15. Urine drug screen positive for cocaine. Differential Diagnosis Differential diagnosis including depression, suicidal, drug-induced mood disorder, schizophrenia. Narrative Course 51-year-old male was Delgado acted for suicidal ideation. Patient has history of schizophrenia, bipolar disorder, depression. Patient has not taken his medication recently. History of alcohol and cocaine abuse. Julian Jose MD Aug 31, 2017 21:12
[2017-08-31] MEDS ORDERED: ONDANSETRON HCL 4 MG/2 ML VIAL IV PUSH ONE (21:30)
[2017-08-31] MEDS ORDERED: PROMETHAZINE INJ 25 MG/ML VIAL IM ONE (21:30)
[2017-08-31] MEDS ORDERED: LORazepam 2 MG/ML VIAL IM ONE ×2 (21:30→22:15)
[2017-08-31 21:48] LABS: AUTOMATED NEUTROPHIL # 16.1 TH/MM3 (1.8-7.7); BASOPHIL # 0.2 TH/MM3 (0-0.2); BASOPHIL % 0.8 % (0.0-2.0); EOSINOPHIL # 0.2 TH/MM3 (0-0.4); EOSINOPHIL % 0.9 % (0.0-4.0); HEMATOCRIT 49.6 % (39.0-51.0); HEMOGLOBIN 17.3 GM/DL (13.0-17.0); LYMPH % 9.4 % (9.0-44.0); LYMPHOCYTE # 1.8 TH/MM3 (1.0-4.8); MEAN CORPUSCULAR HEMOGLOBIN 31.4 PG (27.0-34.0); MEAN CORPUSCULAR HGB CONC 34.9 % (32.0-36.0); MEAN PLATELET VOLUME 7.4 FL (7.0-11.0); MONO % 6.2 % (0.0-8.0); MONOCYTE # 1.2 TH/MM3 (0-0.9); NEUT % 82.7 % (16.0-70.0); PLATELET COUNT 318 TH/MM3 (150-450); RED BLOOD COUNT 5.52 MIL/MM3 (4.50-5.90); RED CELL DISTRIBUTION WIDTH 15.3 % (11.6-17.2); WHITE BLOOD COUNT 19.5 TH/MM3 (4.0-11.0)
[2017-08-31] MEDS ORDERED: ONDANSETRON ODT 4 MG TAB PO ONE (22:00)
[2017-08-31 22:04] LABS: ALBUMIN 4.5 GM/DL (3.4-5.0); AST (GOT) 48 U/L (15-37); BICARBONATE 25.6 MEQ/L (21.0-32.0); BLOOD UREA NITROGEN 10 MG/DL (7-18); CALCIUM 9.2 MG/DL (8.5-10.1); CHLORIDE 95 MEQ/L (98-107); CREATININE 1.18 MG/DL (0.60-1.30); GLOMERULAR FILTRATION RATE 66 ML/MIN (>89); GLUCOSE,RANDOM 108 MG/DL (74-106); SODIUM (NA) 132 MEQ/L (136-145)
[2017-08-31 22:05] LABS: ALT (GPT) 65 U/L (12-78)
[2017-08-31 22:15] LABS: ALKALINE PHOSPHATASE 98 U/L (45-117); TOTAL BILIRUBIN ADULT 0.8 MG/DL (0.2-1.0); TOTAL PROTEIN 8.9 GM/DL (6.4-8.2)
[2017-09-01] MEDS ORDERED: LORazepam 2 MG TAB PO PRN (00:30)
[2017-09-01] MEDS ORDERED: LORazepam 2 MG/ML VIAL IV PUSH PRN ×4 (00:30)
[2017-09-01] MEDS ORDERED: FLUMAZENIL 0.5 MG/5 ML VIAL IV PUSH PRN (00:30)
[2017-09-01] MEDS ORDERED: LORazepam 1 MG TAB PO PRN (00:30)
[2017-09-01 07:15] VITALS: BP 168/89; PULSE 90; RESP 20; O2SAT 96
--- NOTE | 2017-09-01 09:04 | PD ---
Data Data Last Documented VS Vital Signs Date Time Temp Pulse Resp B/P (MAP) Pulse Ox O2 Delivery O2 Flow Rate FiO2 08/31/17 21:12 98.7 116 16 173/118 (136) 98 Orders Orders Complete Blood Count With Diff (08/31/17 21:06) Comprehensive Metabolic Panel (08/31/17 21:06) Thyroid Stimulating Hormone (08/31/17 21:06) Psych Screen (08/31/17 21:06) Drug Screen, Random Urine (08/31/17 21:06) Alcohol (Ethanol) (08/31/17 21:06) Lorazepam Inj (Ativan Inj) (08/31/17 21:30) Ondansetron Inj (Zofran Inj) (08/31/17 21:30) Promethazine Inj (Phenergan Inj) (08/31/17 21:30) Ondansetron Odt (Zofran Odt) (08/31/17 22:00) Lorazepam Inj (Ativan Inj) (08/31/17 22:15) Alcohol Withdrawal Asmt-Ciwa ONCE (09/01/17 00:18) Flumazenil Inj (Romazicon Inj) (09/01/17 00:30) Lorazepam (Ativan) (09/01/17 00:30) Lorazepam Inj (Ativan Inj) (09/01/17 00:30) Lorazepam (Ativan) (09/01/17 00:30) Lorazepam Inj (Ativan Inj) (09/01/17 00:30) Lorazepam Inj (Ativan Inj) (09/01/17 00:30) Lorazepam Inj (Ativan Inj) (09/01/17 00:30) Diet Regular Basic (09/01/17 Breakfast) Ed Discharge Order (09/01/17 09:00) Labs Laboratory Tests Test 08/31/17 21:15 08/31/17 22:00 White Blood Count 19.5 TH/MM3 Red Blood Count 5.52 MIL/MM3 Hemoglobin 17.3 GM/DL Hematocrit 49.6 % Mean Corpuscular Volume 90.0 FL Mean Corpuscular Hemoglobin 31.4 PG Mean Corpuscular Hemoglobin Concent 34.9 % Red Cell Distribution Width 15.3 % Platelet Count 318 TH/MM3 Mean Platelet Volume 7.4 FL Neutrophils (%) (Auto) 82.7 % Lymphocytes (%) (Auto) 9.4 % Monocytes (%) (Auto) 6.2 % Eosinophils (%) (Auto) 0.9 % Basophils (%) (Auto) 0.8 % Neutrophils # (Auto) 16.1 TH/MM3 Lymphocytes # (Auto) 1.8 TH/MM3 Monocytes # (Auto) 1.2 TH/MM3 Eosinophils # (Auto) 0.2 TH/MM3 Basophils # (Auto) 0.2 TH/MM3 CBC Comment DIFF FINAL Differential Comment Blood Urea Nitrogen 10 MG/DL Creatinine 1.18 MG/DL Random Glucose 108 MG/DL Total Protein 8.9 GM/DL Albumin 4.5 GM/DL Calcium Level 9.2 MG/DL Alkaline Phosphatase 98 U/L Aspartate Amino Transf (AST/SGOT) 48 U/L Alanine Aminotransferase (ALT/SGPT) 65 U/L Total Bilirubin 0.8 MG/DL Sodium Level 132 MEQ/L Potassium Level 3.6 MEQ/L Chloride Level 95 MEQ/L Carbon Dioxide Level 25.6 MEQ/L Anion Gap 11 MEQ/L Estimat Glomerular Filtration Rate 66 ML/MIN Thyroid Stimulating Hormone 3rd Gen 1.030 uIU/ML Ethyl Alcohol Level 15 MG/DL Urine Opiates Screen NEG Urine Barbiturates Screen NEG Urine Amphetamines Screen NEG Urine Benzodiazepines Screen NEG Urine Cocaine Screen POS Urine Cannabinoids Screen NEG MDM Supervised Visit with ELEONORA: No Narrative Course Patient medically clear, seen by Dr. Wilkerson, recomend discharge. Diagnosis Primary Impression: Alcohol abuse with alcohol-induced mood disorder Referrals: [facility] Patient Instructions: General Instructions Med/Other Pt SpecificInfo: No Change to Meds Disposition: 01 DISCHARGE HOME Condition: Rolf Abarca MD Sep 01, 2017 09:04
[2017-09-01 09:34] VITALS: BP 170/92
--- NOTE | 2017-09-01 12:03 | PD.PSY.CON ---
Provisional Diagnosis Admission Date [place] I. Alcohol-induced mood disorder, alcohol use disorder, history of bipolar disorder and PTSD [place] II. Unspecified personality disorder [place] III. Hypertension History of Present Illness Service Psychiatry Consult Requested By ER Reason for Consult Psychiatry Primary Care Physician Unknown HPI Patient was seen this morning at 9:30 AM the patient is [id number] man, well known by this therapist, homeless, unemployed, with psychiatric history of alcohol and cocaine use disorder, alcohol-induced mood disorder, bipolar disorder, PTSD, multiple ER visits due to alcohol related issues, medical history hypertension, who was Delgado acted and brought in for evaluation. Patient was feeling suicidal today. Patient states that he has not taken his medications recently. Patient states that he has been abusing cocaine and alcohol recently. Patient denies any headache. Patient denies any chest pain or shortness of breath. Patient denies abdominal pain. Patient denies any focal weakness or numbness of the extremity. Psychiatric evaluation today the patient does report feeling depressed, he says that he has been using alcohol and cocaine every day to fight his depression. The patient says that he is committed to go to a detox and to a long-term rehabilitation program. At this moment he denies suicidal or homicidal ideation, he denies visual and auditory hallucinations. Patient is fully oriented 3, logical, coherent and relevant. No symptomatology of withdrawal present. Review of Systems Constitutional: DENIES: Diaphoretic episodes, Fatigue, Fever, Weight gain, Weight loss, Chills, Dizziness, Change in appetite, Night Sweats Endocrine: DENIES: Heat/cold intolerance, Polydipsia, Polyuria, Polyphagia Eyes: DENIES: Blurred vision, Diplopia, Eye inflammation, Eye pain, Vision loss , Photosensitivity, Double Vision Ears, nose, mouth, throat: DENIES: Tinnitus, Hearing loss, Vertigo, Nasal discharge, Oral lesions, Throat pain, Hoarseness, Ear Pain, Running Nose, Epistaxis, Sinus Pain, Toothache, Odynophagia Respiratory: DENIES: Apneas, Cough, Snoring, Wheezing, Hemoptysis, Sputum production, Shortness of breath Cardiovascular: DENIES: Chest pain, Palpitations, Syncope, Dyspnea on Exertion , PND, Lower Extremity Edema, Orthopnea, Claudication Gastrointestinal: DENIES: Abdominal pain, Black stools, Bloody stools, Constipation, Diarrhea, Nausea, Vomiting, Difficulty Swallowing, Anorexia Genitourinary: DENIES: Sexual dysfunction, Urinary frequency, Urinary incontinence, Urgency, Hematuria, Dysuria, Nocturia, Penile Discharge, Testicular Pain, Testicular Swelling Musculoskeletal: DENIES: Joint pain, Muscle aches, Stiffness, Joint Swelling, Back pain, Neck pain Integumentary: DENIES: Abnormal pigmentation, Nail changes, Pruritus, Rash Hematologic/lymphatic: DENIES: Bruising, Lymphadenopathy Immunologic/allergic: DENIES: Eczema, Urticaria Neurologic: DENIES: Abnormal gait, Headache, Localized weakness, Paresthesias, Seizures, Speech Problems, Tremor, Poor Balance Psychiatric: DENIES: Anxiety, Confusion, Mood changes, Depression, Hallucinations, Agitation, Suicidal Ideation, Homicidal Ideation, Delusions Past Family Social History Coded Allergies: penicillin G (Unverified Adverse Reaction, Severe, SYNCOPE, 08/08/17) PT DENIES ANY ALLERGY Reported Medications Aripiprazole (Abilify) 2 Mg Tab, PO DAILY, TAB 0 Refills 06/06/17 Bupropion HCl ER 12 HR (Wellbutrin SR 12 HR) 100 Mg Tab, PO Q12HR for Control Depression, TAB 0 Refills 06/06/17 Current Medications Medications (Trade) Dose Ordered Sig/Haris Route Start Time Stop Time Status Last Admin (Romazicon Inj) 0.2 mg Q1M PRN IV PUSH 09/01/17 00:30 (Ativan) 1 mg Q4H PRN PO 09/01/17 00:30 (Ativan Inj) 1 mg Q4H PRN IV PUSH 09/01/17 00:30 (Ativan) 2 mg Q2H PRN PO 09/01/17 00:30 (Ativan Inj) 2 mg Q2H PRN IV PUSH 09/01/17 00:30 (Ativan Inj) 2 mg Q1H PRN IV PUSH 09/01/17 00:30 (Ativan Inj) 2 mg Q15M PRN IV PUSH 09/01/17 00:30 Social History Patient was born and raised in [place], he is homeless, single, unemployed Patient's Strengths (min. 2) Verbal Physical Exam Vital Signs Vital Signs Date Time Temp Pulse Resp B/P (MAP) Pulse Ox O2 Delivery O2 Flow Rate FiO2 09/01/17 09:34 89 20 170/92 (118) 97 08/31/17 21:12 98.7 Lab Results Test 3/27/18 21:15 08/31/17 22:00 White Blood Count 19.5 TH/MM3 Red Blood Count 5.52 MIL/MM3 Hemoglobin 17.3 GM/DL Hematocrit 49.6 % Mean Corpuscular Volume 90.0 FL Mean Corpuscular Hemoglobin 31.4 PG Mean Corpuscular Hemoglobin Concent 34.9 % Red Cell Distribution Width 15.3 % Platelet Count 318 TH/MM3 Mean Platelet Volume 7.4 FL Neutrophils (%) (Auto) 82.7 % Lymphocytes (%) (Auto) 9.4 % Monocytes (%) (Auto) 6.2 % Eosinophils (%) (Auto) 0.9 % Basophils (%) (Auto) 0.8 % Neutrophils # (Auto) 16.1 TH/MM3 Lymphocytes # (Auto) 1.8 TH/MM3 Monocytes # (Auto) 1.2 TH/MM3 Eosinophils # (Auto) 0.2 TH/MM3 Basophils # (Auto) 0.2 TH/MM3 CBC Comment DIFF FINAL Differential Comment Blood Urea Nitrogen 10 MG/DL Creatinine 1.18 MG/DL Random Glucose 108 MG/DL Total Protein 8.9 GM/DL Albumin 4.5 GM/DL Calcium Level 9.2 MG/DL Alkaline Phosphatase 98 U/L Aspartate Amino Transf (AST/SGOT) 48 U/L Alanine Aminotransferase (ALT/SGPT) 65 U/L Total Bilirubin 0.8 MG/DL Sodium Level 132 MEQ/L Potassium Level 3.6 MEQ/L Chloride Level 95 MEQ/L Carbon Dioxide Level 25.6 MEQ/L Anion Gap 11 MEQ/L Estimat Glomerular Filtration Rate 66 ML/MIN Thyroid Stimulating Hormone 3rd Gen 1.030 uIU/ML Ethyl Alcohol Level 15 MG/DL Urine Opiates Screen NEG Urine Barbiturates Screen NEG Urine Amphetamines Screen NEG Urine Benzodiazepines Screen NEG Urine Cocaine Screen POS Urine Cannabinoids Screen NEG Mental Status Examination Appearance: Appropriate Consciousness: Alert Orientation: x4 Motor Activity: Normal gait Speech: Unremarkable Language: Adequate Fund of Knowledge: Adequate Attention and Concentration: Adequate Memory: Unremarkable Mood: Appropriate Affect: Appropriate Thought Process & Associations: Intact Thought Content: Appropriate Hallucination Type: None Delusion Type: None Suicidal Ideation: No Suicidal Plan: No Suicidal Intention: No Homicidal Ideation: No Homicidal Plan: No Homicidal Intention: No Insight: Adequate Judgment: Adequate Assessment & Plan Problem List: (1) Alcohol abuse with alcohol-induced mood disorder ICD Codes: F10.14 - Alcohol abuse with alcohol-induced mood disorder Status: Acute Assessment & Plan: The patient does report symptomatology of depression in the context of persistent alcohol and cocaine use every day. Patient is to be committed to be transferred to [facility] for Detox. Patient was extensively psychoeducation about the importance of engaging in a long-term rehabilitation program. Brief supportive psychotherapy of motivation provided. He does not meet criteria for involuntary psychiatric admission. Delgado act will be lifted Assessment & Plan Estimated LOS: Duc Wilkerson MD Sep 01, 2017 12:03
== END 2017-09-01 09:34 | disposition home or self-care (01) ==
LOC: NEPD 20:43
DX: K21.9 Gastro-esophageal reflux disease without esophagitis (principal); F10.14 Alcohol abuse with alcohol-induced mood disorder; F14.10 Cocaine abuse, uncomplicated; R45.851 Suicidal ideations; F20.9 Schizophrenia, unspecified; F43.10 Post-traumatic stress disorder, unspecified; F31.9 Bipolar disorder, unspecified; I10 Essential (primary) hypertension; Z79.899 Other long term (current) drug therapy
CPT/HCPCS: 80053; 80307; 84443; 85025; 96372; 99284; J2060; J2550

== ENCOUNTER 2017-09-11 19:15 | Emergency (ER) | payer OTHER ==
[2017-09-11 19:34] VITALS: BP 149/87; PULSE 116; RESP 17; TEMP 99.2; O2SAT 95
[2017-09-11 20:20] LABS: AUTOMATED NEUTROPHIL # 7.3 TH/MM3 (1.8-7.7); BASOPHIL # 0.1 TH/MM3 (0-0.2); BASOPHIL % 1.2 % (0.0-2.0); EOSINOPHIL # 0.2 TH/MM3 (0-0.4); HEMOGLOBIN 16.7 GM/DL (13.0-17.0); LYMPH % 18.2 % (9.0-44.0); LYMPHOCYTE # 1.8 TH/MM3 (1.0-4.8); MEAN CELL VOLUME 90.2 FL (80.0-100.0); MEAN CORPUSCULAR HEMOGLOBIN 31.4 PG (27.0-34.0); MEAN CORPUSCULAR HGB CONC 34.8 % (32.0-36.0); MEAN PLATELET VOLUME 7.2 FL (7.0-11.0); MONO % 6.3 % (0.0-8.0); MONOCYTE # 0.6 TH/MM3 (0-0.9); NEUT % 72.3 % (16.0-70.0); PLATELET COUNT 256 TH/MM3 (150-450); RED BLOOD COUNT 5.32 MIL/MM3 (4.50-5.90); RED CELL DISTRIBUTION WIDTH 15.4 % (11.6-17.2); WHITE BLOOD COUNT 10.1 TH/MM3 (4.0-11.0)
[2017-09-11 20:51] LABS: ALBUMIN 4.1 GM/DL (3.4-5.0); AST (GOT) 103 U/L (15-37); BICARBONATE 24.2 MEQ/L (21.0-32.0); BLOOD UREA NITROGEN 7 MG/DL (7-18); CALCIUM 8.6 MG/DL (8.5-10.1); CHLORIDE 101 MEQ/L (98-107); CREATININE 1.04 MG/DL (0.60-1.30); GLOMERULAR FILTRATION RATE 76 ML/MIN (>89); GLUCOSE,RANDOM 97 MG/DL (74-106); SODIUM (NA) 136 MEQ/L (136-145)
[2017-09-11 20:52] LABS: ALT (GPT) 100 U/L (12-78)
[2017-09-11 21:02] LABS: ALKALINE PHOSPHATASE 79 U/L (45-117); TOTAL BILIRUBIN ADULT 0.7 MG/DL (0.2-1.0)
--- NOTE | 2017-09-11 21:14 | PD ---
HPI Chief Complaint: Psychiatric Symptoms Time Seen by Provider: 19:54 Travel History International Travel<30 days: No Contact w/Intl Traveler<30days: No Traveled to known affect area: No History of Present Illness HPI Patient is a 51-year-old male presenting to emergency department under Delgado act for psychiatric evaluation. Per the Delgado act report he was scared to think of what he would do if he did not get help. He also stated that he has been to [facility] before and feels like nothing is being done to help him. He said he does not want to be in this "dark place" anymore. He also stated they had thought of jumping [place] the [place] to end his life. Patient reported that he has given up, tried multiple times. He states he feels like shutting down, he states that he attempted suicide a few days ago by attempting to overdose on cocaine. He states he does not sleep for days at a time. He reports that he has alienated from his family and his children secondary to his drug and alcohol addiction. He currently works at the [employer] and initially reported that he was homeless however he does state he has a condo that he lives in. He has no physical complaints other than the insomnia at this time. Symptom onset is unknown, symptom severity is moderate. Symptoms appear to be exacerbated due to his addiction issues. PFSH Past Medical History Bipolar Disorder: Yes Anxiety: Yes (PANIC DISORDERS) Depression: Yes Chest Pain: Yes Cerebrovascular Accident: Yes GERD: Yes Genitourinary: Yes Hepatitis: Yes (HEP C) Hypertension: Yes Insomnia: Yes Kidney Stones: Yes Psychiatric: Yes (bipolar disorder) Integumentary: Yes Immunizations Current: Yes Migraines: Yes Schizophrenia: Yes Ulcer: Yes Past Surgical History Abdominal Surgery: No AICD: No Body Medical Devices: TITANIUM PIECE LEFT CHEEK AREA. Cardiac Surgery: No Ear Surgery: No Endocrine Surgery: No Eye Surgery: No Genitourinary Surgery: No Insulin Pump: No Joint Replacement: No Neurologic Surgery: No Oral Surgery: No Pacemaker: No Thoracic Surgery: No Other Surgery: Yes (FACIAL SURGERY) Social History Alcohol Use: Yes Tobacco Use: Yes Substance Use: Yes (COCAINE, MARIJUANA) Allergies-Medications (Allergen,Severity, Reaction): Coded Allergies: penicillin G (Unverified Adverse Reaction, Severe, SYNCOPE, 08/08/17) PT DENIES ANY ALLERGY Reported Meds & Prescriptions Reported Meds & Active Scripts Active Reported Abilify (Aripiprazole) 2 Mg Tab Unknown Dose PO DAILY Wellbutrin SR 12 HR (Bupropion HCl) 100 Mg Tab Unknown Dose PO Q12HR Review of Systems Except as stated in HPI: all other systems reviewed are Neg Psychiatric: Positive: Suicidal Ideations, Mood Disorder, Substance Abuse Physical Exam Narrative GENERAL: Well-developed, well-nourished, well-kept male. Presenting in no acute distress. SKIN: Warm and dry. HEAD: Atraumatic. Normocephalic. EYES: Pupils equal and round. No scleral icterus. No injection or drainage. ENT: No nasal bleeding or discharge. Mucous membranes pink and moist. NECK: Trachea midline. No JVD. CARDIOVASCULAR: Mildly tachycardic RESPIRATORY: No accessory muscle use. Clear to auscultation. Breath sounds equal bilaterally. GASTROINTESTINAL: Abdomen soft, non-tender, nondistended. Hepatic and splenic margins not palpable. MUSCULOSKELETAL: Extremities without clubbing, cyanosis, or edema. No obvious deformities. NEUROLOGICAL: Awake and alert. No obvious cranial nerve deficits. Motor grossly within normal limits. Five out of 5 muscle strength in the arms and legs. Normal speech. PSYCHIATRIC: Depressed mood and affect; insight and judgment normal. Data Data Last Documented VS Vital Signs Date Time Temp Pulse Resp B/P (MAP) Pulse Ox O2 Delivery O2 Flow Rate FiO2 09/11/17 19:34 99.2 116 17 149/87 (107) 95 Room Air Orders Orders Complete Blood Count With Diff (09/11/17 19:25) Comprehensive Metabolic Panel (09/11/17 19:25) Thyroid Stimulating Hormone (09/11/17 19:25) Psych Screen (09/11/17 19:25) Drug Screen, Random Urine (09/11/17 19:25) Alcohol (Ethanol) (09/11/17 19:25) Temazepam (Restoril) (09/11/17 21:15) Labs Laboratory Tests Test 09/11/17 19:53 White Blood Count 10.1 TH/MM3 Red Blood Count 5.32 MIL/MM3 Hemoglobin 16.7 GM/DL Hematocrit 48.0 % Mean Corpuscular Volume 90.2 FL Mean Corpuscular Hemoglobin 31.4 PG Mean Corpuscular Hemoglobin Concent 34.8 % Red Cell Distribution Width 15.4 % Platelet Count 256 TH/MM3 Mean Platelet Volume 7.2 FL Neutrophils (%) (Auto) 72.3 % Lymphocytes (%) (Auto) 18.2 % Monocytes (%) (Auto) 6.3 % Eosinophils (%) (Auto) 2.0 % Basophils (%) (Auto) 1.2 % Neutrophils # (Auto) 7.3 TH/MM3 Lymphocytes # (Auto) 1.8 TH/MM3 Monocytes # (Auto) 0.6 TH/MM3 Eosinophils # (Auto) 0.2 TH/MM3 Basophils # (Auto) 0.1 TH/MM3 CBC Comment DIFF FINAL Differential Comment Blood Urea Nitrogen 7 MG/DL Creatinine 1.04 MG/DL Random Glucose 97 MG/DL Total Protein 8.0 GM/DL Albumin 4.1 GM/DL Calcium Level 8.6 MG/DL Alkaline Phosphatase 79 U/L Aspartate Amino Transf (AST/SGOT) 103 U/L Alanine Aminotransferase (ALT/SGPT) 100 U/L Total Bilirubin 0.7 MG/DL Sodium Level 136 MEQ/L Potassium Level 3.5 MEQ/L Chloride Level 101 MEQ/L Carbon Dioxide Level 24.2 MEQ/L Anion Gap 11 MEQ/L Estimat Glomerular Filtration Rate 76 ML/MIN Thyroid Stimulating Hormone 3rd Gen 1.480 uIU/ML Urine Opiates Screen NEG Urine Barbiturates Screen NEG Urine Amphetamines Screen NEG Urine Benzodiazepines Screen NEG Urine Cocaine Screen NEG Urine Cannabinoids Screen NEG Ethyl Alcohol Level 161 MG/DL MDM Medical Decision Making Medical Screen Exam Complete: Yes Emergency Medical Condition: Yes Medical Record Reviewed: Yes Interpretation(s) Laboratory Tests Test 09/11/17 19:53 White Blood Count 10.1 TH/MM3 Red Blood Count 5.32 MIL/MM3 Hemoglobin 16.7 GM/DL Hematocrit 48.0 % Mean Corpuscular Volume 90.2 FL Mean Corpuscular Hemoglobin 31.4 PG Mean Corpuscular Hemoglobin Concent 34.8 % Red Cell Distribution Width 15.4 % Platelet Count 256 TH/MM3 Mean Platelet Volume 7.2 FL Neutrophils (%) (Auto) 72.3 % Lymphocytes (%) (Auto) 18.2 % Monocytes (%) (Auto) 6.3 % Eosinophils (%) (Auto) 2.0 % Basophils (%) (Auto) 1.2 % Neutrophils # (Auto) 7.3 TH/MM3 Lymphocytes # (Auto) 1.8 TH/MM3 Monocytes # (Auto) 0.6 TH/MM3 Eosinophils # (Auto) 0.2 TH/MM3 Basophils # (Auto) 0.1 TH/MM3 CBC Comment DIFF FINAL Differential Comment Blood Urea Nitrogen 7 MG/DL Creatinine 1.04 MG/DL Random Glucose 97 MG/DL Total Protein 8.0 GM/DL Albumin 4.1 GM/DL Calcium Level 8.6 MG/DL Alkaline Phosphatase 79 U/L Aspartate Amino Transf (AST/SGOT) 103 U/L Alanine Aminotransferase (ALT/SGPT) 100 U/L Total Bilirubin 0.7 MG/DL Sodium Level 136 MEQ/L Potassium Level 3.5 MEQ/L Chloride Level 101 MEQ/L Carbon Dioxide Level 24.2 MEQ/L Anion Gap 11 MEQ/L Estimat Glomerular Filtration Rate 76 ML/MIN Thyroid Stimulating Hormone 3rd Gen 1.480 uIU/ML Urine Opiates Screen NEG Urine Barbiturates Screen NEG Urine Amphetamines Screen NEG Urine Benzodiazepines Screen NEG Urine Cocaine Screen NEG Urine Cannabinoids Screen NEG Ethyl Alcohol Level 161 MG/DL Vital Signs Date Time Temp Pulse Resp B/P (MAP) Pulse Ox O2 Delivery O2 Flow Rate FiO2 09/11/17 19:34 99.2 116 17 149/87 (107) 95 Room Air Differential Diagnosis Mood disorder versus substance abuse versus intoxication versus insomnia versus metabolic abnormality versus other Narrative Course Patient is a 51-year-old male well-known to the emergency department. He is presenting under Delgado act for psychiatric evaluation. He reports a long history of cocaine and alcohol abuse. He is currently estranged from his family secondary to that. Mental health screening discussed with the patient. Psychiatric screen ordered. Patient is mildly tachycardic on arrival. He has no physical complaints other than insomnia. He does not appear to own up to the fact that his substance abuse is contributing to his insomnia, relationship issues and even his mental health. He reports he is tried several times in the past and appears to now have given up. He stated the same complaints and prior admissions to the emergency department. Labs reviewed, no acute findings identified. Patient was given temazepam 15 mg p.o. 1 dose for insomnia. He is medically cleared for psychiatric evaluation. Diagnosis Primary Impression: Encounter for medical screening examination Additional Impressions: Alcohol intoxication Qualified Codes: F10.920 - Alcohol use, unspecified with intoxication, uncomplicated Alcohol dependence Qualified Codes: F10.29 - Alcohol dependence with unspecified alcohol-induced disorder Suicidal ideations Condition: Stable Renetta Graham [facility] Sep 11, 2017 21:14
[2017-09-11] MEDS ORDERED: TEMAZEPAM 15 MG CAP PO ONE (21:15)
[2017-09-12 00:18] VITALS: BP 122/74; PULSE 100; RESP 18; TEMP 99.7; O2SAT 96
[2017-09-12] MEDS ORDERED: LORazepam 2 MG TAB PO PRN (04:00)
[2017-09-12] MEDS ORDERED: LORazepam 2 MG/ML VIAL IV PUSH PRN ×4 (04:00)
[2017-09-12] MEDS ORDERED: LORazepam 1 MG TAB PO PRN (04:00)
[2017-09-12] MEDS ORDERED: FLUMAZENIL 0.5 MG/5 ML VIAL IV PUSH PRN (04:00)
[2017-09-12] MEDS ORDERED: ASPIRIN 325 MG TAB PO ONE (04:15)
[2017-09-12 06:53] VITALS: BP 135/80; PULSE 86; RESP 18; TEMP 98.4; O2SAT 98
--- NOTE | 2017-09-12 13:53 | PD ---
History of Present Illness Chief Complaint: Psychiatric Symptoms Time Seen by Provider: 13:40 Travel History International Travel<30 Days: No Contact w/Intl Traveler<30days: No Known affected area: No Legal Status Legal Status: Delgado Act Delgado Act Signed By: Kirstie Garcia History of Present Illness: History of Present Illness HPI Patient is a 51-year-old single, , homeless, unemployed male with psychiatric history of PTSD, bipolar disorder, alcohol abuse, cocaine abuse presenting to emergency department under Delgado act for psychiatric evaluation. Per the Delgado act report he was scared to think of what he would do if he did not get help. Admits to recent cocaine use a couple of days ago and states that this was a suicide attempt. Reporting has not slept for a couple of days. Patient's blood alcohol level on arrival to the ED was 161. His toxicology was negative for other substances. Electronic medical record is reviewed. He has had multiple visits to the ED for alcohol related issues. His last psychiatric admission was in 2016 and treated for alcohol induced mood disorder. The patient was allowed to sober up clinically. He slept all night and the majority of the morning. He is alert, and oriented, pleasant and engaging. He states that we have already helped him because he was able to sleep. He is requesting to be discharged and he is also asking for medications such as Ativan and temazepam for sleep. Patient does not present any evidence of any psychosis and no faustina. There is no significant subjective clinical symptom of depression. There is no suicidal or homicidal ideation, intent or plan. As stated previously he is feeling much better after he has slept here and J pod. PFSH Past Medical History Bipolar Disorder: Yes Anxiety: Yes (PANIC DISORDERS) Depression: Yes Chest Pain: Yes Cerebrovascular Accident: Yes GERD: Yes Genitourinary: Yes Hepatitis: Yes (HEP C) Hypertension: Yes Insomnia: Yes Kidney Stones: Yes Psychiatric: Yes (bipolar disorder) Integumentary: Yes Immunizations Current: Yes Migraines: Yes Schizophrenia: Yes Ulcer: Yes Past Surgical History Abdominal Surgery: No AICD: No Body Medical Devices: TITANIUM PIECE LEFT CHEEK AREA. Cardiac Surgery: No Ear Surgery: No Endocrine Surgery: No Eye Surgery: No Genitourinary Surgery: No Insulin Pump: No Joint Replacement: No Neurologic Surgery: No Oral Surgery: No Pacemaker: No Thoracic Surgery: No Other Surgery: Yes (FACIAL SURGERY) Psychiatric History Psychiatric History Hx Psychiatric Treatment: PATIENT HAS AN EXTENSIVE HISTORY OF PAST VISITS FOR ALCOHOL ABUSE AT [facility]. PATIENT WAS LAST ADMITTED TO [facility] FROM 06/21/15 TO 05/05/16 FOR ALCOHOL INDUCED MOOD DISORDER. Reports at least 30+ lifetime psychiatric admissions. Reports at least 6 previous suicide attempts by overdosing, cutting his wrists, and walking in front of traffic. History of Inpatient Treatment: Yes Guns or firearms in home: No Social History Single, homeless male. Employed at the [employer]. Hx Alcohol Use: Yes Hx Tobacco Use: Yes Hx Substance Use: Yes (COCAINE, MARIJUANA) Substance Use Type: Alcohol, Crack, Marijuana, Cocaine Other Substances Used: ADMITS TO DRINKING BEER DAILY AND USING COCAINE Hx of Substance Use Treatment: Yes Family Psychiatric History Negative Allergies-Medications (Allergen,Severity, Reaction): Coded Allergies: penicillin G (Unverified Adverse Reaction, Severe, SYNCOPE, 08/08/17) PT DENIES ANY ALLERGY Reported Meds & Prescriptions Reported Meds & Active Scripts Active Reported Abilify (Aripiprazole) 2 Mg Tab Unknown Dose PO DAILY Wellbutrin SR 12 HR (Bupropion HCl) 100 Mg Tab Unknown Dose PO Q12HR Review of Systems Psychiatric: COMPLAINS OF: Mood changes, Suicidal Ideation Except as stated in HPI: all other systems reviewed are Neg Mental Status Examination Appearance: Appropriate Consciousness: Alert Orientation: x4 Motor Activity: Normal gait Speech: Unremarkable Language: Adequate Fund of Knowledge: Adequate Attention and Concentration: Adequate Memory: Unremarkable Mood: Appropriate Affect: Appropriate Thought Process & Associations: Intact, Logical, Goal directed Thought Content: Appropriate Hallucination Type: None Delusion Type: None Suicidal Ideation: No Suicidal Plan: No Suicidal Intention: No Homicidal Ideation: No Homicidal Plan: No Homicidal Intention: No Insight: Poor Judgment: Impulsive MDM Medical Decision Making Medical Record Reviewed: Yes Assessment/Plan Patient is a 51-year-old single, , homeless, unemployed male with psychiatric history of PTSD, bipolar disorder, alcohol abuse, cocaine abuse presenting to emergency department under Delgado act for psychiatric evaluation. Per the Delgado act report he was scared to think of what he would do if he did not get help. Admits to recent cocaine use a couple of days ago and states that this was a suicide attempt. Reporting has not slept for a couple of days. Patient's blood alcohol level on arrival to the ED was 161. His toxicology was negative for other substances. Patient was allowed to sober up clinically. Patient slept for most of the night and most of the morning. Upon arising patient does not present any evidence of unstable mental illness. He denies any suicidal or homicidal ideation. He is requesting to be discharged. He is engaging and medication seeking behavior specifically for benzos. He is offered a prescription for Remeron which she has SABS because he has taken in the past and has helped him with sleep. He is advised not to consume alcohol and mixed with medications. Encouraged to follow up with Jorge Mcallister. BA is lifted. Orders Orders Complete Blood Count With Diff (09/11/17 19:25) Comprehensive Metabolic Panel (09/11/17 19:25) Thyroid Stimulating Hormone (09/11/17 19:25) Psych Screen (09/11/17 19:25) Drug Screen, Random Urine (09/11/17 19:25) Alcohol (Ethanol) (09/11/17 19:25) Temazepam (Restoril) (09/11/17 21:15) Diet Regular Basic (09/12/17 Breakfast) Alcohol Withdrawal Asmt-Ciwa ONCE (09/12/17 03:46) Flumazenil Inj (Romazicon Inj) (09/12/17 04:00) Lorazepam (Ativan) (09/12/17 04:00) Lorazepam Inj (Ativan Inj) (09/12/17 04:00) Lorazepam (Ativan) (09/12/17 04:00) Lorazepam Inj (Ativan Inj) (09/12/17 04:00) Lorazepam Inj (Ativan Inj) (09/12/17 04:00) Lorazepam Inj (Ativan Inj) (09/12/17 04:00) Aspirin (Aspirin) (09/12/17 04:15) Diet Regular Basic (09/12/17 Lunch) Results Vital Signs Date Time Temp Pulse Resp B/P (MAP) Pulse Ox O2 Delivery O2 Flow Rate FiO2 09/12/17 06:53 98.4 86 18 135/80 (98) 98 Room Air 09/12/17 00:18 99.7 100 18 122/74 (90) 96 Room Air 09/11/17 19:34 99.2 116 17 149/87 (107) 95 Room Air Laboratory Tests Test 09/11/17 19:53 White Blood Count 10.1 Red Blood Count 5.32 Hemoglobin 16.7 Hematocrit 48.0 Mean Corpuscular Volume 90.2 Mean Corpuscular Hemoglobin 31.4 Mean Corpuscular Hemoglobin Concent 34.8 Red Cell Distribution Width 15.4 Platelet Count 256 Mean Platelet Volume 7.2 Neutrophils (%) (Auto) 72.3 Lymphocytes (%) (Auto) 18.2 Monocytes (%) (Auto) 6.3 Eosinophils (%) (Auto) 2.0 Basophils (%) (Auto) 1.2 Neutrophils # (Auto) 7.3 Lymphocytes # (Auto) 1.8 Monocytes # (Auto) 0.6 Eosinophils # (Auto) 0.2 Basophils # (Auto) 0.1 CBC Comment DIFF FINAL Differential Comment Blood Urea Nitrogen 7 Creatinine 1.04 Random Glucose 97 Total Protein 8.0 Albumin 4.1 Calcium Level 8.6 Alkaline Phosphatase 79 Aspartate Amino Transf (AST/SGOT) 103 Alanine Aminotransferase (ALT/SGPT) 100 Total Bilirubin 0.7 Sodium Level 136 Potassium Level 3.5 Chloride Level 101 Carbon Dioxide Level 24.2 Anion Gap 11 Estimat Glomerular Filtration Rate 76 Thyroid Stimulating Hormone 3rd Gen 1.480 Urine Opiates Screen NEG Urine Barbiturates Screen NEG Urine Amphetamines Screen NEG Urine Benzodiazepines Screen NEG Urine Cocaine Screen NEG Urine Cannabinoids Screen NEG Ethyl Alcohol Level 161 Diagnosis Primary Impression: Alcohol dependence with intoxication Additional Impressions: Cocaine abuse Drug-induced mood disorder Ruled Out: Suicidal ideations Psychiatrically Cleared: Yes Med/ Other Pt Specific Info: Prescription(s) given Prescriptions Mirtazapine (Remeron) 15 Mg Tab 15 MG PO HS Y for INSOMNIA for 30 Days, #30 TAB 0 Refills Prov: Venita Fowler 09/12/17 Disposition: 01 DISCHARGE HOME Condition: Stable Problem Qualifiers Venita Fowler Sep 12, 2017 13:53
[2017-09-12] MEDS ORDERED: REME15TA PO (13:54)
--- NOTE | 2017-09-12 14:18 | PD ---
Physical Exam Time Seen by Provider: 14:16 SONU Gooden, has evaluated the patient, lifted the Delgado act and cleared the patient for discharge. Data Data Last Documented VS Vital Signs Date Time Temp Pulse Resp B/P (MAP) Pulse Ox O2 Delivery O2 Flow Rate FiO2 09/12/17 06:53 98.4 86 18 135/80 (98) 98 Room Air Orders Orders Complete Blood Count With Diff (09/11/17 19:25) Comprehensive Metabolic Panel (09/11/17 19:25) Thyroid Stimulating Hormone (09/11/17 19:25) Psych Screen (09/11/17 19:25) Drug Screen, Random Urine (09/11/17 19:25) Alcohol (Ethanol) (09/11/17 19:25) Temazepam (Restoril) (09/11/17 21:15) Diet Regular Basic (09/12/17 Breakfast) Alcohol Withdrawal Asmt-Ciwa ONCE (09/12/17 03:46) Flumazenil Inj (Romazicon Inj) (09/12/17 04:00) Lorazepam (Ativan) (09/12/17 04:00) Lorazepam Inj (Ativan Inj) (09/12/17 04:00) Lorazepam (Ativan) (09/12/17 04:00) Lorazepam Inj (Ativan Inj) (09/12/17 04:00) Lorazepam Inj (Ativan Inj) (09/12/17 04:00) Lorazepam Inj (Ativan Inj) (09/12/17 04:00) Aspirin (Aspirin) (09/12/17 04:15) Diet Regular Basic (09/12/17 Lunch) Labs Laboratory Tests Test 09/11/17 19:53 White Blood Count 10.1 TH/MM3 Red Blood Count 5.32 MIL/MM3 Hemoglobin 16.7 GM/DL Hematocrit 48.0 % Mean Corpuscular Volume 90.2 FL Mean Corpuscular Hemoglobin 31.4 PG Mean Corpuscular Hemoglobin Concent 34.8 % Red Cell Distribution Width 15.4 % Platelet Count 256 TH/MM3 Mean Platelet Volume 7.2 FL Neutrophils (%) (Auto) 72.3 % Lymphocytes (%) (Auto) 18.2 % Monocytes (%) (Auto) 6.3 % Eosinophils (%) (Auto) 2.0 % Basophils (%) (Auto) 1.2 % Neutrophils # (Auto) 7.3 TH/MM3 Lymphocytes # (Auto) 1.8 TH/MM3 Monocytes # (Auto) 0.6 TH/MM3 Eosinophils # (Auto) 0.2 TH/MM3 Basophils # (Auto) 0.1 TH/MM3 CBC Comment DIFF FINAL Differential Comment Blood Urea Nitrogen 7 MG/DL Creatinine 1.04 MG/DL Random Glucose 97 MG/DL Total Protein 8.0 GM/DL Albumin 4.1 GM/DL Calcium Level 8.6 MG/DL Alkaline Phosphatase 79 U/L Aspartate Amino Transf (AST/SGOT) 103 U/L Alanine Aminotransferase (ALT/SGPT) 100 U/L Total Bilirubin 0.7 MG/DL Sodium Level 136 MEQ/L Potassium Level 3.5 MEQ/L Chloride Level 101 MEQ/L Carbon Dioxide Level 24.2 MEQ/L Anion Gap 11 MEQ/L Estimat Glomerular Filtration Rate 76 ML/MIN Thyroid Stimulating Hormone 3rd Gen 1.480 uIU/ML Urine Opiates Screen NEG Urine Barbiturates Screen NEG Urine Amphetamines Screen NEG Urine Benzodiazepines Screen NEG Urine Cocaine Screen NEG Urine Cannabinoids Screen NEG Ethyl Alcohol Level 161 MG/DL MDM Supervised Visit with ELEONORA: No Narrative Course SONU Nathan, has evaluated the patient, lifted the Delgado act and cleared the patient for discharge. Patient contracts safety. Denies suicidal or homicidal ideations. Patient will be provided community resource packet to ISAK for follow-up. Has friends and family for support. Patient was medically cleared by alternate provider prior to psych screening. Patient has been evaluated by psychiatry and and is now cleared for discharge. Diagnosis Primary Impression: Alcohol dependence with intoxication Additional Impressions: Cocaine abuse Drug-induced mood disorder Ruled Out: Suicidal ideations Referrals: SURINDER (Out patient) [facility] Primary Care Physician Psychiatrist Aron [facility] Patient Instructions: Abuse of Alcohol (ED), Alcohol Dependence (ED), Alcohol Intoxication (ED), Cocaine Abuse (ED), General Instructions, Mood Disorders (ED) , Polysubstance Abuse (ED) Additional Instruction: Contract safety to your self and others Follow-up with psychiatry Follow-up with primary care provider Follow-up with Sean Blount Return to the emergency department immediately with worsening of symptoms Med/Other Pt SpecificInfo: Prescription(s) given Scripts Mirtazapine (Remeron) 15 Mg Tab 15 MG PO HS Y for INSOMNIA for 30 Days, #30 TAB 0 Refills Prov: Venita Fowler 09/12/17 Disposition: 01 DISCHARGE HOME Condition: Stable Aubree Petersen Sep 12, 2017 14:17
[2017-09-12 14:34] VITALS: BP 146/97; PULSE 98; RESP 20
== END 2017-09-12 16:56 | disposition home or self-care (01) ==
LOC: NEPJ 19:15
DX: F10.229 Alcohol dependence with intoxication, unspecified (principal); F14.14 Cocaine abuse with cocaine-induced mood disorder; F43.10 Post-traumatic stress disorder, unspecified; F31.9 Bipolar disorder, unspecified; F41.9 Anxiety disorder, unspecified; I10 Essential (primary) hypertension; Z59.0 Homelessness; Z86.73 Personal history of transient ischemic attack (TIA), and cerebral infarction without residual deficits; Z79.899 Other long term (current) drug therapy
CPT/HCPCS: 80053; 80307; 84443; 85025; 99284

== ENCOUNTER 2017-09-15 23:52 | Emergency (ER) | payer OTHER ==
[~2017-09-15] VITALS: Ht 170.2 cm; Wt 70.0 kg
[~2017-09-15 23:52] MED LIST changes: +REME15TA PO
[2017-09-16] VITALS: BP 169/103; PULSE 98; RESP 20; TEMP 99; O2SAT 99
--- NOTE | 2017-09-16 01:39 | PD ---
HPI Chief Complaint: Psychiatric Symptoms Time Seen by Provider: 01:28 Travel History International Travel<30 days: No Contact w/Intl Traveler<30days: No Traveled to known affect area: No History of Present Illness HPI 51-year-old white male presents to emergency department under Delgado act by PD. They contacted ED advising them he was feeling suicidal and he was going to walk on the traffic cut his wrist. Patient has a history of chronic alcohol abuse. This is a patient known to the medical staff and myself for prior visits. The patient states that been feeling depressed. He is afraid that he' ll lose the place he is been staying and will be on the streets. He also states that he is concerned that he could go through withdrawal. He denies any toxic ingestions. He denies any other medical complaints. PFSH Past Medical History Bipolar Disorder: Yes Anxiety: Yes (PANIC DISORDERS) Depression: Yes Chest Pain: Yes Cerebrovascular Accident: Yes GERD: Yes Genitourinary: Yes Hepatitis: Yes (HEP C) Hypertension: Yes Insomnia: Yes Kidney Stones: Yes Psychiatric: Yes (bipolar disorder) Integumentary: Yes Immunizations Current: Yes Migraines: Yes Schizophrenia: Yes Ulcer: Yes Past Surgical History Abdominal Surgery: No AICD: No Body Medical Devices: TITANIUM PIECE LEFT CHEEK AREA. Cardiac Surgery: No Ear Surgery: No Endocrine Surgery: No Eye Surgery: No Genitourinary Surgery: No Insulin Pump: No Joint Replacement: No Neurologic Surgery: No Oral Surgery: No Pacemaker: No Thoracic Surgery: No Other Surgery: Yes (FACIAL SURGERY) Social History Alcohol Use: Yes Tobacco Use: Yes Substance Use: Yes (COCAINE, MARIJUANA) Allergies-Medications (Allergen,Severity, Reaction): Coded Allergies: penicillin G (Unverified Adverse Reaction, Severe, SYNCOPE, 08/08/17) PT DENIES ANY ALLERGY Reported Meds & Prescriptions Reported Meds & Active Scripts Active Remeron (Mirtazapine) 15 Mg Tab 15 Mg PO HS PRN 30 Days Reported Abilify (Aripiprazole) 2 Mg Tab Unknown Dose PO DAILY Wellbutrin SR 12 HR (Bupropion HCl) 100 Mg Tab Unknown Dose PO Q12HR Review of Systems General / Constitutional: No: Fever Eyes: No: Visual changes HENT: No: Headaches Cardiovascular: No: Chest Pain or Discomfort Respiratory: No: Shortness of Breath Gastrointestinal: No: Abdominal Pain Genitourinary: No: Dysuria Musculoskeletal: No: Pain Skin: No Rash Neurologic: No: Weakness Psychiatric: Positive: Anxiety, Depression, Suicidal Ideations, Disorder of Thought, Mood Disorder, Substance Abuse, Homicidal Ideation Endocrine: No: Polydipsia Hematologic/Lymphatic: No: Easy Bruising Physical Exam Narrative GENERAL: Well-nourished, well-developed patient. The patient sitting up and appears in no distress. He is not tachycardic or tremulous. He is eating a TV dinner. SKIN: Warm and dry. HEAD: Normocephalic and atraumatic. EYES: No scleral icterus. No injection or drainage. ENT: No nasal drainage noted. Mucous membranes pink. Airway patent. NECK: Supple, trachea midline. Moves head freely without obvious discomfort. CARDIOVASCULAR: Regular rate and rhythm without murmurs, gallops, or rubs. RESPIRATORY: Breath sounds equal bilaterally. No accessory muscle use. GASTROINTESTINAL: Abdomen soft, non-tender, nondistended. EXTREMITIES: No cyanosis or edema. BACK: Nontender without obvious deformity. No CVA tenderness. NEURO: Patient is alert and oriented. no sensorimotor deficits. Nonfocal. Normal speech. PSYCH: No delusions. No auditory or visual hallucinations. Data Data Last Documented VS Vital Signs Date Time Temp Pulse Resp B/P (MAP) Pulse Ox O2 Delivery O2 Flow Rate FiO2 09/16/17 02:20 98.3 99 16 119/88 (98) 98 Room Air Orders Orders Complete Blood Count With Diff (09/16/17 01:29) Comprehensive Metabolic Panel (09/16/17 01:29) Thyroid Stimulating Hormone (09/16/17 01:29) Psych Screen (09/16/17 01:29) Drug Screen, Random Urine (09/16/17 01:29) Alcohol (Ethanol) (09/16/17 01:29) Salicylates (Aspirin) (09/16/17 01:29) Tylenol (Acetaminophen) (09/16/17:29) Chlordiazepoxide (Librium) (09/16/17 01:45) Labs Laboratory Tests Test 09/16/17 01:40 White Blood Count 10.6 TH/MM3 Red Blood Count 5.75 MIL/MM3 Hemoglobin 18.3 GM/DL Hematocrit 51.5 % Mean Corpuscular Volume 89.6 FL Mean Corpuscular Hemoglobin 31.9 PG Mean Corpuscular Hemoglobin Concent 35.6 % Red Cell Distribution Width 15.7 % Platelet Count 324 TH/MM3 Mean Platelet Volume 7.3 FL Neutrophils (%) (Auto) 47.4 % Lymphocytes (%) (Auto) 36.1 % Monocytes (%) (Auto) 8.7 % Eosinophils (%) (Auto) 6.7 % Basophils (%) (Auto) 1.1 % Neutrophils # (Auto) 5.0 TH/MM3 Lymphocytes # (Auto) 3.8 TH/MM3 Monocytes # (Auto) 0.9 TH/MM3 Eosinophils # (Auto) 0.7 TH/MM3 Basophils # (Auto) 0.1 TH/MM3 CBC Comment DIFF FINAL Differential Comment Blood Urea Nitrogen 5 MG/DL Creatinine 0.83 MG/DL Random Glucose 72 MG/DL Total Protein 8.7 GM/DL Albumin 4.5 GM/DL Calcium Level 8.8 MG/DL Alkaline Phosphatase 88 U/L Aspartate Amino Transf (AST/SGOT) 101 U/L Alanine Aminotransferase (ALT/SGPT) 141 U/L Total Bilirubin 0.5 MG/DL Sodium Level 139 MEQ/L Potassium Level 3.5 MEQ/L Chloride Level 103 MEQ/L Carbon Dioxide Level 23.2 MEQ/L Anion Gap 13 MEQ/L Estimat Glomerular Filtration Rate 98 ML/MIN Thyroid Stimulating Hormone 3rd Gen 3.210 uIU/ML Salicylates Level LESS THAN 1.7 MG/DL Urine Opiates Screen NEG Acetaminophen Level LESS THAN 2.0 MCG/ML Urine Barbiturates Screen NEG Urine Amphetamines Screen NEG Urine Benzodiazepines Screen NEG Urine Cocaine Screen NEG Urine Cannabinoids Screen NEG Ethyl Alcohol Level 269 MG/DL MDM Medical Decision Making Medical Screen Exam Complete: Yes Emergency Medical Condition: Yes Medical Record Reviewed: Yes Interpretation(s) Laboratory Tests Test 09/16/17 01:40 White Blood Count 10.6 TH/MM3 Red Blood Count 5.75 MIL/MM3 Hemoglobin 18.3 GM/DL Hematocrit 51.5 % Mean Corpuscular Volume 89.6 FL Mean Corpuscular Hemoglobin 31.9 PG Mean Corpuscular Hemoglobin Concent 35.6 % Red Cell Distribution Width 15.7 % Platelet Count 324 TH/MM3 Mean Platelet Volume 7.3 FL Neutrophils (%) (Auto) 47.4 % Lymphocytes (%) (Auto) 36.1 % Monocytes (%) (Auto) 8.7 % Eosinophils (%) (Auto) 6.7 % Basophils (%) (Auto) 1.1 % Neutrophils # (Auto) 5.0 TH/MM3 Lymphocytes # (Auto) 3.8 TH/MM3 Monocytes # (Auto) 0.9 TH/MM3 Eosinophils # (Auto) 0.7 TH/MM3 Basophils # (Auto) 0.1 TH/MM3 CBC Comment DIFF FINAL Differential Comment Blood Urea Nitrogen 5 MG/DL Creatinine 0.83 MG/DL Random Glucose 72 MG/DL Total Protein 8.7 GM/DL Albumin 4.5 GM/DL Calcium Level 8.8 MG/DL Alkaline Phosphatase 88 U/L Aspartate Amino Transf (AST/SGOT) 101 U/L Alanine Aminotransferase (ALT/SGPT) 141 U/L Total Bilirubin 0.5 MG/DL Sodium Level 139 MEQ/L Potassium Level 3.5 MEQ/L Chloride Level 103 MEQ/L Carbon Dioxide Level 23.2 MEQ/L Anion Gap 13 MEQ/L Estimat Glomerular Filtration Rate 98 ML/MIN Thyroid Stimulating Hormone 3rd Gen 3.210 uIU/ML Salicylates Level LESS THAN 1.7 MG/DL Urine Opiates Screen NEG Acetaminophen Level LESS THAN 2.0 MCG/ML Urine Barbiturates Screen NEG Urine Amphetamines Screen NEG Urine Benzodiazepines Screen NEG Urine Cocaine Screen NEG Urine Cannabinoids Screen NEG Ethyl Alcohol Level 269 MG/DL Differential Diagnosis MDM: High Differential diagnoses: Schizophrenia, schizoaffective disorder, bipolar, anxiety, depression, adjustment reaction, mood disorder NOS, substance induced mood disorder, infection,electrolyte abnormality, malingering. Narrative Course Mental health screening discussed with the patient. Psychiatric screen ordered. The patient is medically cleared. Patient's given Librium 50 mg by mouth. Diagnosis Primary Impression: Medical clearance for psychiatric admission Additional Impression: Alcohol abuse Condition: Stable Yosef Parrish Sep 16, 2017 01:38
[2017-09-16] MEDS ORDERED: chlordiazePOXIDE 25 MG CAP PO ONE (01:45)
[2017-09-16 01:49] LABS: BASOPHIL # 0.1 TH/MM3 (0-0.2); BASOPHIL % 1.1 % (0.0-2.0); EOSINOPHIL # 0.7 TH/MM3 (0-0.4); EOSINOPHIL % 6.7 % (0.0-4.0); HEMATOCRIT 51.5 % (39.0-51.0); HEMOGLOBIN 18.3 GM/DL (13.0-17.0); LYMPH % 36.1 % (9.0-44.0); LYMPHOCYTE # 3.8 TH/MM3 (1.0-4.8); MEAN CELL VOLUME 89.6 FL (80.0-100.0); MEAN CORPUSCULAR HEMOGLOBIN 31.9 PG (27.0-34.0); MEAN CORPUSCULAR HGB CONC 35.6 % (32.0-36.0); MEAN PLATELET VOLUME 7.3 FL (7.0-11.0); MONO % 8.7 % (0.0-8.0); MONOCYTE # 0.9 TH/MM3 (0-0.9); NEUT % 47.4 % (16.0-70.0); PLATELET COUNT 324 TH/MM3 (150-450); RED BLOOD COUNT 5.75 MIL/MM3 (4.50-5.90); RED CELL DISTRIBUTION WIDTH 15.7 % (11.6-17.2); WHITE BLOOD COUNT 10.6 TH/MM3 (4.0-11.0)
[2017-09-16 02:11] LABS: ALBUMIN 4.5 GM/DL (3.4-5.0); ALT (GPT) 141 U/L (12-78); AST (GOT) 101 U/L (15-37); BICARBONATE 23.2 MEQ/L (21.0-32.0); BLOOD UREA NITROGEN 5 MG/DL (7-18); CALCIUM 8.8 MG/DL (8.5-10.1); CHLORIDE 103 MEQ/L (98-107); CREATININE 0.83 MG/DL (0.60-1.30); GLOMERULAR FILTRATION RATE 98 ML/MIN (>89); GLUCOSE,RANDOM 72 MG/DL (74-106); SODIUM (NA) 139 MEQ/L (136-145)
[2017-09-16 02:20] VITALS: BP 119/88; PULSE 99; RESP 16; TEMP 98.3; O2SAT 98
[2017-09-16 02:20] LABS: ALKALINE PHOSPHATASE 88 U/L (45-117); TOTAL BILIRUBIN ADULT 0.5 MG/DL (0.2-1.0); TOTAL PROTEIN 8.7 GM/DL (6.4-8.2)
[2017-09-16 02:21] LABS: ACETAMINOPHEN LESS THAN 2.0 MCG/ML (10.0-30.0)
[2017-09-16] MEDS ORDERED: VIST50CA PO (03:00)
[2017-09-16 05:52] VITALS: BP 129/91; PULSE 85; RESP 15; TEMP 98.7; O2SAT 96
--- NOTE | 2017-09-16 10:39 | PD ---
History of Present Illness Chief Complaint: Psychiatric Symptoms Time Seen by Provider: 10:40 Travel History International Travel<30 Days: No Contact w/Intl Traveler<30days: No Known affected area: No Legal Status Legal Status: Delgado Act Delgado Act Signed By: Kirstie Delgado Act Comment: 09/15/2017 2319 OFC. Clara MARK #[id number] C/N [id number] History of Present Illness: History of Present Illness HPI 51-year-old white single, homeless male with history of alcohol dependence presents to emergency department under Delgado act by PD. He contacted the police advising them he was feeling suicidal and he was going to walk out into traffic or cut his wrist. The patient was intoxicated at the time and presented with blood alcohol level of 269. This is a patient known to the medical staff and myself for prior visits. The patient was monitored in secure environment and allow to sober up clinically. The patient slept while he was in the ED. The patient is seen with Carl, airborne weapons technical manager as well as with SHAREE Daugherty. He is clinically sober at this time. There is no evidence of any psychosis, no faustina. There is no suicidal or homicidal ideation. The patient is making every effort at trying to secure admission to the hospital since he is homeless. He stated that he needed to stay here or in detox until a bed came available in a long-term residential facility. Unfortunately the patient has been referred to treatment at [facility] but he refused that admission earlier in the week. Patient wants to go to the treatment facility of his choice. PFSH Past Medical History Bipolar Disorder: Yes Anxiety: Yes (PANIC DISORDERS) Depression: Yes Chest Pain: Yes Cerebrovascular Accident: Yes GERD: Yes Genitourinary: Yes Hepatitis: Yes (HEP C) Hypertension: Yes Insomnia: Yes Kidney Stones: Yes Psychiatric: Yes (bipolar disorder) Integumentary: Yes Immunizations Current: Yes Migraines: Yes Schizophrenia: Yes Ulcer: Yes Past Surgical History Abdominal Surgery: No AICD: No Body Medical Devices: TITANIUM PIECE LEFT CHEEK AREA. Cardiac Surgery: No Ear Surgery: No Endocrine Surgery: No Eye Surgery: No Genitourinary Surgery: No Insulin Pump: No Joint Replacement: No Neurologic Surgery: No Oral Surgery: No Pacemaker: No Thoracic Surgery: No Other Surgery: Yes (FACIAL SURGERY) Psychiatric History Psychiatric History Hx Psychiatric Treatment: PATIENT HAS AN EXTENSIVE HISTORY OF PAST VISITS FOR ALCOHOL ABUSE AT [facility]. PATIENT WAS LAST ADMITTED TO [facility] FROM 06/21/15 TO 05/05/16 FOR ALCOHOL INDUCED MOOD DISORDER. Reports at least 30+ lifetime psychiatric admissions. Reports at least 6 previous suicide attempts by overdosing, cutting his wrists, and walking in front of traffic. History of Inpatient Treatment: Yes Guns or firearms in home: No Social History Single, homeless male. Hx Alcohol Use: Yes Hx Tobacco Use: Yes Hx Substance Use: Yes (COCAINE, MARIJUANA) Substance Use Type: Alcohol, Crack, Marijuana, Cocaine Other Substances Used: ADMITS TO DRINKING BEER DAILY AND USING COCAINE Hx of Substance Use Treatment: Yes Family Psychiatric History Negative Allergies-Medications (Allergen,Severity, Reaction): Coded Allergies: penicillin G (Unverified Adverse Reaction, Severe, SYNCOPE, 08/08/17) PT DENIES ANY ALLERGY Reported Meds & Prescriptions Reported Meds & Active Scripts Active Remeron (Mirtazapine) 15 Mg Tab 15 Mg PO HS PRN 30 Days Reported Vistaril (Hydroxyzine Pamoate) 50 Mg Cap 50 Mg PO TID Abilify (Aripiprazole) 2 Mg Tab Unknown Dose PO DAILY Wellbutrin SR 12 HR (Bupropion HCl) 100 Mg Tab Unknown Dose PO Q12HR Review of Systems Psychiatric: DENIES: Anxiety, Confusion, Mood changes, Depression, Hallucinations, Agitation, Suicidal Ideation, Homicidal Ideation, Delusions Except as stated in HPI: all other systems reviewed are Neg Mental Status Examination Appearance: Appropriate Consciousness: Alert Orientation: x4 Motor Activity: Normal gait Speech: Unremarkable Language: Adequate Fund of Knowledge: Adequate Attention and Concentration: Adequate Memory: Unremarkable Mood: Appropriate Affect: Appropriate Thought Process & Associations: Intact, Logical, Goal directed Thought Content: Appropriate Hallucination Type: None Delusion Type: None Suicidal Ideation: No Suicidal Plan: No Suicidal Intention: No Homicidal Ideation: No Homicidal Plan: No Homicidal Intention: No Judgment: Impulsive MDM Medical Decision Making Medical Record Reviewed: Yes Assessment/Plan 51-year-old white single, homeless male with history of alcohol dependence presents to emergency department under Delgado act by PD. He contacted the police advising them he was feeling suicidal and he was going to walk out into traffic or cut his wrist. The patient was intoxicated at the time and presented with blood alcohol level of 269. This is a patient known to the medical staff and myself for prior visits. The patient was monitored in secure environment and allow to sober up clinically. The patient slept while he was in the ED. the patient does not present any evidence of unstable mental illness at this time and therefore does not meet criteria to remain under the Delgado act. The patient primary diagnosis is alcohol and substance use. Unfortunately the patient wants to be admitted to the treatment center of his choice and at the time that he chooses. When we begin to engage in a discussion regarding discharge from the ED he then begins to enumerate several reasons why he should not be discharged from the ED including that he needs to sleep, that he feels weak, that he may go into withdrawal. Patient does not meet Delgado act criteria at this time. Needs to folow up with Gr[facility] at [facility]. Orders Orders Complete Blood Count With Diff (09/16/17 01:29) Comprehensive Metabolic Panel (09/16/17 01:29) Thyroid Stimulating Hormone (09/16/17 01:29) Psych Screen (09/16/17 01:29) Drug Screen, Random Urine (09/16/17 01:29) Alcohol (Ethanol) (09/16/17 01:29) Salicylates (Aspirin) (09/16/17 01:29) Tylenol (Acetaminophen) (09/16/17 01:29) Chlordiazepoxide (Librium) (09/16/17 01:45) Diet Regular Basic (09/16/17 Breakfast) Results Vital Signs Date Time Temp Pulse Resp B/P (MAP) Pulse Ox O2 Delivery O2 Flow Rate FiO2 09/16/17 05:52 98.7 85 15 129/91 (104) 96 Room Air 09/16/17 02:20 98.3 99 16 119/88 (98) 98 Room Air 09/16/17 00:00 99.0 98 20 169/103 (125) 99 Laboratory Tests Test 09/16/17 01:40 White Blood Count 10.6 Red Blood Count 5.75 Hemoglobin 18.3 Hematocrit 51.5 Mean Corpuscular Volume 89.6 Mean Corpuscular Hemoglobin 31.9 Mean Corpuscular Hemoglobin Concent 35.6 Red Cell Distribution Width 15.7 Platelet Count 324 Mean Platelet Volume 7.3 Neutrophils (%) (Auto) 47.4 Lymphocytes (%) (Auto) 36.1 Monocytes (%) (Auto) 8.7 Eosinophils (%) (Auto) 6.7 Basophils (%) (Auto) 1.1 Neutrophils # (Auto) 5.0 Lymphocytes # (Auto) 3.8 Monocytes # (Auto) 0.9 Eosinophils # (Auto) 0.7 Basophils # (Auto) 0.1 CBC Comment DIFF FINAL Differential Comment Blood Urea Nitrogen 5 Creatinine 0.83 Random Glucose 72 Total Protein 8.7 Albumin 4.5 Calcium Level 8.8 Alkaline Phosphatase 88 Aspartate Amino Transf (AST/SGOT) 101 Alanine Aminotransferase (ALT/SGPT) 141 Total Bilirubin 0.5 Sodium Level 139 Potassium Level 3.5 Chloride Level 103 Carbon Dioxide Level 23.2 Anion Gap 13 Estimat Glomerular Filtration Rate 98 Thyroid Stimulating Hormone 3rd Gen 3.210 Salicylates Level LESS THAN 1.7 Urine Opiates Screen NEG Acetaminophen Level LESS THAN 2.0 Urine Barbiturates Screen NEG Urine Amphetamines Screen NEG Urine Benzodiazepines Screen NEG Urine Cocaine Screen NEG Urine Cannabinoids Screen NEG Ethyl Alcohol Level 269 Diagnosis Primary Impression: Alcohol dependence with acute alcoholic intoxication Psychiatrically Cleared: Yes Med/ Other Pt Specific Info: No Meds Exist/No RX given Disposition: 01 DISCHARGE HOME Condition: Stable Venita Fowler Sep 16, 2017 10:39
--- NOTE | 2017-09-16 10:49 | PD ---
Physical Exam Time Seen by Provider: 10:46 SONU Gooden has evaluated the patient, lifted the Delgado act and cleared the patient for discharge. Data Data Last Documented VS Vital Signs Date Time Temp Pulse Resp B/P (MAP) Pulse Ox O2 Delivery O2 Flow Rate FiO2 09/16/17 05:52 98.7 85 15 129/91 (104) 96 Room Air Orders Orders Complete Blood Count With Diff (09/16/17 01:29) Comprehensive Metabolic Panel (09/16/17 01:29) Thyroid Stimulating Hormone (09/16/17 01:29) Psych Screen (09/16/17 01:29) Drug Screen, Random Urine (09/16/17 01:29) Alcohol (Ethanol) (09/16/17 01:29) Salicylates (Aspirin) (09/16/17:29) Tylenol (Acetaminophen) (09/16/17 01:29) Chlordiazepoxide (Librium) (09/16/17 01:45) Diet Regular Basic (09/16/17 Breakfast) Labs Laboratory Tests Test 09/16/17 01:40 White Blood Count 10.6 TH/MM3 Red Blood Count 5.75 MIL/MM3 Hemoglobin 18.3 GM/DL Hematocrit 51.5 % Mean Corpuscular Volume 89.6 FL Mean Corpuscular Hemoglobin 31.9 PG Mean Corpuscular Hemoglobin Concent 35.6 % Red Cell Distribution Width 15.7 % Platelet Count 324 TH/MM3 Mean Platelet Volume 7.3 FL Neutrophils (%) (Auto) 47.4 % Lymphocytes (%) (Auto) 36.1 % Monocytes (%) (Auto) 8.7 % Eosinophils (%) (Auto) 6.7 % Basophils (%) (Auto) 1.1 % Neutrophils # (Auto) 5.0 TH/MM3 Lymphocytes # (Auto) 3.8 TH/MM3 Monocytes # (Auto) 0.9 TH/MM3 Eosinophils # (Auto) 0.7 TH/MM3 Basophils # (Auto) 0.1 TH/MM3 CBC Comment DIFF FINAL Differential Comment Blood Urea Nitrogen 5 MG/DL Creatinine 0.83 MG/DL Random Glucose 72 MG/DL Total Protein 8.7 GM/DL Albumin 4.5 GM/DL Calcium Level 8.8 MG/DL Alkaline Phosphatase 88 U/L Aspartate Amino Transf (AST/SGOT) 101 U/L Alanine Aminotransferase (ALT/SGPT) 141 U/L Total Bilirubin 0.5 MG/DL Sodium Level 139 MEQ/L Potassium Level 3.5 MEQ/L Chloride Level 103 MEQ/L Carbon Dioxide Level 23.2 MEQ/L Anion Gap 13 MEQ/L Estimat Glomerular Filtration Rate 98 ML/MIN Thyroid Stimulating Hormone 3rd Gen 3.210 uIU/ML Salicylates Level LESS THAN 1.7 MG/DL Urine Opiates Screen NEG Acetaminophen Level LESS THAN 2.0 MCG/ML Urine Barbiturates Screen NEG Urine Amphetamines Screen NEG Urine Benzodiazepines Screen NEG Urine Cocaine Screen NEG Urine Cannabinoids Screen NEG Ethyl Alcohol Level 269 MG/DL MDM Supervised Visit with ELEONORA: No Narrative Course SONU Nathan has evaluated the patient, lifted the Delgado act and cleared the patient for discharge. Patient contracts safety. Denies suicidal or homicidal ideations. Patient will be provided community resource packet to /SURINDER for follow-up. Has friends and family for support. Patient was medically cleared by alternate provider prior to psych screening. Patient has been evaluated by psychiatry and and is now cleared for discharge. Diagnosis Primary Impression: Alcohol abuse Referrals: SURINDER (Out patient) [facility] Primary Care Physician Psychiatrist Aron [facility] Patient Instructions: Abuse of Alcohol (ED), Alcohol Dependence (ED), Alcohol Intoxication (ED), General Instructions Additional Instruction: Contract safety to your self and others Stop drinking alcohol Follow-up in the community for community support, such as Alcoholics Anonymous Follow-up with psychiatry Follow-up with primary care provider Follow-up with Sean Blount Return to the emergency department immediately with worsening of symptoms Med/Other Pt SpecificInfo: No Change to Meds, No Meds Exist/No RX given Disposition: 01 DISCHARGE HOME Condition: Stable Aubree Petersen Sep 16, 2017 10:49
== END 2017-09-16 11:07 | disposition home or self-care (01) ==
LOC: NEPD 23:52
DX: F10.229 Alcohol dependence with intoxication, unspecified (principal); F31.9 Bipolar disorder, unspecified; F41.9 Anxiety disorder, unspecified; F20.9 Schizophrenia, unspecified; F14.90 Cocaine use, unspecified, uncomplicated; F12.90 Cannabis use, unspecified, uncomplicated; Y90.8 Blood alcohol level of 240 mg/100 ml or more; Z86.73 Personal history of transient ischemic attack (TIA), and cerebral infarction without residual deficits; Z59.0 Homelessness
CPT/HCPCS: 80053; 80307; 84443; 85025; 99284